=== PATIENT | male | born 1965 | race Caucasian/White ===

== ENCOUNTER 2016-10-07 02:14 | Inpatient (IN) | payer OTHER ==
[2016-10-07] VITALS (9 sets, daily range): BP systolic 98–128; BP diastolic 63–81
[~2016-10-07] VITALS: Ht 167.6 cm; Wt 81.6 kg
[~2016-10-07 02:14] MED LIST: NORVASC5 MG ORAL
--- NOTE | 2016-10-07 02:21 | Emergency Room Report ---
History of Present Illness General Chief Complaint: Dyspnea/Respdistress Source: Patient, Medical Record Present Illness HPI This is a 51-year-old male with a history diabetes and hypertension. He also has a psychiatric history taking antipsychotic medication. He is a smoker. He presents with chief complaint of shortness of breath. Onset for one day. Denies any fever or chills. Worse with exertion. Called 911. History is limited because the patient is a poor historian secondary to his mental capacity. Denies any chest pain. Allergies: Coded Allergies: No Known Allergies (Unverified , 10/07/16) Patient History Past Medical History: see triage record, old chart reviewed, DM, HTN, psych hx Past Surgical History: other Pertinent Family History: none Social History: Reports: smoking Immunizations: other Reviewed Nursing Documentation: PMH: Agreed, PSxH: Agreed Nursing Documentation-PMH Hx COPD: Yes History Of Psychiatric Problem: Yes - PTSD Review of Systems Eye: Denies: blurred vision, eye pain ENT: Denies: ear pain, nose congestion, throat swelling Respiratory: Reports: cough, shortness of breath Cardiovascular: Denies: chest pain, palpitations Gastrointestinal: Denies: abdominal pain, diarrhea, nausea, vomiting Musculoskeletal: Denies: back pain, joint pain Skin: Denies: rash Neurological: Denies: headache, numbness Endocrine: Denies: increased thirst, increased urine Hematologic/Lymphatic: Denies: easy bruising All Other Systems: negative except mentioned in HPI Physical Exam Vital Signs Date Time Temp Pulse Resp B/P Pulse Ox O2 Delivery O2 Flow Rate FiO2 10/07/16 02:00 97.7 90 18 100/69 81 Non-Rebreather 15.0 vitals with hypoxia Sp02 EP Interpretation: reviewed, normal General Appearance: well appearing, alert, moderate distress Head: normocephalic, atraumatic Eyes: bilateral eye EOMI, bilateral eye PERRL ENT: hearing grossly normal, normal pharynx Neck: full range of motion, supple, no meningismus Respiratory: chest non-tender, decreased breath sounds, accessory muscle use, wheezing Cardiovascular #1: regular rate, rhythm, no murmur Gastrointestinal: normal bowel sounds, non tender, no mass, no organomegaly, no bruit, non-distended Musculoskeletal: back normal, normal range of motion Neurologic: alert, oriented x3 Psychiatric: mood/affect normal Skin: warm/dry Procedures Critical Care Time Critical Care Time Critical care is mandated in this patient who presented with respiratory distress from chf and copd. Patient require my urgent intervention to attenuate the risks of respiratory collapse which may lead to cardiovascular collapse and . Critical care time is 35 minutes excluding any reportable procedure. Critical care time included evaluation, multiple reevaluation, looking at old charts, interpreting laboratory and diagnostic data, discussing case with patient and family and consultants, and charting. Medical Decision Making Diagnostic Impression: Primary Impression: Respiratory failure with hypoxia Qualified Codes: J96.01 - Acute respiratory failure with hypoxia Additional Impressions: COPD with acute exacerbation Acute exacerbation of CHF (congestive heart failure) Qualified Codes: I50.9 - Heart failure, unspecified Anemia in chronic kidney disease (CKD) Chronic kidney disease Qualified Codes: N18.9 - Chronic kidney disease, unspecified Hyponatremia ER Course Patient presents with acute respiratory failure. He has a component of COPD exacerbation and acute on chronic respiratory failure. He also CHF. Her sent her troponin negative. He felt better now but remained hypoxic off the BiPAP. Will admit to [facility]. Laboratory Tests Test 10/07/16 02:20 10/07/16 03:13 10/07/16 04:30 White Blood Count 10.9 K/UL (4.8-10.8) H Red Blood Count 4.06 M/UL (4.70-6.10) L Hemoglobin 11.7 G/DL (14.2-18.0) L Hematocrit 33.6 % (42.0-52.0) L Mean Corpuscular Volume 83 FL (80-99) Mean Corpuscular Hemoglobin 28.8 PG (27.0-31.0) Mean Corpuscular Hemoglobin Concent 34.7 G/DL (32.0-36.0) Red Cell Distribution Width 12.6 % (11.6-14.8) Platelet Count 249 K/UL (150-450) Mean Platelet Volume 6.9 FL (6.5-10.1) Neutrophils (%) (Auto) 83.4 % (45.0-75.0) H Lymphocytes (%) (Auto) 12.8 % (20.0-45.0) L Monocytes (%) (Auto) 1.8 % (1.0-10.0) Eosinophils (%) (Auto) 1.4 % (0.0-3.0) Basophils (%) (Auto) 0.6 % (0.0-2.0) Sodium Level 127 mEQ/L (135-145) L Potassium Level 4.3 mEQ/L (3.4-4.9) Chloride Level 85 mEQ/L (98-107) L Carbon Dioxide Level 22 mEQ/L (20-30) Anion Gap 20 (5-15) H Blood Urea Nitrogen 25 mg/dL (7-23) H Creatinine 1.7 mg/dL (0.7-1.2) H Estimat Glomerular Filtration Rate 42.4 mL/min (>60) Glucose Level 138 mg/dL (74-106) H Calcium Level 9.2 mg/dL (8.6-10.2) Total Bilirubin 0.5 mg/dL (0.0-1.2) Aspartate Amino Transf (AST/SGOT) 35 U/L (5-40) Alanine Aminotransferase (ALT/SGPT) 20 U/L (3-41) Alkaline Phosphatase 115 U/L (40-129) Total Creatine Kinase 354 U/L (38-174) H Creatine Kinase MB 1.6 ng/mL (< 6.7) Creatine Kinase MB Relative Index 0.4 Troponin I < 0.30 ng/mL (<=0.30) Pro-B-Type Natriuretic Peptide 844 pg/mL (0-125) H Total Protein 7.0 g/dL (6.6-8.7) Albumin 3.9 g/dL (3.5-5.2) Globulin 3.1 g/dL Albumin/Globulin Ratio 1.2 (1.0-2.7) Arterial Blood pH 7.336 (7.350-7.450) Arterial Blood Partial Pressure CO2 42.4 mmHg (35.0-45.0) Arterial Blood Partial Pressure O2 71.4 mmHg (75.0-100.0) L Arterial Blood HCO3 22.2 mmol/L (22.0-26.0) Arterial Blood Oxygen Saturation 92.9 % (92.0-98.0) Arterial Blood Base Excess -3.5 Rivera Test Positive Urine Color Pale yellow Urine Appearance Clear Urine pH 5 (4.5-8.0) Urine Specific [place] 1.015 (1.005-1.035) Urine Protein 1+ (NEGATIVE) H Urine Glucose (UA) Negative (NEGATIVE) Urine Ketones Negative (NEGATIVE) Urine Occult Blood 2+ (NEGATIVE) H Urine Nitrite Negative (NEGATIVE) Urine Bilirubin Negative (NEGATIVE) Urine Urobilinogen Normal MG/DL (0.0-1.0) Urine Leukocyte Esterase Negative (NEGATIVE) Urine RBC 2-4 /HPF (0 - 0) H Urine WBC 0-2 /HPF (0 - 0) Urine Squamous Epithelial Cells Few /LPF (NONE/OCC) Urine Bacteria Few /HPF (NONE) Lab Results Impression labs showed hyponatremia and elevated BNP. EKG Diagnostic Results Rate: normal Rhythm: NSR ST Segments: no acute changes Rhythm Strip Diag. Results EP Interpretation: yes Rate: 90 Rhythm: NSR, no PVC's, no ectopy Chest X-Ray Diagnostic Results EP Interpretation: Yes Findings: no consolidation, no effusion, no pneumothorax, other - chf Number of Views: 1 Last Vital Signs Date Time Temp Pulse Resp B/P Pulse Ox O2 Delivery O2 Flow Rate FiO2 10/07/16 02:07 90 18 Non-Rebreather 15.0 10/07/16 02:00 97.7 100/69 81 Status: improved Disposition: ADMITTED INPATIENT Condition: Critical RUBA LOVETT M.D. Oct 07, 2016 02:21
[2016-10-07] MEDS ORDERED: ACETAMINOPHEN-1 EAC1 ORAL (02:28)
[2016-10-07] MEDS ORDERED: TRAZODONE HCL100 MG ORAL (02:28)
[2016-10-07] MEDS ORDERED: GLIPIZIDE10 MG PO (02:28)
[2016-10-07] MEDS ORDERED: GEMFIBROZIL600 M1 PO (02:28)
[2016-10-07] MEDS ORDERED: HYDROXYZINE HCL50 M1 PO (02:28)
[2016-10-07] MEDS ORDERED: CYCLOBENZAPRINE10 MG ORAL (02:28)
[2016-10-07] MEDS ORDERED: LISINOPRIL5 MG ORAL (02:28)
[2016-10-07] MEDS ORDERED: TEMAZEPAM15 MG ORAL (02:28)
[2016-10-07] MEDS ORDERED: NAPROXEN250 M1 PO (02:28)
[2016-10-07] MEDS ORDERED: COGENTIN1 MG ORAL (02:28)
[2016-10-07] MEDS ORDERED: MIRTAZAPINE30 M1 ORAL (02:28)
[2016-10-07] MEDS ORDERED: ABILIFY20 MG ORAL (02:28)
[2016-10-07] MEDS ORDERED: TAMSULOSIN HCL0.4 MG ORAL (02:28)
[2016-10-07] MEDS ORDERED: OMEPRAZOLE20 M2 ORAL (02:28)
[2016-10-07] MEDS ORDERED: METFORMIN HCL500 M4 ORAL (02:28)
[2016-10-07] MEDS ORDERED: NEURONTIN300 MG ORAL ×2 (02:28)
[2016-10-07] MEDS ORDERED: SEROQUEL XR200 MG ORAL (02:28)
[2016-10-07] MEDS ORDERED: Solu-MEDROL 125mg Inj IVP ONE (02:30)
[2016-10-07] MEDS ORDERED: Ipratropium 0.02% Inh Soln 2.5ml UD HHN ONE (02:30)
[2016-10-07] MEDS ORDERED: Albuterol ud Inhalation HHN ONE (02:30)
[2016-10-07 02:34] LABS: BASOPHILS % (AUTO) 0.6 % (0.0-2.0); EOSINOPHILS % (AUTO) 1.4 % (0.0-3.0); LYMPHOCYTES % (AUTO) 12.8 % (20.0-45.0); MEAN CORPUSCULAR HEMOGLOBIN 28.8 PG (27.0-31.0); MEAN CORPUSCULAR HGB CONC 34.7 G/DL (32.0-36.0); MEAN CORPUSCULAR VOLUME 83 FL (80-99); MEAN PLATELET VOLUME 6.9 FL (6.5-10.1); MONOCYTES % (AUTO) 1.8 % (1.0-10.0); NEUTROPHILS % (AUTO) 83.4 % (45.0-75.0); PLATELET COUNT 249 K/UL (150-450); RED BLOOD COUNT 4.06 M/UL (4.70-6.10); RED CELL DISTRIBUTION WIDTH 12.6 % (11.6-14.8); WHITE BLOOD COUNT 10.9 K/UL (4.8-10.8)
[2016-10-07 02:46] LABS: TROPONIN I < 0.30 ng/mL (<=0.30)
[2016-10-07 02:50] LABS: ALBUMIN/GLOBULIN RATIO 1.2 (1.0-2.7); CALCIUM 9.2 mg/dL (8.6-10.2); CREATININE 1.7 mg/dL (0.7-1.2); GLOMERULAR FILTRATION RATE 42.4 mL/min (>60); POTASSIUM 4.3 mEQ/L (3.4-4.9)
[2016-10-07 03:01] LABS: CKMB 1.6 ng/mL (< 6.7)
[2016-10-07 03:34] LABS: ABG ALLEN TEST POSITIVE; ABG BASE EXCESS -3.5; ABG PCO2 42.4 mmHg (35.0-45.0)
[2016-10-07 04:37] LABS: APPEARANCE,URINE CLEAR; KETONES,URINE NEGATIVE (NEGATIVE); LEUKOCYTE ESTERASE ,URINE NEGATIVE (NEGATIVE); NITRITE,URINE NEGATIVE (NEGATIVE); PH,URINE 5 (4.5-8.0); PROTEIN,URINE 1+ (NEGATIVE); UROBILINOGEN,URINE NORMAL MG/DL (0.0-1.0)
[2016-10-07 04:45] LABS: WBC,URINE 0-2 /HPF (0 - 0)
[2016-10-07 04:46] LABS: BACTERIA,URINE FEW /HPF; SQUAMOUS EPITHELIAL CELL,UR FEW /LPF (NONE/OCC)
[2016-10-07] MEDS ORDERED: Miralax 17gm pkt ORAL PRN (07:00)
[2016-10-07] MEDS ORDERED: DuoNeb 0.5-3(2.5)mg/3ml neb HHN PRN (07:00)
[2016-10-07] MEDS ORDERED: Cyclobenzaprine 10mg Tab ORAL PRN (09:00)
[2016-10-07] MEDS: Tamsulosin 0.4mg cap ORAL SCH (09:15)
[2016-10-07] MEDS: Heparin 5000 units/ml inj SUBQ SCH ×2 (09:17→21:54)
[2016-10-07 10:35] LABS: ALANINE AMINOTRANSFERASE 22 U/L (3-41); ALBUMIN/GLOBULIN RATIO 1.2 (1.0-2.7); ANION GAP 21 (5-15); ASPARTATE AMINO TRANSFERASE 39 U/L (5-40); CALCIUM 9.4 mg/dL (8.6-10.2); CARBON DIOXIDE 21 mEQ/L (20-30); CHLORIDE 85 mEQ/L (98-107); CREATININE 1.6 mg/dL (0.7-1.2); GLOMERULAR FILTRATION RATE 45.4 mL/min (>60); HEMOLYSIS 22; MAGNESIUM 2.1 mg/dL (1.7-2.5); PHOSPHORUS 3.1 mg/dL (2.5-4.8); POTASSIUM 4.4 mEQ/L (3.4-4.9); SODIUM 127 mEQ/L (135-145); TOTAL PROTEIN 7.7 g/dL (6.6-8.7); URIC ACID 10.4 mg/dL (3.0-7.5)
[2016-10-07 10:40] LABS: TROPONIN I < 0.30 ng/mL (<=0.30)
[2016-10-07] MEDS: NovoLOG Insulin Flexpen SUBQ SCH ×3 (10:40→21:55)
[2016-10-07 10:53] LABS: FREE T3 1.5 pg/mL (2.3-4.2)
--- NOTE | 2016-10-07 11:36 | Consultation ---
History of Present Illness General Date patient seen: Oct 07, 2016 Chief Complaint: Dyspnea/Respdistress Referring physician: Dr. Brito Present Illness HPI 51-year-old male with a history of COPD, diabetes and hypertension, psychiatric history, smoker presented with chief complaint of shortness of breath. Onset for one day. Denies any fever or chills. Worse with exertion. Called 911. History is limited because the patient is a poor historian secondary to his mental capacity. Denies any chest pain. complaining of right lower flank pain Allergies: Coded Allergies: No Known Allergies (Unverified , 10/07/16) Medication History Scheduled Amlodipine Besylate (Norvasc), 5 MG ORAL DAILY, (Reported) Aripiprazole* (Abilify*), 30 MG ORAL BEDTIME, (Reported) Benztropine Mesylate (Benztropine Mesylate), 1 MG ORAL BEDTIME, (Reported) Cyclobenzaprine Hcl* (Flexeril*), 10 MG ORAL THREE TIMES A DAY, (Reported) Gabapentin (Neurontin), 300 MG ORAL BID, (Reported) Gabapentin (Neurontin), 600 MG ORAL TID, (Reported) Gemfibrozil (Gemfibrozil), 600 MG PO BID, (Reported) Glipizide (Glipizide), 5 MG PO BID, (Reported) Hydroxyzine Hcl (Hydroxyzine Hcl), 50 MG PO BEDTIME, (Reported) Lisinopril (Lisinopril*), 5 MG ORAL DAILY, (Reported) Metformin Hcl (Metformin Hcl Er), 500 MG ORAL BID, (Reported) Mirtazapine (Mirtazapine), 30 MG ORAL BEDTIME, (Reported) Naproxen (Naproxen), 500 MG PO BID, (Reported) Omeprazole (Omeprazole), 20 MG ORAL DAILY, (Reported) Quetiapine Fumarate (Seroquel Xr), 200 MG ORAL BEDTIME, (Reported) Tamsulosin Hcl (Tamsulosin Hcl*), 0.4 MG ORAL DAILY, (Reported) Temazepam (Temazepam*), 15 MG ORAL BEDTIME, (Reported) Trazodone Hcl* (Desyrel*), 150 MG ORAL BEDTIME, (Reported) Scheduled PRN Acetaminophen With Codeine (T#3) (Tylenol #3 Tab*), 1 TAB ORAL BID PRN for For Pain, (Reported) Patient History Healthcare decision maker Resuscitation status Full Code Advanced Directive on File Past Medical/Surgical History Past Medical/Surgical History: (1) Hypertension (2) PTSD (post-traumatic stress disorder) Family History Family History: (1) Nicotine addiction Review of Systems All Other Systems: negative except mentioned in HPI Physical Exam General Appearance: WD/WN Lines, tubes and drains: peripheral HEENT: normocephalic, atraumatic Neck: non-tender, normal alignment Respiratory/Chest: chest wall non-tender, rhonchi - bilaterally Cardiovascular/Chest: normal peripheral pulses, normal rate Abdomen: normal bowel sounds, non tender Extremities: normal range of motion Skin Exam: normal pigmentation 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 normal Last 24 Hour Vital Signs Date Time Temp Pulse Resp B/P Pulse Ox O2 Delivery O2 Flow Rate FiO2 10/07/16 09:16 86 115/70 10/07/16 08:00 97.3 87 18 115/70 93 Non-Rebreather 10/07/16 07:42 74 17 106/80 97 Bi-pap 80 10/07/16 07:15 79 14 Bi-pap 80 10/07/16 07:15 97.7 79 14 106/80 94 Bi-pap 80 10/07/16 06:59 81 15 97 Facial 80 10/07/16 06:56 75 13 110/77 100 Bi-pap 80 10/07/16 05:49 81 17 114/73 98 Bi-pap 80 10/07/16 05:02 75 18 92 Facial 80 10/07/16 04:56 80 10/07/16 04:32 85 19 106/73 94 Non-Rebreather 15.0 10/07/16 03:11 70 10/07/16 03:11 86 14 98/63 94 Bi-pap 70 10/07/16 03:09 70 10/07/16 02:50 89 14 98 Facial 100 10/07/16 02:49 90 19 98 Bi-pap 100 10/07/16 02:44 100 10/07/16 02:15 88 15 97 Bi-pap 100 10/07/16 02:15 87 15 Bi-pap 100 10/07/16 02:07 90 18 Non-Rebreather 15.0 10/07/16 02:00 97.7 90 18 100/69 81 Non-Rebreather 15.0 Intake and Output 10/06/16 10/07/16 19:00 07:00 Output Total 600 ml Balance -600 ml Output Urine Total 600 ml Laboratory Tests Test 10/07/16 02:20 10/07/16 03:13 10/07/16 04:30 10/07/16 09:20 White Blood Count 10.9 K/UL (4.8-10.8) H Red Blood Count 4.06 M/UL (4.70-6.10) L Hemoglobin 11.7 G/DL (14.2-18.0) L Hematocrit 33.6 % (42.0-52.0) L Mean Corpuscular Volume 83 FL (80-99) Mean Corpuscular Hemoglobin 28.8 PG (27.0-31.0) Mean Corpuscular Hemoglobin Concent 34.7 G/DL (32.0-36.0) Red Cell Distribution Width 12.6 % (11.6-14.8) Platelet Count 249 K/UL (150-450) Mean Platelet Volume 6.9 FL (6.5-10.1) Neutrophils (%) (Auto) 83.4 % (45.0-75.0) H Lymphocytes (%) (Auto) 12.8 % (20.0-45.0) L Monocytes (%) (Auto) 1.8 % (1.0-10.0) Eosinophils (%) (Auto) 1.4 % (0.0-3.0) Basophils (%) (Auto) 0.6 % (0.0-2.0) Sodium Level 127 mEQ/L (135-145) L 127 mEQ/L (135-145) L Potassium Level 4.3 mEQ/L (3.4-4.9) 4.4 mEQ/L (3.4-4.9) Chloride Level 85 mEQ/L (98-107) L 85 mEQ/L (98-107) L Carbon Dioxide Level 22 mEQ/L (20-30) 21 mEQ/L (20-30) Anion Gap 20 (5-15) H 21 (5-15) H Blood Urea Nitrogen 25 mg/dL (7-23) H 28 mg/dL (7-23) H Creatinine 1.7 mg/dL (0.7-1.2) H 1.6 mg/dL (0.7-1.2) H Estimat Glomerular Filtration Rate 42.4 mL/min (>60) 45.4 mL/min (>60) Glucose Level 138 mg/dL (74-106) H 310 mg/dL (74-106) #H Calcium Level 9.2 mg/dL (8.6-10.2) 9.4 mg/dL (8.6-10.2) Total Bilirubin 0.5 mg/dL (0.0-1.2) 0.5 mg/dL (0.0-1.2) Aspartate Amino Transf (AST/SGOT) 35 U/L (5-40) 39 U/L (5-40) Alanine Aminotransferase (ALT/SGPT) 20 U/L (3-41) 22 U/L (3-41) Alkaline Phosphatase 115 U/L (40-129) 130 U/L (40-129) H Total Creatine Kinase 354 U/L (38-174) H 292 U/L (38-174) H Creatine Kinase MB 1.6 ng/mL (< 6.7) Creatine Kinase MB Relative Index 0.4 Troponin I < 0.30 ng/mL (<=0.30) < 0.30 ng/mL (<=0.30) Pro-B-Type Natriuretic Peptide 844 pg/mL (0-125) H Total Protein 7.0 g/dL (6.6-8.7) 7.7 g/dL (6.6-8.7) Albumin 3.9 g/dL (3.5-5.2) 4.2 g/dL (3.5-5.2) Globulin 3.1 g/dL 3.5 g/dL Albumin/Globulin Ratio 1.2 (1.0-2.7) 1.2 (1.0-2.7) Arterial Blood pH 7.336 (7.350-7.450) Arterial Blood Partial Pressure CO2 42.4 mmHg (35.0-45.0) Arterial Blood Partial Pressure O2 71.4 mmHg (75.0-100.0) L Arterial Blood HCO3 22.2 mmol/L (22.0-26.0) Arterial Blood Oxygen Saturation 92.9 % (92.0-98.0) Arterial Blood Base Excess -3.5 Rivera Test Positive Urine Color Pale yellow Urine Appearance Clear Urine pH 5 (4.5-8.0) Urine Specific [place]ang 1.015 (1.005-1.035) Urine Protein 1+ (NEGATIVE) H Urine Glucose (UA) Negative (NEGATIVE) Urine Ketones Negative (NEGATIVE) Urine Occult Blood 2+ (NEGATIVE) H Urine Nitrite Negative (NEGATIVE) Urine Bilirubin Negative (NEGATIVE) Urine Urobilinogen Normal MG/DL (0.0-1.0) Urine Leukocyte Esterase Negative (NEGATIVE) Urine RBC 2-4 /HPF (0 - 0) H Urine WBC 0-2 /HPF (0 - 0) Urine Squamous Epithelial Cells Few /LPF (NONE/OCC) Urine Bacteria Few /HPF (NONE) Plasma/Serum Osmolality Pending Uric Acid 10.4 mg/dL (3.0-7.5) H Phosphorus Level 3.1 mg/dL (2.5-4.8) Magnesium Level 2.1 mg/dL (1.7-2.5) Thyroid Stimulating Hormone (TSH) 1.450 uIU/mL (0.300-4.500) Free Thyroxine 1.03 ng/dL (0.86-1.85) Free Triiodothyronine 1.5 pg/mL (2.3-4.2) L Cortisol Pending Height (Feet): 5 Height (Inches): 6.00 Weight (Pounds): 180 Medications Current Medications Medications (Trade) Dose Ordered Sig/Van Route PRN Reason Start Time Stop Time Status Last Admin Dose Admin Acetaminophen (Tylenol) 650 mg Q4H PRN ORAL T>100.5 10/07/16 07:00 11/06/16 06:59 Albuterol/ Ipratropium (DuoNeb 0.5-3(2.5)mg/3ml) 3 ml Q4H PRN HHN Shortness of Breath 10/07/16 07:00 10/12/16 06:59 Amlodipine Besylate (Norvasc) 5 mg DAILY ORAL 10/07/16 09:00 11/06/16 08:59 10/07/16 09:16 Aripiprazole (Abilify) 30 mg BEDTIME ORAL 10/07/16 21:00 11/06/16 20:59 Cyclobenzaprine HCl (Flexeril) 10 mg Q8H PRN ORAL MUSCLE SPASMS 10/07/16 09:00 4/9/17 08:59 Dextrose (Dextrose 50%) STAT PRN IV Hypoglycemia 10/07/16 07:00 11/06/16 06:59 Furosemide (Lasix) 40 mg EVERY 8 HOURS IV 10/07/16 14:00 11/06/16 13:59 Gabapentin (Neurontin) 300 mg BID ORAL 10/07/16 09:00 11/06/16 08:59 10/07/16 09:15 Gemfibrozil (Lopid) 600 mg BID ORAL 10/07/16 09:00 11/06/16 08:59 10/07/16 10:35 Heparin Sodium (Porcine) (Heparin 5000 units/ml) 5,000 units EVERY 12 HOURS SUBQ 10/07/16 09:00 11/06/16 08:59 10/07/16 09:17 Insulin Aspart (NovoLOG) BEFORE MEALS AND HS SUBQ 10/07/16 11:30 11/06/16 11:29 10/07/16 10:40 Morphine Sulfate (Morphine Sulfate) 2 mg Q4H PRN IVP For Pain 10/07/16 11:30 10/14/16 11:29 UNV Ondansetron HCl (Zofran) 4 mg Q6H PRN IVP Nausea & Vomiting 10/07/16 07:00 11/06/16 06:59 Polyethylene Glycol (Miralax) 17 gm DAILYPRN PRN ORAL Constipation 10/07/16 07:00 11/06/16 06:59 Tamsulosin HCl (Flomax) 0.4 mg DAILY ORAL 10/07/16 09:00 11/06/16 08:59 10/07/16 09:15 Temazepam (Restoril) 15 mg HSPRN PRN ORAL Insomnia 10/07/16 21:00 10/14/16 20:59 Trazodone HCl (Desyrel) 150 mg BEDTIME ORAL 10/07/16 21:00 11/06/16 20:59 Assessment/Plan Problem List: (1) Respiratory failure with hypoxia ICD Codes: J96.91 - Respiratory failure, unspecified with hypoxia SNOMED: 30085436015733525 Qualifiers: Qualified Codes: J96.01 - Acute respiratory failure with hypoxia (2) Multiple nodules of lung ICD Codes: R91.8 - Other nonspecific abnormal finding of lung field SNOMED: 400477823 (3) Hyponatremia ICD Codes: E87.1 - Hypo-osmolality and hyponatremia; D63.1 - Anemia in chronic kidney disease SNOMED: 65595996, 461037900 (4) Anemia in chronic kidney disease (CKD) ICD Codes: N18.9 - Chronic kidney disease, unspecified; D63.1 - Anemia in chronic kidney disease SNOMED: 738479547, 757509401 (5) COPD with acute exacerbation ICD Codes: J44.1 - Chronic obstructive pulmonary disease with (acute) exacerbation SNOMED: 735188877, 551924633 (6) Nicotine addiction ICD Codes: F17.200 - Nicotine dependence, unspecified, uncomplicated SNOMED: 74712057 Assessment/Plan sputum for c/s, afb respiratory isolation echocardiogram iv antibiotics sputum induction ppd skin testing TB gold test rule out malignancy. HIV testing ANDRESSA CRAIG Oct 07, 2016 11:36
[2016-10-07 11:37] LABS: MEAN CORPUSCULAR HEMOGLOBIN 28.6 PG (27.0-31.0); MEAN CORPUSCULAR HGB CONC 33.9 G/DL (32.0-36.0); MEAN CORPUSCULAR VOLUME 84 FL (80-99); MEAN PLATELET VOLUME 6.2 FL (6.5-10.1); PLATELET COUNT 254 K/UL (150-450); RED BLOOD COUNT 4.16 M/UL (4.70-6.10); WHITE BLOOD COUNT 11.4 K/UL (4.8-10.8)
[2016-10-07] MEDS: Morphine Sulfate 2mg/ml Inj IVP PRN (11:43)
[2016-10-07] MEDS ORDERED: PPD Tuberculin Skin Test 5TU IDERMAL ONE (12:30)
[2016-10-07 12:44] LABS: BAND NEUTROPHILS % (MANUAL) 4 % (0-8); BASOPHILS % (MANUAL) 0 % (0-2); EOSINOPHILS % (MANUAL) 2 % (0-3); LYMPHOCYTES % (MANUAL) 5 % (20-45); NEUTROPHILS % (MANUAL) 86 % (45-75); PLATELET ESTIMATE ADEQUATE; PLATELET MORPHOLOGY NORMAL; TOTAL CELLS COUNTED 100
[2016-10-07] MEDS ORDERED: Vancomycin 1.5 GM in D5W 325 ML IVPB ONE (13:30)
--- NOTE | 2016-10-07 13:54 | Diagnostic Imaging Report ---
Indication: Dyspnea Comparison: None A single view chest radiograph was obtained. Findings: Extensive bilateral infiltrates demonstrated within the lungs. Heart size is borderline enlarged. Bones are unremarkable. Impression: Extensive bilateral infiltrates. Pulmonary edema is in the differential
--- NOTE | 2016-10-07 15:42 | Diagnostic Imaging Report ---
Indication: Chest pain Technique: Continuous helical transaxial imaging of the chest was obtained from the thoracic inlet to the upper abdomen. No intravenous contrast was administered. Coronal 2-D reformats were also obtained. Total Dose length Product (DLP): [address] Dose Index Volume (CTDIvol): 26 mGy Comparison: none Findings: Extensive patchy groundglass opacities are demonstrated throughout the lung crook bilaterally. This is nonspecific and could represent a wide variety of different inflammatory and infectious conditions, pulmonary edema (cardiogenic versus noncardiogenic), leaky capillaries, ARDS, hypersensitivity pneumonitis among others. Heart appears to be normal in size. The pulmonary veins do not appear significantly enlarged and as such the findings are probably not cardiogenic or due to left heart decompensation. There is a hiatal hernia present. There are are small nodes in the mediastinum. The axilla appear clear. Cholecystectomy clips noted in the upper abdomen. There is epigastric fat-containing hernia. Impression: Extensive diffuse bilateral pulmonary groundglass opacities of a nonspecific nature. There is large differential diagnosis. The CT scanner at [facility] is accredited by the [employer] and the scans are performed using protocols designed to limit radiation exposure to as low as reasonably achievable to attain images of sufficient resolution adequate for diagnostic evaluation.
--- NOTE | 2016-10-07 16:43 | Diagnostic Imaging Report ---
Indication:Elevated Bun and Creatinine. Technique: Grayscale and duplex Doppler imaging of the kidneys performed. Comparison: None Findings: The size, contour, and echogenicity of both kidneys are within normal limits. There is a small right renal cyst measuring approximately 1.5 cm. There is no hydronephrosis. The IVC and urinary bladder are unremarkable. Kidneys are between 12 and 13 cm. Impression: Right renal cyst. Negative exam otherwise
--- NOTE | 2016-10-07 16:45 | History & Physical ---
History and Physical History & Physicial Monty Irwin MD Oct 07, 2016 16:45
[2016-10-07] MEDS: Piperacillin/Tazobactam 3.375 GM in NS 110 ML IVPB SCH (18:00)
[2016-10-07] MEDS: TraZODone 100mg tab ORAL SCH (21:50)
[2016-10-07] MEDS: ARIPiprazole 10mg tab ORAL SCH (21:56)
--- NOTE | 2016-10-07 22:59 | History and Physical Report ---
DATE OF ADMISSION: 10/07/2016 CHIEF COMPLAINT: Shortness of breath. HISTORY OF PRESENT ILLNESS: This is a 51 years old very unfortunate gentleman with past medical history significant for chronic smoker, diabetic type 2, hypertension, chronic obstructive pulmonary disease, history of psychiatric disorder, and BPH who was presented to the hospital complaining about shortness of breath over the past 24 hours progressively worsening. No fever or chills worsening after exertion. EMS was called. Subsequently, the patient was transferred to the hospital shortly. After initial evaluation, the patient was admitted to the hospital with acute chronic obstructive pulmonary disease exacerbation. Finding was confirmed on the CT scan with possible underlying pneumonia. PAST MEDICAL HISTORY/PAST SURGICAL HISTORY: As above. History of chronic obstructive pulmonary disease, dyslipidemia, hypertension, diabetes type 2, psychiatric disorder, chronic smoker, and BPH. MEDICATIONS: Significant for Norvasc, Abilify, benztropine, Flexeril, Neurontin, gemfibrozil, glipizide, hydroxyzine, lisinopril, metformin, mirtazapine, naproxen, omeprazole, Seroquel, Flomax, temazepam, and trazodone. ALLERGIES: No known drug allergies. SOCIAL HISTORY: The patient is a smoker and extensive history of smoking. No substance abuse. FAMILY HISTORY: Noncontributory. REVIEW OF SYSTEMS: Mostly as above. Denies any dysuria, frequency, or hematuria. Denies any hemoptysis. Complained about his cough. Denies any fall. Denies any head trauma. PHYSICAL EXAMINATION: VITAL SIGNS: On admission from the ER is temperature 97.7, pulse of 92, respiration 18, and blood pressure 100/69. GENERAL: The patient is awake. Shortness of breath on BiPAP. HEENT: His head and neck examination progressively grievance manager and someone intact. Neck was supple. No JVD. LUNGS: Entry with occasional crackles on the bases. Decreased air in the bases. No wheezes was appreciated. HEART: S1, S2. Distant heart sounds. Normal gallop. ABDOMEN: Soft and nontender. Mildly obese. EXTREMITIES: No cyanosis, clubbing, or edema. NEUROLOGIC: Cranial nerves II through XII are grossly intact. Motor . Gait was not assessed. Psychiatric evaluation - mood and affect is intact at this time. Rectal and genitourinary examination was refused and deferred. LABORATORY DATA: From the ER, WBC of 10.9, hemoglobin of 11, hematocrit 33, and platelets is 249,000. ABG - pH of 7.33, pCO2 of 42, pO2 of 71, and oxygen saturation 92%. Sodium 127, potassium 4.4, chloride 85, bicarbonate 21, BUN 28, and creatinine 1.6. GFR is 45. Plasma serum osmolality is 310. Uric acid is pending. Calcium 10.4. First and second troponins are essentially unremarkable. Lactic acid is at 530. CEA is 5.7. TSH is 1.45. Urinalysis, +1 protein, +2 occult blood, otherwise negative not significant and unremarkable. Human immunodeficiency virus test is negative. The patient had a chest x-ray extensive bilateral infiltrates and pulmonary edema versus pneumonia and atypical pneumonia. CT of the chest was done and extensive diffuse bilateral pulmonary ground-glass opacifications after nonspecific in nature. There is a large differential diagnosis for that. The patient's duplex of lower extremity was unremarkable. Echocardiogram showed the ejection fraction of 55% with no evidence of ventricular hypertrophy. Trace tricuspid systolic velocities suggests of the right ventricular systolic pressure of 21, 7 mmHg. No pulmonary regurgitation was present. The patient had the EKG. Normal sinus rhythm, rate of 92, no ST elevation was noted with the left atrial enlargement. ASSESSMENT: 1. Respiratory failure, acute hypoxemic respiratory failure. 2. History of PTSD. 3. Acute chronic obstructive pulmonary disease exacerbation. 4. Bilateral pneumonia. 5. Hypertension. 6. Diabetes type 2. 7. Dyslipidemia. 8. Anemia. 9. Chronic kidney disease. 10. Hyponatremia. PLAN: Admit the patient to [facility]. We will follow up , Pulmonary Critical Care. RECOMMENDATIONS: We will monitor laboratory in the morning. Broad-spectrum antibiotics with vancomycin and Zosyn. We will hold off on the Lasix at this time. We will resume home medications. Accu-Chek with sliding scale. We will hold off on follow up with culture. Monty Irwin M.D. DR: ONUR JOB#: [id number] CC:
[2016-10-08] VITALS: BP 129/75
[2016-10-08] MEDS: Piperacillin/Tazobactam 3.375 GM in NS 110 ML IVPB SCH ×5 (02:00→18:08)
[2016-10-08] MEDS: Morphine Sulfate 2mg/ml Inj IVP PRN ×4 (02:36→20:48)
[2016-10-08 04:00] VITALS: BP 118/77
[2016-10-08] MEDS: NovoLOG Insulin Flexpen SUBQ SCH ×4 (06:38→21:00)
[2016-10-08 07:12] LABS: MEAN CORPUSCULAR HEMOGLOBIN 28.8 PG (27.0-31.0); MEAN CORPUSCULAR HGB CONC 34.3 G/DL (32.0-36.0); MEAN CORPUSCULAR VOLUME 84 FL (80-99); PLATELET COUNT 331 K/UL (150-450); RED BLOOD COUNT 4.52 M/UL (4.70-6.10); RED CELL DISTRIBUTION WIDTH 12.8 % (11.6-14.8); WHITE BLOOD COUNT 18.1 K/UL (4.8-10.8)
[2016-10-08 07:44] LABS: TROPONIN I < 0.30 ng/mL (<=0.30)
[2016-10-08 07:48] LABS: CALCIUM 10.4 mg/dL (8.6-10.2); CREATININE 1.4 mg/dL (0.7-1.2); PHOSPHORUS 1.9 mg/dL (2.5-4.8); POTASSIUM 4.5 mEQ/L (3.4-4.9)
[2016-10-08 08:00] VITALS: BP 120/71
--- NOTE | 2016-10-08 10:25 | Diagnostic Imaging Report ---
Indication: DYSPNEA Technique: XRAY CHEST 1 V Comparison: 10/07/2016 Findings: Compared previous examination extensive interstitial disease remains. However, airspace disease has considerably decreased. No pleural fluid. No other change. Impression: Decreased pulmonary edema. Extensive interstitial disease or interstitial edema remains.
[2016-10-08] MEDS: Tamsulosin 0.4mg cap ORAL SCH (10:28)
[2016-10-08] MEDS: Heparin 5000 units/ml inj SUBQ SCH ×2 (10:29→20:59)
[2016-10-08 10:56] LABS: BAND NEUTROPHILS % (MANUAL) 7 % (0-8); BASOPHILS % (MANUAL) 0 % (0-2); EOSINOPHILS % (MANUAL) 0 % (0-3); LYMPHOCYTES % (MANUAL) 10 % (20-45); NEUTROPHILS % (MANUAL) 80 % (45-75); PLATELET ESTIMATE ADEQUATE; PLATELET MORPHOLOGY NORMAL; TOTAL CELLS COUNTED 100
--- NOTE | 2016-10-08 11:18 | Pulmonology Progress Note ---
Assessment/Plan Problems: (1) Respiratory failure with hypoxia (2) Multiple nodules of lung (3) Hyponatremia (4) Anemia in chronic kidney disease (CKD) (5) COPD with acute exacerbation (6) Nicotine addiction Respiratory: monitor respiratory rate, adjust FIO2, CXR Cardiac: start pressors, continue to monitor HR/BP Renal: F/U I&O, check electrolytes Infectious Disease: check cultures - pt doesnt let the respiratory do the sputum induction, continue antibiotics, add antibiotics, other - on zosyn, vancomycin Gastrointestinal: continue feedings/current rate Endocrine: monitor blood sugar, check HgA1C, continue sliding scale insulin Hematologic: monitor H/H, transfuse if hgb<8.5 Neurologic: PRN Ativan, keep patient comfortable Notes Reviewed: manager market intelligence, cardio, renal Discussed with: consultants, case fitter Subjective ROS Limited/Unobtainable: No Constitutional: Reports: no symptoms HEENT: Repors: no symptoms Allergies: Coded Allergies: No Known Allergies (Unverified , 10/07/16) Objective Last 24 Hour Vital Signs Date Time Temp Pulse Resp B/P Pulse Ox O2 Delivery O2 Flow Rate FiO2 10/08/16 10:28 90 119/78 10/08/16 08:00 97.2 83 23 120/71 100 Non-Rebreather 100 10/08/16 08:00 8 10/08/16 07:38 93 Non-Rebreather 15.0 100 10/08/16 07:37 Non-Rebreather 15.0 100 10/08/16 04:00 98.4 83 20 118/77 92 Non-Rebreather 10/08/16 03:43 85 10/08/16 00:00 98.0 86 20 129/75 93 Non-Rebreather 10/08/16 00:00 82 10/07/16 23:00 98.0 10/07/16 20:00 98.0 93 20 125/81 94 Non-Rebreather 10/07/16 20:00 96 10/07/16 19:00 Non-Rebreather 15.0 100 10/07/16 19:00 94 Non-Rebreather 15.0 100 10/07/16 17:00 97.3 94 16 128/69 91 Non-Rebreather 10/07/16 16:47 91 10/07/16 12:20 97.3 10/07/16 12:00 97.3 77 18 108/73 92 Non-Rebreather 10/07/16 12:00 80 10/07/16 12:00 82 Intake and Output 10/07/16 10/08/16 19:00 07:00 Intake Total 882.5 ml 260.0 ml Output Total 2650 ml 500 ml Balance -1767.5 ml -240.0 ml Intake Oral 720 ml 150 ml IV Total 162.5 ml 110.0 ml Output Urine Total 2650 ml 500 ml # Voids 5 General Appearance: WD/WN, no acute distress HEENT: normocephalic, anicteric Respiratory/Chest: chest wall non-tender, decreased breath sounds Cardiovascular: normal peripheral pulses, normal rate Abdomen: normal bowel sounds, soft, non tender Genitourinary: normal external genitalia Extremities: no cyanosis Skin: no rash Neurologic/Psychiatric: aromatherapist II-XII grossly normal Lymphatic: no neck adenopathy Laboratory Tests 10/07/16 12:15: Blastomyces Ab Immunodiffusion [Pending], Cryptococcus Antigen [Pending], Histoplasma Mycelial Antibody [Pending], Histoplasma Antibody w Mycelial Ag [ Pending], Histoplasma Antibody with Yeast Ag [Pending], TB Test (T-Spot) [ Pending], TB Test Nil Control (T-Spot) [Pending], TB Test Panel A (T-Spot) [ Pending], TB Test Panel B (T-Spot) [Pending], TB Test Positive Control (T-Spot) [Pending] 10/08/16 06:15: White Blood Count 18.1#H, Red Blood Count 4.52L, Hemoglobin 13.0L, Hematocrit 38.0L, Mean Corpuscular Volume 84, Mean Corpuscular Hemoglobin 28.8, Mean Corpuscular Hemoglobin Concent 34.3, Red Cell Distribution Width 12.8, Platelet Count 331, Mean Platelet Volume 7.0, Neutrophils (%) (Auto) , Lymphocytes (%) ( Auto) , Monocytes (%) (Auto) , Eosinophils (%) (Auto) , Basophils (%) (Auto) , Differential Total Cells Counted 100, Neutrophils % (Manual) 80H, Lymphocytes % (Manual) 10L, Monocytes % (Manual) 3, Eosinophils % (Manual) 0, Basophils % ( Manual) 0, Band Neutrophils 7, Platelet Estimate Adequate, Platelet Morphology Normal, Red Blood Cell Morphology Normal, Sodium Level 136, Potassium Level 4.5 , Chloride Level 92L, Carbon Dioxide Level 24, Anion Gap 20H, Blood Urea Nitrogen 38H, Creatinine 1.4H, Estimat Glomerular Filtration Rate 53.0, Glucose Level 184#H, Calcium Level 10.4H, Phosphorus Level 1.9L, Troponin I < 0.30, Albumin 4.5 Current Medications Medications (Trade) Dose Ordered Sig/Van Route PRN Reason Start Time Stop Time Status Last Admin Dose Admin Acetaminophen (Tylenol) 650 mg Q4H PRN ORAL T>100.5 10/07/16 07:00 11/06/16 06:59 Albuterol/ Ipratropium (DuoNeb 0.5-3(2.5)mg/3ml) 3 ml Q4H PRN HHN Shortness of Breath 10/07/16 07:00 10/12/16 06:59 Amlodipine Besylate (Norvasc) 5 mg DAILY ORAL 10/07/16 09:00 11/06/16 08:59 10/08/16 10:28 Aripiprazole (Abilify) 30 mg BEDTIME ORAL 10/07/16 21:00 11/06/16 20:59 10/07/16 21:56 Cyclobenzaprine HCl (Flexeril) 10 mg Q8H PRN ORAL MUSCLE SPASMS 10/07/16 09:00 11/06/16 08:59 Dextrose (Dextrose 50%) STAT PRN IV Hypoglycemia 10/07/16 07:00 11/06/16 06:59 Gabapentin (Neurontin) 300 mg BID ORAL 10/07/16 09:00 11/06/16 08:59 10/08/16 10:27 Gemfibrozil (Lopid) 600 mg BID ORAL 10/07/16 09:00 11/06/16 08:59 10/08/16 10:27 Heparin Sodium (Porcine) (Heparin 5000 units/ml) 5,000 units EVERY 12 HOURS SUBQ 10/07/16 09:00 11/06/16 08:59 10/08/16 10:29 Insulin Aspart (NovoLOG) BEFORE MEALS AND HS SUBQ 10/07/16 11:30 11/06/16 11:29 10/08/16 06:38 Lorazepam (Ativan 2mg/ml 1ml) 1 mg Q2H PRN IV For Anxiety 10/08/16 09:30 10/15/16 09:29 Morphine Sulfate (Morphine Sulfate) 2 mg Q4H PRN IVP Pain 4-10 10/07/16 11:30 10/14/16 11:29 10/08/16 10:31 Ondansetron HCl (Zofran) 4 mg Q6H PRN IVP Nausea & Vomiting 10/07/16 07:00 11/06/16 06:59 10/08/16 10:27 Piperacillin Sod/ Tazobactam Sod/ Sodium Chloride (Zosyn/Sodium Chloride) 110 ml @ 27.5 mls/hr Q8H IVPB 10/08/16 02:00 10/15/16 01:59 10/08/16 10:38 Polyethylene Glycol (Miralax) 17 gm DAILYPRN PRN ORAL Constipation 10/07/16 07:00 11/06/16 06:59 Tamsulosin HCl (Flomax) 0.4 mg DAILY ORAL 10/07/16 09:00 11/06/16 08:59 10/08/16 10:28 Temazepam (Restoril) 15 mg HSPRN PRN ORAL Insomnia 10/07/16 21:00 10/14/16 20:59 Trazodone HCl (Desyrel) 150 mg BEDTIME ORAL 10/07/16 21:00 11/06/16 20:59 10/07/16 21:50 Vancomycin HCl 1 ea 1 ea DAILY PRN MISC Per rx protocol 10/07/16 11:30 11/06/16 11:29 ANDRESSA CRAIG Oct 08, 2016 11:18
[2016-10-08] MEDS: LORazepam Inj 2mg/ml 1ml IV PRN (11:39)
[2016-10-08 12:00] VITALS: BP 129/88
[2016-10-08] MEDS ORDERED: Vancomycin 1.5gm/D5W 300ml 325 ML IVPB SCH (14:00)
[2016-10-08 16:00] VITALS: BP 138/85
--- NOTE | 2016-10-08 17:35 | Internal Med Progress Note ---
Subjective Physician Name Monty Irwin Attending Physician Monty Irwin MD Current Medications Medications (Trade) Dose Ordered Sig/Van Route PRN Reason Start Time Stop Time Status Last Admin Dose Admin Acetaminophen (Tylenol) 650 mg Q4H PRN ORAL T>100.5 10/07/16 07:00 11/06/16 06:59 Albuterol/ Ipratropium (DuoNeb 0.5-3(2.5)mg/3ml) 3 ml Q4H PRN HHN Shortness of Breath 10/07/16 07:00 10/12/16 06:59 Amlodipine Besylate (Norvasc) 5 mg DAILY ORAL 10/07/16 09:00 11/06/16 08:59 10/08/16 10:28 Aripiprazole (Abilify) 30 mg BEDTIME ORAL 10/07/16 21:00 11/06/16 20:59 10/07/16 21:56 Cyclobenzaprine HCl (Flexeril) 10 mg Q8H PRN ORAL MUSCLE SPASMS 10/07/16 09:00 11/06/16 08:59 Dextrose (Dextrose 50%) STAT PRN IV Hypoglycemia 10/07/16 07:00 11/06/16 06:59 Gabapentin (Neurontin) 300 mg BID ORAL 10/07/16 09:00 11/06/16 08:59 10/08/16 10:27 Heparin Sodium (Porcine) (Heparin 5000 units/ml) 5,000 units EVERY 12 HOURS SUBQ 10/07/16 09:00 11/06/16 08:59 10/08/16 10:29 Insulin Aspart (NovoLOG) BEFORE MEALS AND HS SUBQ 10/07/16 11:30 11/06/16 11:29 10/08/16 11:42 Lorazepam 1 mg 1 mg Q2H PRN IV For Anxiety 10/08/16 09:30 10/15/16 09:29 10/08/16 11:39 Morphine Sulfate (Morphine Sulfate) 2 mg Q4H PRN IVP Pain 4-10 10/07/16 11:30 10/14/16 11:29 10/08/16 10:31 Ondansetron HCl (Zofran) 4 mg Q6H PRN IVP Nausea & Vomiting 10/07/16 07:00 11/06/16 06:59 10/08/16 10:27 Piperacillin Sod/ Tazobactam Sod/ Sodium Chloride (Zosyn/Sodium Chloride) 110 ml @ 27.5 mls/hr Q8H IVPB 10/08/16 02:00 10/15/16 01:59 10/08/16 10:38 Polyethylene Glycol (Miralax) 17 gm DAILYPRN PRN ORAL Constipation 10/07/16 07:00 11/06/16 06:59 Tamsulosin HCl (Flomax) 0.4 mg DAILY ORAL 10/07/16 09:00 11/06/16 08:59 10/08/16 10:28 Temazepam (Restoril) 15 mg HSPRN PRN ORAL Insomnia 10/07/16 21:00 10/14/16 20:59 Trazodone HCl (Desyrel) 150 mg BEDTIME ORAL 10/07/16 21:00 11/06/16 20:59 10/07/16 21:50 Vancomycin HCl 1 ea 1 ea DAILY PRN MISC Per rx protocol 10/07/16 11:30 11/06/16 11:29 Vancomycin HCl/ Dextrose (Vancomycin/D5W) 275 ml @ 183.708 mls/hr Q12HR@0200,1400 IVPB 10/09/16 02:00 10/14/16 01:59 Allergies: Coded Allergies: No Known Allergies (Unverified , 10/07/16) Subjective awake, alert, responsive, on VM Objective Last Vital Signs Date Time Temp Pulse Resp B/P Pulse Ox O2 Delivery O2 Flow Rate FiO2 10/08/16 16:00 97.0 97 24 138/85 95 Non-Rebreather 100 10/08/16 07:38 15.0 Laboratory Tests Test 10/08/16 06:15 10/08/16 11:45 White Blood Count 18.1 K/UL (4.8-10.8) #H Red Blood Count 4.52 M/UL (4.70-6.10) L Hemoglobin 13.0 G/DL (14.2-18.0) L Hematocrit 38.0 % (42.0-52.0) L Mean Corpuscular Volume 84 FL (80-99) Mean Corpuscular Hemoglobin 28.8 PG (27.0-31.0) Mean Corpuscular Hemoglobin Concent 34.3 G/DL (32.0-36.0) Red Cell Distribution Width 12.8 % (11.6-14.8) Platelet Count 331 K/UL (150-450) Mean Platelet Volume 7.0 FL (6.5-10.1) Neutrophils (%) (Auto) % (45.0-75.0) Lymphocytes (%) (Auto) % (20.0-45.0) Monocytes (%) (Auto) % (1.0-10.0) Eosinophils (%) (Auto) % (0.0-3.0) Basophils (%) (Auto) % (0.0-2.0) Differential Total Cells Counted 100 Neutrophils % (Manual) 80 % (45-75) H Lymphocytes % (Manual) 10 % (20-45) L Monocytes % (Manual) 3 % (1-10) Eosinophils % (Manual) 0 % (0-3) Basophils % (Manual) 0 % (0-2) Band Neutrophils 7 % (0-8) Platelet Estimate Adequate Platelet Morphology Normal Red Blood Cell Morphology Normal Sodium Level 136 mEQ/L (135-145) Potassium Level 4.5 mEQ/L (3.4-4.9) Chloride Level 92 mEQ/L (98-107) L Carbon Dioxide Level 24 mEQ/L (20-30) Anion Gap 20 (5-15) H Blood Urea Nitrogen 38 mg/dL (7-23) H Creatinine 1.4 mg/dL (0.7-1.2) H Estimat Glomerular Filtration Rate 53.0 mL/min (>60) Glucose Level 184 mg/dL (74-106) #H Calcium Level 10.4 mg/dL (8.6-10.2) H Phosphorus Level 1.9 mg/dL (2.5-4.8) L Troponin I < 0.30 ng/mL (<=0.30) Albumin 4.5 g/dL (3.5-5.2) Random Vancomycin Level 4.5 ug/mL Intake and Output 10/07/16 10/08/16 19:00 07:00 Intake Total 882.5 ml 260.0 ml Output Total 2650 ml 500 ml Balance -1767.5 ml -240.0 ml Intake Oral 720 ml 150 ml IV Total 162.5 ml 110.0 ml Output Urine Total 2650 ml 500 ml # Voids 5 Objective GENERAL: The patient is awake. Shortness of breath on VM. HEENT: His head and neck examination progressively immigration consultant and someone intact. Neck was supple. No JVD. LUNGS: Entry with occasional crackles on the bases. Decreased air in the bases. No wheezes was appreciated. HEART: S1, S2. Distant heart sounds. Normal gallop. ABDOMEN: Soft and nontender. Mildly obese. EXTREMITIES: No cyanosis, clubbing, or edema. NEUROLOGIC: Cranial nerves II through XII are grossly intact. Motor intact Gait was not assessed. Psychiatric evaluation - mood and affect Rectal and genitourinary examination was refused and deferred. Assessment/Plan Assessment/Plan ASSESSMENT: 1. Acute hypoxemic respiratory failure. 2. History of PTSD. 3. Acute chronic obstructive pulmonary disease exacerbation. 4. Bilateral pneumonia. 5. Hypertension. 6. Diabetes type 2. 7. Dyslipidemia. 8. Anemia. 9. Chronic kidney disease. 10. Hyponatremia. PLAN: in [place]. Dr. Kearney for Pulmonary Critical Care. monitor laboratory in the morning. Broad-spectrum antibiotics with vancomycin and Zosyn. Accu-Chek with sliding scale. Monty Irwin MD Oct 08, 2016 17:35
[2016-10-08 20:00] VITALS: BP 127/76
[2016-10-08] MEDS: ARIPiprazole 10mg tab ORAL SCH (20:58)
[2016-10-08] MEDS: TraZODone 100mg tab ORAL SCH (21:16)
[2016-10-09] VITALS: BP 133/71
[2016-10-09] MEDS: Vancomycin 1gm in D5W 275ml IVPB SCH ×2 (01:20→14:16)
[2016-10-09] MEDS: Piperacillin/Tazobactam 3.375 GM in NS 110 ML IVPB SCH ×3 (01:21→18:22)
[2016-10-09] MEDS: Morphine Sulfate 2mg/ml Inj IVP PRN ×2 (01:22→16:44)
[2016-10-09] MEDS: LORazepam Inj 2mg/ml 1ml IV PRN ×2 (03:39→14:16)
[2016-10-09 05:03] LABS: BASOPHILS % (AUTO) 0.9 % (0.0-2.0); LYMPHOCYTES % (AUTO) 14.3 % (20.0-45.0); MEAN CORPUSCULAR HEMOGLOBIN 28.6 PG (27.0-31.0); MEAN CORPUSCULAR HGB CONC 33.4 G/DL (32.0-36.0); MEAN CORPUSCULAR VOLUME 86 FL (80-99); MEAN PLATELET VOLUME 6.4 FL (6.5-10.1); MONOCYTES % (AUTO) 3.7 % (1.0-10.0); NEUTROPHILS % (AUTO) 80.1 % (45.0-75.0); PLATELET COUNT 311 K/UL (150-450); RED BLOOD COUNT 4.19 M/UL (4.70-6.10); RED CELL DISTRIBUTION WIDTH 13.3 % (11.6-14.8); WHITE BLOOD COUNT 9.3 K/UL (4.8-10.8)
[2016-10-09 07:10] LABS: TROPONIN I < 0.30 ng/mL (<=0.30)
[2016-10-09] MEDS: NovoLOG Insulin Flexpen SUBQ SCH ×4 (07:14→21:57)
[2016-10-09 07:17] LABS: ALBUMIN/GLOBULIN RATIO 1.1 (1.0-2.7); CREATININE 1.3 mg/dL (0.7-1.2); GLOMERULAR FILTRATION RATE 57.7 mL/min (>60); MAGNESIUM 2.3 mg/dL (1.7-2.5); PHOSPHORUS 2.6 mg/dL (2.5-4.8); POTASSIUM 3.9 mEQ/L (3.4-4.9)
[2016-10-09 08:00] VITALS: BP 114/81
[2016-10-09] MEDS: Tamsulosin 0.4mg cap ORAL SCH (08:58)
[2016-10-09] MEDS: Heparin 5000 units/ml inj SUBQ SCH ×2 (08:59→21:39)
--- NOTE | 2016-10-09 09:56 | Diagnostic Imaging Report ---
Indication: DYSPNEA Technique: XRAY CHEST 1 V. Comparison: 10/08/2016 Findings: The cardiomediastinal silhouette is unchanged. Bilateral mixed interstitial and airspace disease is again seen. There has been no change from prior exam. Impression: No significant change from prior examination.
[2016-10-09 12:00] VITALS: BP 119/78
[2016-10-09 16:00] VITALS: BP 133/65
--- NOTE | 2016-10-09 19:49 | Internal Med Progress Note ---
Subjective Physician Name Monty Irwin Attending Physician Monty Irwin MD Current Medications Medications (Trade) Dose Ordered Sig/Van Route PRN Reason Start Time Stop Time Status Last Admin Dose Admin Acetaminophen (Tylenol) 650 mg Q4H PRN ORAL T>100.5 10/07/16 07:00 11/06/16 06:59 Albuterol/ Ipratropium (DuoNeb 0.5-3(2.5)mg/3ml) 3 ml Q4H PRN HHN Shortness of Breath 10/07/16 07:00 10/12/16 06:59 Amlodipine Besylate (Norvasc) 5 mg DAILY ORAL 10/07/16 09:00 11/06/16 08:59 10/09/16 08:58 Aripiprazole (Abilify) 30 mg BEDTIME ORAL 10/07/16 21:00 11/06/16 20:59 10/08/16 20:58 Cyclobenzaprine HCl (Flexeril) 10 mg Q8H PRN ORAL MUSCLE SPASMS 10/07/16 09:00 11/06/16 08:59 Dextrose (Dextrose 50%) STAT PRN IV Hypoglycemia 10/07/16 07:00 11/06/16 06:59 Gabapentin (Neurontin) 300 mg BID ORAL 10/07/16 09:00 11/06/16 08:59 10/09/16 18:24 Heparin Sodium (Porcine) (Heparin 5000 units/ml) 5,000 units EVERY 12 HOURS SUBQ 10/07/16 09:00 11/06/16 08:59 10/09/16 08:59 Insulin Aspart (NovoLOG) BEFORE MEALS AND HS SUBQ 10/07/16 11:30 11/06/16 11:29 10/09/16 07:14 Ondansetron HCl (Zofran) 4 mg Q6H PRN IVP Nausea & Vomiting 10/07/16 07:00 11/06/16 06:59 10/08/16 10:27 Piperacillin Sod/ Tazobactam Sod 3.375 gm/Sodium Chloride 110 ml @ 27.5 mls/hr Q8H IVPB 10/08/16 02:00 10/15/16 01:59 10/09/16 18:22 Polyethylene Glycol (Miralax) 17 gm DAILYPRN PRN ORAL Constipation 10/07/16 07:00 11/06/16 06:59 Tamsulosin HCl (Flomax) 0.4 mg DAILY ORAL 10/07/16 09:00 11/06/16 08:59 10/09/16 08:58 Temazepam (Restoril) 15 mg HSPRN PRN ORAL Insomnia 10/07/16 21:00 10/14/16 20:59 Trazodone HCl (Desyrel) 150 mg BEDTIME ORAL 10/07/16 21:00 11/06/16 20:59 10/08/16 21:16 Vancomycin HCl 1 ea 1 ea DAILY PRN MISC Per rx protocol 10/07/16 11:30 11/06/16 11:29 Vancomycin HCl/ Dextrose (Vancomycin/D5W) 275 ml @ 183.708 mls/hr Q12HR@0200,1400 IVPB 10/09/16 02:00 10/14/16 01:59 10/09/16 14:16 Allergies: Coded Allergies: No Known Allergies (Unverified , 10/07/16) Subjective awake but confused and disoriented, responsive, on VM Objective Last Vital Signs Date Time Temp Pulse Resp B/P Pulse Ox O2 Delivery O2 Flow Rate FiO2 10/09/16 19:30 Non-Rebreather 15.0 100 10/09/16 19:30 93 10/09/16 19:15 96.4 10/09/16 16:00 97 24 133/65 Laboratory Tests Test 10/09/16 03:55 White Blood Count 9.3 K/UL (4.8-10.8) Red Blood Count 4.19 M/UL (4.70-6.10) L Hemoglobin 12.0 G/DL (14.2-18.0) L Hematocrit 35.9 % (42.0-52.0) L Mean Corpuscular Volume 86 FL (80-99) Mean Corpuscular Hemoglobin 28.6 PG (27.0-31.0) Mean Corpuscular Hemoglobin Concent 33.4 G/DL (32.0-36.0) Red Cell Distribution Width 13.3 % (11.6-14.8) Platelet Count 311 K/UL (150-450) Mean Platelet Volume 6.4 FL (6.5-10.1) L Neutrophils (%) (Auto) 80.1 % (45.0-75.0) H Lymphocytes (%) (Auto) 14.3 % (20.0-45.0) L Monocytes (%) (Auto) 3.7 % (1.0-10.0) Eosinophils (%) (Auto) 1.0 % (0.0-3.0) Basophils (%) (Auto) 0.9 % (0.0-2.0) Sodium Level 139 mEQ/L (135-145) Potassium Level 3.9 mEQ/L (3.4-4.9) Chloride Level 94 mEQ/L (98-107) L Carbon Dioxide Level 27 mEQ/L (20-30) Anion Gap 18 (5-15) H Blood Urea Nitrogen 35 mg/dL (7-23) H Creatinine 1.3 mg/dL (0.7-1.2) H Estimat Glomerular Filtration Rate 57.7 mL/min (>60) Glucose Level 171 mg/dL (74-106) H Calcium Level 10.0 mg/dL (8.6-10.2) Phosphorus Level 2.6 mg/dL (2.5-4.8) Magnesium Level 2.3 mg/dL (1.7-2.5) Total Bilirubin 0.4 mg/dL (0.0-1.2) Aspartate Amino Transf (AST/SGOT) 38 U/L (5-40) Alanine Aminotransferase (ALT/SGPT) 19 U/L (3-41) Alkaline Phosphatase 151 U/L (40-129) H Troponin I < 0.30 ng/mL (<=0.30) Total Protein 8.0 g/dL (6.6-8.7) Albumin 4.3 g/dL (3.5-5.2) Globulin 3.7 g/dL Albumin/Globulin Ratio 1.1 (1.0-2.7) Microbiology Date/Time Source Procedure Growth Status 10/08/16 12:00 Sputum Induced Gram Stain - Final Resulted 10/08/16 12:00 Sputum Induced Sputum Culture Pending Resulted 10/07/16 05:10 Nasal Nares MRSA Culture - Final NO METHICILLIN RESISTANT STAPH AUREUS... Complete 10/07/16 05:10 Rectum VRE Culture - Final NO VANCOMYCIN RESISTANT ENTEROCOCCUS ... Complete Intake and Output 10/08/16 10/09/16 19:00 07:00 Intake Total 512.50 ml 577.416 ml Output Total 700 ml 1100 ml Balance -187.50 ml -522.584 ml Intake Oral 240 ml 100 ml IV Total 272.50 ml 477.416 ml Output Urine Total 700 ml 1100 ml Objective GENERAL: The patient is awake but disoriented. Shortness of breath on VM. HEENT: His head and neck examination progressively clinical project assistant and someone intact. Neck was supple. No JVD. LUNGS: bilateral air Entry with less crackles on the bases. Decreased air in the bases. No wheezes. HEART: S1, S2. Distant heart sounds. Normal Murmur. ABDOMEN: Soft and nontender. Mildly obese. EXTREMITIES: No cyanosis, clubbing, or edema. NEUROLOGIC: Cranial nerves II through XII are grossly intact. Motor intact Gait was not assessed. Psychiatric evaluation - mood and affect Rectal and genitourinary examination was refused and deferred. Assessment/Plan Assessment/Plan ASSESSMENT: 1. Acute hypoxemic respiratory failure. 2. History of PTSD. 3. Acute chronic obstructive pulmonary disease exacerbation. 4. Bilateral pneumonia. 5. Hypertension. 6. Diabetes type 2. 7. Dyslipidemia. 8. Anemia. 9. Chronic kidney disease. 10. Hyponatremia. PLAN: in [place]. Dr. Kearney for Pulmonary Critical Care. monitor laboratory in the morning. Broad-spectrum antibiotics with vancomycin and Zosyn. Accu-Chek with sliding scale. DC All Morphine / Ativan / Flexeril Monty Irwin MD Oct 09, 2016 19:49
[2016-10-09 20:00] VITALS: BP 121/82
[2016-10-09] MEDS: TraZODone 100mg tab ORAL SCH (21:40)
[2016-10-09] MEDS: ARIPiprazole 10mg tab ORAL SCH (21:41)
--- NOTE | 2016-10-09 23:14 | Pulmonology Progress Note ---
Assessment/Plan Problems: (1) Respiratory failure with hypoxia (2) Multiple nodules of lung (3) Hyponatremia (4) Anemia in chronic kidney disease (CKD) (5) COPD with acute exacerbation (6) Nicotine addiction Assessment/Plan clinically improving continue antibiotics respiratory treatment f/u electrolytes check sputum Subjective ROS Limited/Unobtainable: No Interval Events: on 100% NRM Allergies: Coded Allergies: No Known Allergies (Unverified , 10/07/16) Objective Last 24 Hour Vital Signs Date Time Temp Pulse Resp B/P Pulse Ox O2 Delivery O2 Flow Rate FiO2 10/09/16 20:00 98.1 94 21 121/82 90 Non-Rebreather 10/09/16 20:00 94 10/09/16 19:30 Non-Rebreather 15.0 100 10/09/16 19:30 93 Non-Rebreather 15.0 100 10/09/16 19:15 96.4 10/09/16 17:09 96.4 10/09/16 16:00 96.4 97 24 133/65 96 Non-Rebreather 100 10/09/16 16:00 96 10/09/16 12:00 97.5 91 21 119/78 97 Non-Rebreather 100 10/09/16 12:00 93 10/09/16 08:58 99 114/81 10/09/16 08:07 100 Non-Rebreather 15.0 100 10/09/16 08:07 Non-Rebreather 15.0 100 10/09/16 08:00 99 10/09/16 08:00 97.0 110 20 114/81 90 Non-Rebreather 100 10/09/16 04:00 108 10/09/16 00:00 106 10/09/16 00:00 98.0 105 24 133/71 100 Non-Rebreather 100 10/09/16 00:00 98.0 105 24 133/71 100 Non-Rebreather Intake and Output 10/08/16 10/09/16 19:00 07:00 Intake Total 512.50 ml 577.416 ml Output Total 700 ml 1100 ml Balance -187.50 ml -522.584 ml Intake Oral 240 ml 100 ml IV Total 272.50 ml 477.416 ml Output Urine Total 700 ml 1100 ml Objective General Appearance: WD/WN, no acute distress HEENT: normocephalic, anicteric Respiratory/Chest: chest wall non-tender, decreased breath sounds, positive rhonchi Cardiovascular: normal peripheral pulses, normal rate Abdomen: normal bowel sounds, soft, non tender Genitourinary: normal external genitalia Extremities: no cyanosis Skin: no rash Neurologic/Psychiatric: editor school photograph II-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 Complete 10/07/16 05:10 Rectum VRE Culture - Final NO VANCOMYCIN RESISTANT ENTEROCOCCUS ... Complete Laboratory Tests 10/09/16 03:55: White Blood Count 9.3, Red Blood Count 4.19L, Hemoglobin 12.0L, Hematocrit 35.9L , Mean Corpuscular Volume 86, Mean Corpuscular Hemoglobin 28.6, Mean Corpuscular Hemoglobin Concent 33.4, Red Cell Distribution Width 13.3, Platelet Count 311, Mean Platelet Volume 6.4L, Neutrophils (%) (Auto) 80.1H, Lymphocytes (%) (Auto) 14.3L, Monocytes (%) (Auto) 3.7, Eosinophils (%) (Auto) 1.0, Basophils (%) (Auto) 0.9, Sodium Level 139, Potassium Level 3.9, Chloride Level 94L, Carbon Dioxide Level 27, Anion Gap 18H, Blood Urea Nitrogen 35H, Creatinine 1.3H, Estimat Glomerular Filtration Rate 57.7, Glucose Level 171H, Calcium Level 10.0, Phosphorus Level 2.6, Magnesium Level 2.3, Total Bilirubin 0.4, Aspartate Amino Transf (AST/SGOT) 38, Alanine Aminotransferase (ALT/SGPT) 19, Alkaline Phosphatase 151H, Troponin I < 0.30, Total Protein 8.0, Albumin 4.3 , Globulin 3.7, Albumin/Globulin Ratio 1.1 Current Medications Medications (Trade) Dose Ordered Sig/Van Route PRN Reason Start Time Stop Time Status Last Admin Dose Admin Acetaminophen (Tylenol) 650 mg Q4H PRN ORAL T>100.5 10/07/16 07:00 11/06/16 06:59 Albuterol/ Ipratropium (DuoNeb 0.5-3(2.5)mg/3ml) 3 ml Q4H PRN HHN Shortness of Breath 10/07/16 07:00 10/12/16 06:59 Amlodipine Besylate (Norvasc) 5 mg DAILY ORAL 10/07/16 09:00 11/06/16 08:59 10/09/16 08:58 Aripiprazole (Abilify) 30 mg BEDTIME ORAL 10/07/16 21:00 11/06/16 20:59 10/09/16 21:41 Dextrose (Dextrose 50%) STAT PRN IV Hypoglycemia 10/07/16 07:00 11/06/16 06:59 Gabapentin (Neurontin) 300 mg BID ORAL 10/07/16 09:00 11/06/16 08:59 10/09/16 18:24 Heparin Sodium (Porcine) (Heparin 5000 units/ml) 5,000 units EVERY 12 HOURS SUBQ 10/07/16 09:00 11/06/16 08:59 10/09/16 21:39 Insulin Aspart (NovoLOG) BEFORE MEALS AND HS SUBQ 10/07/16 11:30 11/06/16 11:29 10/09/16 21:57 Ondansetron HCl (Zofran) 4 mg Q6H PRN IVP Nausea & Vomiting 10/07/16 07:00 11/06/16 06:59 10/08/16 10:27 Piperacillin Sod/ Tazobactam Sod 3.375 gm/Sodium Chloride 110 ml @ 27.5 mls/hr Q8H IVPB 10/08/16 02:00 10/15/16 01:59 10/09/16 18:22 Polyethylene Glycol (Miralax) 17 gm DAILYPRN PRN ORAL Constipation 10/07/16 07:00 11/06/16 06:59 Tamsulosin HCl (Flomax) 0.4 mg DAILY ORAL 10/07/16 09:00 11/06/16 08:59 10/09/16 08:58 Temazepam (Restoril) 15 mg HSPRN PRN ORAL Insomnia 10/07/16 21:00 10/14/16 20:59 Trazodone HCl (Desyrel) 150 mg BEDTIME ORAL 10/07/16 21:00 11/06/16 20:59 10/09/16 21:40 Vancomycin HCl 1 ea 1 ea DAILY PRN MISC Per rx protocol 10/07/16 11:30 11/06/16 11:29 Vancomycin HCl/ Dextrose (Vancomycin/D5W) 275 ml @ 183.708 mls/hr Q12HR@0200,1400 IVPB 10/09/16 02:00 10/14/16 01:59 10/09/16 14:16 ANDRESSA CRAIG Oct 09, 2016 23:14
[2016-10-10] VITALS (7 sets, daily range): BP systolic 105–178; BP diastolic 71–92
[2016-10-10] MEDS: Vancomycin 1gm in D5W 275ml IVPB SCH ×2 (01:34→13:31)
[2016-10-10 02:05] LABS: ANION GAP 20 (5-15); CALCIUM 9.7 mg/dL (8.6-10.2); CARBON DIOXIDE 25 mEQ/L (20-30); CHLORIDE 96 mEQ/L (98-107); CREATININE 0.9 mg/dL (0.7-1.2); GLOMERULAR FILTRATION RATE > 60 mL/min (>60); HEMOLYSIS 3; POTASSIUM 3.9 mEQ/L (3.4-4.9); SODIUM 141 mEQ/L (135-145)
[2016-10-10] MEDS: Piperacillin/Tazobactam 3.375 GM in NS 110 ML IVPB SCH ×3 (03:30→19:17)
[2016-10-10] MEDS: NovoLOG Insulin Flexpen SUBQ SCH ×4 (05:56→22:02)
[2016-10-10] MEDS: Heparin 5000 units/ml inj SUBQ SCH ×2 (08:33→21:02)
[2016-10-10] MEDS: Tamsulosin 0.4mg cap ORAL SCH (08:33)
--- NOTE | 2016-10-10 08:49 | Diagnostic Imaging Report ---
Indication: Short of breath Technique: XRAY CHEST 1 V Comparison:Current examination obtained at 1019 compared with one obtained earlier today at 08 18 Findings: The techniques between the 2 films are somewhat different. However, allowing for technique, there is no change in bilateral interstitial infiltrate. Impression: No change from 2 hours earlier.
--- NOTE | 2016-10-10 10:57 | Internal Med Progress Note ---
Subjective Date of Service: Oct 10, 2016 Physician Name Justin Musa Attending Physician Monty Irwin MD Current Medications Medications (Trade) Dose Ordered Sig/Van Route PRN Reason Start Time Stop Time Status Last Admin Dose Admin Acetaminophen (Tylenol) 650 mg Q4H PRN ORAL T>100.5 10/07/16 07:00 11/06/16 06:59 Albuterol/ Ipratropium (DuoNeb 0.5-3(2.5)mg/3ml) 3 ml Q4H PRN HHN Shortness of Breath 10/07/16 07:00 10/12/16 06:59 Amlodipine Besylate (Norvasc) 5 mg DAILY ORAL 10/07/16 09:00 11/06/16 08:59 10/10/16 08:31 Aripiprazole (Abilify) 30 mg BEDTIME ORAL 10/07/16 21:00 11/06/16 20:59 10/09/16 21:41 Dextrose (Dextrose 50%) STAT PRN IV Hypoglycemia 10/07/16 07:00 11/06/16 06:59 Gabapentin (Neurontin) 300 mg BID ORAL 10/07/16 09:00 11/06/16 08:59 10/10/16 08:32 Heparin Sodium (Porcine) (Heparin 5000 units/ml) 5,000 units EVERY 12 HOURS SUBQ 10/07/16 09:00 11/06/16 08:59 10/10/16 08:33 Insulin Aspart (NovoLOG) BEFORE MEALS AND HS SUBQ 10/07/16 11:30 11/06/16 11:29 10/09/16 21:57 Ondansetron HCl (Zofran) 4 mg Q6H PRN IVP Nausea & Vomiting 10/07/16 07:00 11/06/16 06:59 10/10/16 08:33 Piperacillin Sod/ Tazobactam Sod 3.375 gm/Sodium Chloride 110 ml @ 27.5 mls/hr Q8H IVPB 10/08/16 02:00 10/15/16 01:59 10/10/16 09:47 Polyethylene Glycol (Miralax) 17 gm DAILYPRN PRN ORAL Constipation 10/07/16 07:00 11/06/16 06:59 Tamsulosin HCl (Flomax) 0.4 mg DAILY ORAL 10/07/16 09:00 11/06/16 08:59 10/10/16 08:33 Temazepam (Restoril) 15 mg HSPRN PRN ORAL Insomnia 10/07/16 21:00 10/14/16 20:59 Trazodone HCl (Desyrel) 150 mg BEDTIME ORAL 10/07/16 21:00 11/06/16 20:59 10/09/16 21:40 Vancomycin HCl 1 ea 1 ea DAILY PRN MISC Per rx protocol 10/07/16 11:30 11/06/16 11:29 Vancomycin HCl/ Dextrose (Vancomycin/D5W) 275 ml @ 183.708 mls/hr Q12HR@0200,1400 IVPB 10/09/16 02:00 10/14/16 01:59 10/10/16 01:34 Allergies: Coded Allergies: No Known Allergies (Unverified , 10/07/16) ROS Limited/Unobtainable: No Constitutional: Reports: no symptoms HEENT: Reports: no symptoms Cardiovascular: Reports: no symptoms Respiratory: Reports: shortness of breath Gastrointestinal/Abdominal: Reports: no symptoms Genitourinary: Reports: no symptoms Neurologic/Psychiatric: Reports: no symptoms Subjective 51 YO M admitted with respiratory distress, now pneumonia. KA[facility]AL. Currently on non-rebreather mask. Cover for Int Alexander-Dr Irwin. Objective Last Vital Signs Date Time Temp Pulse Resp B/P Pulse Ox O2 Delivery O2 Flow Rate FiO2 10/10/16 08:31 96 131/81 10/10/16 08:00 97.4 24 98 Non-Rebreather 97 10/09/16 19:30 15.0 Laboratory Tests Test 10/10/16 01:10 Sodium Level 141 mEQ/L (135-145) Potassium Level 3.9 mEQ/L (3.4-4.9) Chloride Level 96 mEQ/L (98-107) L Carbon Dioxide Level 25 mEQ/L (20-30) Anion Gap 20 (5-15) H Blood Urea Nitrogen 25 mg/dL (7-23) H Creatinine 0.9 mg/dL (0.7-1.2) Estimat Glomerular Filtration Rate > 60 mL/min (>60) Glucose Level 105 mg/dL (74-106) Calcium Level 9.7 mg/dL (8.6-10.2) Random Vancomycin Level 9.6 ug/mL Microbiology Date/Time Source Procedure Growth Status 10/08/16 12:00 Sputum Induced Gram Stain - Final Resulted 10/08/16 12:00 Sputum Culture - Preliminary Gram Negative Bacillus 1 Resulted Intake and Output 10/09/16 10/10/16 19:00 07:00 Intake Total 260 ml Output Total 400 ml 1100 ml Balance -400 ml -840 ml Intake Oral 260 ml Output Urine Total 400 ml 1100 ml Objective Objective GENERAL: The patient is awake but disoriented. Shortness of breath on VM. 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 Neck was supple. No JVD. LUNGS: bilateral air Entry with less crackles on the bases. Decreased air in the bases. No wheezes. HEART: S1, S2. Distant heart sounds. Normal Murmur. ABDOMEN: Soft and nontender. Mildly obese. EXTREMITIES: No cyanosis, clubbing, or edema. NEUROLOGIC: Cranial nerves II through XII are grossly intact. Motor intact Gait was not assessed. Psychiatric evaluation - mood and affect Rectal and genitourinary examination was refused and deferred. Assessment/Plan Assessment/Plan Assessment/Plan Assessment/Plan ASSESSMENT: 1. Acute hypoxemic respiratory failure. 2. History of PTSD. 3. Acute chronic obstructive pulmonary disease exacerbation. 4. Bilateral pneumonia. 5. Hypertension. 6. Diabetes type 2. 7. Dyslipidemia. 8. Anemia. 9. Chronic kidney disease. 10. Hyponatremia. PLAN: in [facility]. Dr. Kearney for Pulmonary Critical Care. monitor laboratory in the morning. Broad-spectrum antibiotics with vancomycin and Zosyn. Accu-Chek with sliding scale. DC All Morphine / Ativan / Flexeril JUSTIN MUSA Oct 10, 2016 10:57
--- NOTE | 2016-10-10 11:23 | Pulmonology Progress Note ---
Assessment/Plan Problems: (1) Respiratory failure with hypoxia (2) Multiple nodules of lung (3) Hyponatremia (4) Anemia in chronic kidney disease (CKD) (5) COPD with acute exacerbation (6) Nicotine addiction Assessment/Plan clinically improving continue antibiotics respiratory treatment f/u electrolytes check sputum add carafate po for epigastric pain PPD was negative sputum has GNR. Subjective ROS Limited/Unobtainable: No Interval Events: c/o epigastric pain, sitll on 100% nrm Allergies: Coded Allergies: No Known Allergies (Unverified , 10/07/16) Objective Last 24 Hour Vital Signs Date Time Temp Pulse Resp B/P Pulse Ox O2 Delivery O2 Flow Rate FiO2 10/10/16 08:31 96 131/81 10/10/16 08:01 96 10/10/16 08:00 97.4 79 24 131/81 98 Non-Rebreather 97 10/10/16 06:00 118/80 10/10/16 04:00 98 10/10/16 04:00 98.1 83 22 178/92 Non-Rebreather 10/10/16 00:00 107 10/10/16 00:00 98.4 107 20 134/84 96 Non-Rebreather 100 10/09/16 20:00 98.1 94 21 121/82 90 Non-Rebreather 10/09/16 20:00 94 10/09/16 19:30 Non-Rebreather 15.0 100 10/09/16 19:30 93 Non-Rebreather 15.0 100 10/09/16 19:15 96.4 10/09/16 17:09 96.4 10/09/16 16:00 96.4 97 24 133/65 96 Non-Rebreather 100 10/09/16 16:00 96 10/09/16 12:00 97.5 91 21 119/78 97 Non-Rebreather 100 10/09/16 12:00 93 Intake and Output 10/09/16 10/10/16 19:00 07:00 Intake Total 260 ml Output Total 400 ml 1100 ml Balance -400 ml -840 ml Intake Oral 260 ml Output Urine Total 400 ml 1100 ml Objective General Appearance: WD/WN, no acute distress HEENT: normocephalic, anicteric Respiratory/Chest: chest wall non-tender, decreased breath sounds, positive rhonchi Cardiovascular: normal peripheral pulses, normal rate Abdomen: normal bowel sounds, soft, non tender Genitourinary: normal external genitalia Extremities: no cyanosis Skin: no rash 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 Lymphatic: no neck adenopathy Microbiology Date/Time Source Procedure Growth Status 10/08/16 12:00 Sputum Induced Gram Stain - Final Resulted 10/08/16 12:00 Sputum Culture - Preliminary Gram Negative Bacillus 1 Resulted Laboratory Tests 10/10/16 01:10: Sodium Level 141, Potassium Level 3.9, Chloride Level 96L, Carbon Dioxide Level 25, Anion Gap 20H, Blood Urea Nitrogen 25H, Creatinine 0.9, Estimat Glomerular Filtration Rate > 60, Glucose Level 105, Calcium Level 9.7, Random Vancomycin Level 9.6 Current Medications Medications (Trade) Dose Ordered Sig/Van Route PRN Reason Start Time Stop Time Status Last Admin Dose Admin Acetaminophen (Tylenol) 650 mg Q4H PRN ORAL T>100.5 10/07/16 07:00 11/06/16 06:59 Albuterol/ Ipratropium (DuoNeb 0.5-3(2.5)mg/3ml) 3 ml Q4H PRN HHN Shortness of Breath 10/07/16 07:00 10/12/16 06:59 Amlodipine Besylate (Norvasc) 5 mg DAILY ORAL 10/07/16 09:00 11/06/16 08:59 10/10/16 08:31 Aripiprazole (Abilify) 30 mg BEDTIME ORAL 10/07/16 21:00 11/06/16 20:59 10/09/16 21:41 Dextrose (Dextrose 50%) STAT PRN IV Hypoglycemia 10/07/16 07:00 11/06/16 06:59 Gabapentin (Neurontin) 300 mg BID ORAL 10/07/16 09:00 11/06/16 08:59 10/10/16 08:32 Heparin Sodium (Porcine) (Heparin 5000 units/ml) 5,000 units EVERY 12 HOURS SUBQ 10/07/16 09:00 11/06/16 08:59 10/10/16 08:33 Insulin Aspart (NovoLOG) BEFORE MEALS AND HS SUBQ 10/07/16 11:30 11/06/16 11:29 10/09/16 21:57 Ondansetron HCl (Zofran) 4 mg Q6H PRN IVP Nausea & Vomiting 10/07/16 07:00 11/06/16 06:59 10/10/16 08:33 Piperacillin Sod/ Tazobactam Sod 3.375 gm/Sodium Chloride 110 ml @ 27.5 mls/hr Q8H IVPB 10/08/16 02:00 10/15/16 01:59 10/10/16 09:47 Polyethylene Glycol (Miralax) 17 gm DAILYPRN PRN ORAL Constipation 10/07/16 07:00 11/06/16 06:59 Tamsulosin HCl (Flomax) 0.4 mg DAILY ORAL 10/07/16 09:00 11/06/16 08:59 10/10/16 08:33 Temazepam (Restoril) 15 mg HSPRN PRN ORAL Insomnia 10/07/16 21:00 10/14/16 20:59 Trazodone HCl (Desyrel) 150 mg BEDTIME ORAL 10/07/16 21:00 11/06/16 20:59 10/09/16 21:40 Vancomycin HCl 1 ea 1 ea DAILY PRN MISC Per rx protocol 10/07/16 11:30 11/06/16 11:29 Vancomycin HCl/ Dextrose (Vancomycin/D5W) 275 ml @ 183.708 mls/hr Q12HR@0200,1400 IVPB 10/09/16 02:00 10/14/16 01:59 10/10/16 01:34 ANDRESSA CRAIG Oct 10, 2016 11:22
--- NOTE | 2016-10-10 14:03 | Cardiology Report ---
APPROVED REPORT EKG Measurement Heart [id number] Normal sinus rhythm Possible Left atrial enlargement Inferior infarct, age undetermined Abnormal ECG
--- NOTE | 2016-10-10 14:34 | Cardiology Report ---
APPROVED REPORT EXAM: Two-dimensional and M-mode echocardiogram with Doppler and color Doppler. INDICATION Left Ventricular Function M-Mode DIMENSIONS IVSd0.7 (0.7-1.1cm)Left Atrium (MM)3.4 (1.6-4.0cm) LVDd5.0 (3.5-5.6cm)Aortic Root2.8 (2.0-3.7cm) PWd0.6 (0.7-1.1cm)Aortic Cusp Exc.2.0 (1.5-2.0cm) LVDs3.8 (2.5-4.0cm) PWs0.9 cm Normal left ventricular chamber size, systolic function and wall motion to extent visualized. Left ventricular ejection fraction estimated to be 55 %. No evidence of ventricular hypertrophy. No evidence of pericardial fat or effusion. All other cardiac chamber sizes are within normal limits. Mild focal aortic valve sclerosis with adequate cusp excursion. Mildly thickened mitral valve leaflets with normal excursion. Mild mitral annulus and aortic root calcification. Pulmonic valve not well visualized. Normal tricuspid valve structure. IVC dilated at 2.5 cm without physiologic collapse, estimated RAP is 20 mmHg. A color flow and spectral Doppler study was performed and revealed: No aortic regurgitation. No mitral regurgitation. Mitral diastolic velocities suggest reduced left ventricular relaxation (Grade I). Trace tricuspid regurgitation. Tricuspid systolic velocities suggests peak right ventricular systolic pressure of 21 mmHg. No pulmonic regurgitation present.
[2016-10-10] MEDS: Sucralfate 1gm tab ORAL SCH ×3 (14:54→22:00)
[2016-10-10] MEDS: TraZODone 100mg tab ORAL SCH (20:51)
[2016-10-10] MEDS: ARIPiprazole 10mg tab ORAL SCH (20:56)
[2016-10-11] VITALS: BP_SYST 126; BP_SYST 136; BP_DIAS 80
[2016-10-11] MEDS: Vancomycin 1250mg in D5W 275ml IVPB SCH ×2 (01:49→14:06)
[2016-10-11] MEDS: Piperacillin/Tazobactam 3.375 GM in NS 110 ML IVPB SCH ×3 (03:20→18:45)
[2016-10-11 04:00] VITALS: BP 126/79
[2016-10-11 04:50] LABS: BASOPHILS % (AUTO) 1.1 % (0.0-2.0); EOSINOPHILS % (AUTO) 5.8 % (0.0-3.0); LYMPHOCYTES % (AUTO) 22.1 % (20.0-45.0); MEAN CORPUSCULAR HEMOGLOBIN 28.3 PG (27.0-31.0); MEAN CORPUSCULAR HGB CONC 33.4 G/DL (32.0-36.0); MEAN CORPUSCULAR VOLUME 85 FL (80-99); MEAN PLATELET VOLUME 6.7 FL (6.5-10.1); MONOCYTES % (AUTO) 3.6 % (1.0-10.0); NEUTROPHILS % (AUTO) 67.4 % (45.0-75.0); PLATELET COUNT 334 K/UL (150-450); RED BLOOD COUNT 4.15 M/UL (4.70-6.10); RED CELL DISTRIBUTION WIDTH 12.9 % (11.6-14.8); WHITE BLOOD COUNT 9.1 K/UL (4.8-10.8)
[2016-10-11 05:08] LABS: ANION GAP 15 (5-15); CALCIUM 9.1 mg/dL (8.6-10.2); CARBON DIOXIDE 26 mEQ/L (20-30); CHLORIDE 96 mEQ/L (98-107); CREATININE 0.9 mg/dL (0.7-1.2); GLOMERULAR FILTRATION RATE > 60 mL/min (>60); HEMOLYSIS 4; POTASSIUM 3.5 mEQ/L (3.4-4.9); SODIUM 137 mEQ/L (135-145)
[2016-10-11] MEDS: NovoLOG Insulin Flexpen SUBQ SCH ×4 (06:02→20:56)
[2016-10-11 07:46] VITALS: BP 127/80
[2016-10-11] MEDS: Tamsulosin 0.4mg cap ORAL SCH (08:42)
[2016-10-11] MEDS: Heparin 5000 units/ml inj SUBQ SCH ×2 (08:44→20:36)
[2016-10-11] MEDS: Sucralfate 1gm tab ORAL SCH ×4 (08:44→20:35)
[2016-10-11 09:27] LABS: CORTISOL LC 13.2 ug/dL (.)
[2016-10-11 12:00] VITALS: BP 125/80
--- NOTE | 2016-10-11 12:13 | Diagnostic Imaging Report ---
APPROVED REPORT CPT Code: 87289 Present Symptoms Shortness of breath BILATERAL: Imaging reveals a patent deep venous system bilaterally. There is no evidence of thrombus within the femoral, popliteal or tibial segments. The greater saphenous veins are also within normal limits. Doppler indicates normal spontaneous flow within these segments.
--- NOTE | 2016-10-11 12:47 | Consultation ---
Consult Note Consult Note ID Dic # [id number] DEBORAH PEARSON M.D. Oct 11, 2016 12:47
--- NOTE | 2016-10-11 14:40 | Pulmonology Progress Note ---
Assessment/Plan Problems: (1) Respiratory failure with hypoxia (2) Multiple nodules of lung (3) Hyponatremia (4) Anemia in chronic kidney disease (CKD) (5) COPD with acute exacerbation (6) Nicotine addiction Assessment/Plan clinically continues to improve continue antibiotics respiratory treatment f/u electrolytes check sputum add carafate po for epigastric pain PPD was negative sputum has GNR. ID consult appreciated Subjective ROS Limited/Unobtainable: No Interval Events: on Nasal cannula now Allergies: Coded Allergies: No Known Allergies (Unverified , 10/07/16) Objective Last 24 Hour Vital Signs Date Time Temp Pulse Resp B/P Pulse Ox O2 Delivery O2 Flow Rate FiO2 10/11/16 12:00 95.4 72 20 125/80 94 Nasal Cannula 5.0 10/11/16 12:00 85 10/11/16 08:44 89 127/80 10/11/16 08:00 89 10/11/16 07:46 86 19 127/80 94 10/11/16 07:45 72 20 Nasal Cannula 5.0 97 10/11/16 07:45 92 Nasal Cannula 5.0 97 10/11/16 07:45 Nasal Cannula 5.0 97 10/11/16 04:00 72 10/11/16 04:00 97.0 77 20 126/79 90 Nasal Cannula 5.0 10/11/16 00:00 83 10/11/16 00:00 97.0 92 22 136/80 98 Nasal Cannula 5.0 97 10/10/16 21:12 Nasal Cannula 5.0 10/10/16 21:12 95 Nasal Cannula 5.0 10/10/16 21:11 83 18 Nasal Cannula 5.0 10/10/16 20:00 98.1 83 20 133/77 98 Nasal Cannula 5.0 10/10/16 20:00 87 10/10/16 16:00 90 10/10/16 16:00 97.7 88 20 105/71 Nasal Cannula 5.0 86 Intake and Output 10/10/16 10/11/16 19:00 07:00 Intake Total 743 ml 956.0 ml Balance 743 ml 956.0 ml Intake Oral 450 ml 480 ml IV Total 293 ml 476.0 ml # Voids 4 7 # Bowel Movements 1 Objective General Appearance: WD/WN, no acute distress HEENT: normocephalic, anicteric Respiratory/Chest: chest wall non-tender, decreased breath sounds, positive rhonchi Cardiovascular: normal peripheral pulses, normal rate Abdomen: normal bowel sounds, soft, non tender Genitourinary: normal external genitalia Extremities: no cyanosis Skin: no rash 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/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 Lymphatic: no neck adenopathy Laboratory Tests 10/11/16 03:45: White Blood Count 9.1, Red Blood Count 4.15L, Hemoglobin 11.7L, Hematocrit 35.1L , Mean Corpuscular Volume 85, Mean Corpuscular Hemoglobin 28.3, Mean Corpuscular Hemoglobin Concent 33.4, Red Cell Distribution Width 12.9, Platelet Count 334, Mean Platelet Volume 6.7, Neutrophils (%) (Auto) 67.4, Lymphocytes (% ) (Auto) 22.1, Monocytes (%) (Auto) 3.6, Eosinophils (%) (Auto) 5.8H, Basophils (%) (Auto) 1.1, Sodium Level 137, Potassium Level 3.5, Chloride Level 96L, Carbon Dioxide Level 26, Anion Gap 15, Blood Urea Nitrogen 20, Creatinine 0.9, Estimat Glomerular Filtration Rate > 60, Glucose Level 191H, Calcium Level 9.1 Current Medications Medications (Trade) Dose Ordered Sig/Van Route PRN Reason Start Time Stop Time Status Last Admin Dose Admin Acetaminophen (Tylenol) 650 mg Q4H PRN ORAL T>100.5 10/07/16 07:00 11/06/16 06:59 10/11/16 08:42 Albuterol/ Ipratropium (DuoNeb 0.5-3(2.5)mg/3ml) 3 ml Q4H PRN HHN Shortness of Breath 10/07/16 07:00 10/12/16 06:59 Amlodipine Besylate (Norvasc) 5 mg DAILY ORAL 10/07/16 09:00 11/06/16 08:59 10/11/16 08:44 Aripiprazole (Abilify) 30 mg BEDTIME ORAL 10/07/16 21:00 11/06/16 20:59 10/10/16 20:56 Dextrose (Dextrose 50%) STAT PRN IV Hypoglycemia 10/07/16 07:00 11/06/16 06:59 Gabapentin (Neurontin) 300 mg BID ORAL 10/07/16 09:00 11/06/16 08:59 10/11/16 08:43 Heparin Sodium (Porcine) (Heparin 5000 units/ml) 5,000 units EVERY 12 HOURS SUBQ 10/07/16 09:00 11/06/16 08:59 10/11/16 08:44 Insulin Aspart (NovoLOG) BEFORE MEALS AND HS SUBQ 10/07/16 11:30 11/06/16 11:29 10/10/16 22:02 Ondansetron HCl (Zofran) 4 mg Q6H PRN IVP Nausea & Vomiting 10/07/16 07:00 11/06/16 06:59 10/10/16 08:33 Piperacillin Sod/ Tazobactam Sod/ Sodium Chloride (Zosyn/Sodium Chloride) 110 ml @ 27.5 mls/hr Q8H IVPB 10/08/16 02:00 10/15/16 01:59 10/11/16 10:29 Polyethylene Glycol (Miralax) 17 gm DAILYPRN PRN ORAL Constipation 10/07/16 07:00 11/06/16 06:59 Sucralfate 1 gm 1 gm FOUR TIMES A DAY ORAL 10/10/16 13:00 11/09/16 12:59 10/11/16 14:04 Tamsulosin HCl (Flomax) 0.4 mg DAILY ORAL 10/07/16 09:00 11/06/16 08:59 10/11/16 08:42 Temazepam (Restoril) 15 mg HSPRN PRN ORAL Insomnia 10/07/16 21:00 10/14/16 20:59 10/10/16 21:07 Trazodone HCl (Desyrel) 150 mg BEDTIME ORAL 10/07/16 21:00 11/06/16 20:59 10/10/16 20:51 Vancomycin HCl 1 ea 1 ea DAILY PRN MISC Per rx protocol 10/07/16 11:30 11/06/16 11:29 Vancomycin HCl/ Dextrose (Vancomycin/D5W) 275 ml @ 183.708 mls/hr Q12HR@0200,1400 IVPB 10/11/16 02:00 10/16/16 01:59 10/11/16 14:06 ANDRESSA CRAIG Oct 11, 2016 14:40
[2016-10-11] MEDS ORDERED: Tubing IV Secondary IV ONE (15:45)
[2016-10-11] MEDS ORDERED: NS 275ml ONE (15:45)
--- NOTE | 2016-10-11 15:50 | Internal Med Progress Note ---
Subjective Physician Name Justin Musa Attending Physician Monty Irwin MD Current Medications Medications (Trade) Dose Ordered Sig/Van Route PRN Reason Start Time Stop Time Status Last Admin Dose Admin Acetaminophen (Tylenol) 650 mg Q4H PRN ORAL T>100.5 10/07/16 07:00 11/06/16 06:59 10/11/16 08:42 Albuterol/ Ipratropium (DuoNeb 0.5-3(2.5)mg/3ml) 3 ml Q4H PRN HHN Shortness of Breath 10/07/16 07:00 10/12/16 06:59 Amlodipine Besylate (Norvasc) 5 mg DAILY ORAL 10/07/16 09:00 11/06/16 08:59 10/11/16 08:44 Aripiprazole (Abilify) 30 mg BEDTIME ORAL 10/07/16 21:00 11/06/16 20:59 10/10/16 20:56 Dextrose (Dextrose 50%) STAT PRN IV Hypoglycemia 10/07/16 07:00 11/06/16 06:59 Gabapentin (Neurontin) 300 mg BID ORAL 10/07/16 09:00 11/06/16 08:59 10/11/16 08:43 Heparin Sodium (Porcine) (Heparin 5000 units/ml) 5,000 units EVERY 12 HOURS SUBQ 10/07/16 09:00 11/06/16 08:59 10/11/16 08:44 Insulin Aspart (NovoLOG) BEFORE MEALS AND HS SUBQ 10/07/16 11:30 11/06/16 11:29 10/10/16 22:02 Ondansetron HCl (Zofran) 4 mg Q6H PRN IVP Nausea & Vomiting 10/07/16 07:00 11/06/16 06:59 10/10/16 08:33 Piperacillin Sod/ Tazobactam Sod/ Sodium Chloride (Zosyn/Sodium Chloride) 110 ml @ 27.5 mls/hr Q8H IVPB 10/08/16 02:00 10/15/16 01:59 10/11/16 10:29 Polyethylene Glycol (Miralax) 17 gm DAILYPRN PRN ORAL Constipation 10/07/16 07:00 11/06/16 06:59 Sucralfate 1 gm 1 gm FOUR TIMES A DAY ORAL 10/10/16 13:00 11/09/16 12:59 10/11/16 14:04 Tamsulosin HCl (Flomax) 0.4 mg DAILY ORAL 10/07/16 09:00 11/06/16 08:59 10/11/16 08:42 Temazepam (Restoril) 15 mg HSPRN PRN ORAL Insomnia 10/07/16 21:00 10/14/16 20:59 10/10/16 21:07 Trazodone HCl (Desyrel) 150 mg BEDTIME ORAL 10/07/16 21:00 11/06/16 20:59 10/10/16 20:51 Vancomycin HCl 1 ea 1 ea DAILY PRN MISC Per rx protocol 10/07/16 11:30 11/06/16 11:29 Vancomycin HCl/ Dextrose (Vancomycin/D5W) 275 ml @ 183.708 mls/hr Q12HR@0200,1400 IVPB 10/11/16 02:00 10/16/16 01:59 10/11/16 14:06 Allergies: Coded Allergies: No Known Allergies (Unverified , 10/07/16) ROS Limited/Unobtainable: No Constitutional: Reports: no symptoms HEENT: Reports: no symptoms Cardiovascular: Reports: no symptoms Respiratory: Reports: shortness of breath Gastrointestinal/Abdominal: Reports: no symptoms Genitourinary: Reports: no symptoms Neurologic/Psychiatric: Reports: no symptoms Subjective 51 YO M admitted with respiratory distress, now pneumonia. KAUSHAL. Currently tolerating nasal canula. Cover for Int Lisandra Irwin. Objective Last Vital Signs Date Time Temp Pulse Resp B/P Pulse Ox O2 Delivery O2 Flow Rate FiO2 10/11/16 12:00 95.4 72 20 125/80 94 Nasal Cannula 5.0 10/11/16 07:45 97 General Appearance: WD/WN, no apparent distress, alert EENT: PERRL/EOMI, normal ENT inspection, TMs normal Neck: non-tender, normal alignment, supple Cardiovascular: normal peripheral pulses, normal rate, regular rhythm, no gallop/murmur, no JVD Respiratory/Chest: respiratory distress, crackles/rales, rhonchi - bilaterally , expiratory wheezing Abdomen: normal bowel sounds, non tender, soft, no organomegaly, no mass Extremities: normal range of motion 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, no motor/sensory deficits Skin: normal pigmentation, warm/dry Laboratory Tests Test 10/11/16 03:45 White Blood Count 9.1 K/UL (4.8-10.8) Red Blood Count 4.15 M/UL (4.70-6.10) L Hemoglobin 11.7 G/DL (14.2-18.0) L Hematocrit 35.1 % (42.0-52.0) L Mean Corpuscular Volume 85 FL (80-99) Mean Corpuscular Hemoglobin 28.3 PG (27.0-31.0) Mean Corpuscular Hemoglobin Concent 33.4 G/DL (32.0-36.0) Red Cell Distribution Width 12.9 % (11.6-14.8) Platelet Count 334 K/UL (150-450) Mean Platelet Volume 6.7 FL (6.5-10.1) Neutrophils (%) (Auto) 67.4 % (45.0-75.0) Lymphocytes (%) (Auto) 22.1 % (20.0-45.0) Monocytes (%) (Auto) 3.6 % (1.0-10.0) Eosinophils (%) (Auto) 5.8 % (0.0-3.0) H Basophils (%) (Auto) 1.1 % (0.0-2.0) Sodium Level 137 mEQ/L (135-145) Potassium Level 3.5 mEQ/L (3.4-4.9) Chloride Level 96 mEQ/L (98-107) L Carbon Dioxide Level 26 mEQ/L (20-30) Anion Gap 15 (5-15) Blood Urea Nitrogen 20 mg/dL (7-23) Creatinine 0.9 mg/dL (0.7-1.2) Estimat Glomerular Filtration Rate > 60 mL/min (>60) Glucose Level 191 mg/dL (74-106) H Calcium Level 9.1 mg/dL (8.6-10.2) Intake and Output 10/10/16 10/11/16 19:00 07:00 Intake Total 743 ml 956.0 ml Balance 743 ml 956.0 ml Intake Oral 450 ml 480 ml IV Total 293 ml 476.0 ml # Voids 4 7 # Bowel Movements 1 Objective Assessment/Plan Problem List: (1) Renal failure (2) Respiratory failure with hypoxia Assessment & Plan: See pulmonary note. Tolerating nasal canula. (3) COPD with acute exacerbation (4) Pneumonia Assessment & Plan: Bilateral. See ID and pulmonary note. Cont vanco and zosyn. PPD neg. Await sputum culture results. (5) Hypertension Assessment & Plan: Cont amlodipine. (6) Diabetes mellitus Assessment & Plan: Cont novolog sliding scale. (7) Hypercholesteremia (8) Anemia (9) PTSD (post-traumatic stress disorder) Status: progressing JUSTIN MUSA Oct 11, 2016 15:50
[2016-10-11 16:00] VITALS: BP 125/75
[2016-10-11 20:00] VITALS: BP 120/82
[2016-10-11] MEDS: ARIPiprazole 10mg tab ORAL SCH (20:34)
[2016-10-11] MEDS: TraZODone 100mg tab ORAL SCH (20:35)
--- NOTE | 2016-10-11 21:48 | Consultation ---
DATE OF CONSULTATION: INFECTIOUS DISEASE CONSULTATION CONSULTING PHYSICIAN: Fransisco Hong M.D. REFERRING PHYSICIAN: 1. Monty Irwin M.D. 2. Gopal Brito M.D. REASON FOR CONSULTATION: Evaluation of the patient for pneumonia, COPD exacerbation, and antibiotic management. HISTORY OF PRESENT ILLNESS: The patient is a 51-year-old male with multiple medical problems, who was admitted to this medical center due to shortness of breath. The patient has been started on IV antibiotics for sepsis. The patient 18,000 needing hospitalization. An Infectious Disease consultation has been requested for further evaluation of the patient and antibiotic management. PAST MEDICAL HISTORY: 1. COPD. 2. Ex-smoker. 3. Diabetes. 4. Hypertension. 5. History of psychiatric disorder. 6. BPH. MEDICATIONS: IV vancomycin and Zosyn. ALLERGIES: No known drug allergies. SOCIAL HISTORY: Lives in an apartment. FAMILY HISTORY: Noncontributory. REVIEW OF SYSTEMS: HEENT: No recent change in vision or hearing. Pulmonary: As mentioned above. Cardiovascular: No chest pain or palpitation. Gastrointestinal: No nausea or vomiting. Genitourinary: No dysuria. PHYSICAL EXAMINATION: VITAL SIGNS: Temperature 97 degrees, blood pressure 126/79, pulse 86, and respiratory rate 18. HEENT: Mild pale conjunctivae. No icterus. NECK: No lymphadenopathy. CHEST: Coarse breathing sounds. HEART: S1 and S2. ABDOMEN: Soft. EXTREMITIES: No cyanosis at this time. NEUROLOGIC: Awake. LABORATORY DATA: WBC 9.1, hemoglobin 11.7, and platelets 334,000. BUN 20 and creatinine 0.5. AST 38, ALT 90, and alkaline phosphatase 151. Sputum culture is growing Serratia, gram negative and Staphylococcus. ASSESSMENT: The patient is a 51-year-old male with multiple medical problems, who has been admitted to this medical center due to acute cough. The patient has grown multiple organisms from sputum that would benefit from broad-spectrum antibiotics until we get further information from the cultures. Chest x-ray had shown bilateral disease. PLAN: 1. We will continue the patient on IV vancomycin and Zosyn. 2. Monitor CBC. 3. Monitor BMP. 4. Monitor final cultures. 5. Monitor chest x-ray. 6. Based on the patient's clinical course and laboratories, we will do further recommendation. Thank you Dr. Brito and Dr. Irwin for allowing me to participate in the care of this patient. I will follow the patient with you during this hospitalization. Fransisco Hong M.D. DR: RUDDY JOB#: [id number] CC:
[2016-10-12 00:45] VITALS: BP 131/74
[2016-10-12] MEDS: Vancomycin 1250mg in D5W 275ml IVPB SCH ×2 (01:19→14:24)
[2016-10-12] MEDS: Piperacillin/Tazobactam 3.375 GM in NS 110 ML IVPB SCH ×3 (03:28→18:52)
[2016-10-12 04:17] VITALS: BP 127/64
[2016-10-12] MEDS: NovoLOG Insulin Flexpen SUBQ SCH ×4 (05:51→21:52)
[2016-10-12 06:04] LABS: BASOPHILS % (AUTO) 1.9 % (0.0-2.0); EOSINOPHILS % (AUTO) 5.7 % (0.0-3.0); LYMPHOCYTES % (AUTO) 21.2 % (20.0-45.0); MEAN CORPUSCULAR HEMOGLOBIN 28.6 PG (27.0-31.0); MEAN CORPUSCULAR HGB CONC 32.8 G/DL (32.0-36.0); MEAN CORPUSCULAR VOLUME 87 FL (80-99); MEAN PLATELET VOLUME 4.8 FL (6.5-10.1); MONOCYTES % (AUTO) 3.5 % (1.0-10.0); NEUTROPHILS % (AUTO) 67.7 % (45.0-75.0); PLATELET COUNT 365 K/UL (150-450); RED BLOOD COUNT 2.85 M/UL (4.70-6.10); RED CELL DISTRIBUTION WIDTH 13.2 % (11.6-14.8); WHITE BLOOD COUNT 10.1 K/UL (4.8-10.8)
[2016-10-12 06:22] LABS: ALANINE AMINOTRANSFERASE 16 U/L (3-41); ALBUMIN/GLOBULIN RATIO 0.9 (1.0-2.7); ANION GAP 22 (5-15); ASPARTATE AMINO TRANSFERASE 27 U/L (5-40); CALCIUM 9.3 mg/dL (8.6-10.2); CARBON DIOXIDE 20 mEQ/L (20-30); CHLORIDE 97 mEQ/L (98-107); GLOMERULAR FILTRATION RATE > 60 mL/min (>60); HEMOLYSIS 22; PHOSPHORUS 3.5 mg/dL (2.5-4.8); POTASSIUM 3.7 mEQ/L (3.4-4.9); SODIUM 139 mEQ/L (135-145)
[2016-10-12 07:03] LABS: CRP QUANT 12.5 mg/dL (< 0.5)
[2016-10-12 07:23] LABS: NIL (NEG) CONTROL SPOT COUNT 0 (0-9); PANEL A SPOT COUNT 0; PANEL B SPOT COUNT 0; POSITIVE CONTROL SPOT COUNT > 20; T SPOT TB NEGATIVE
[2016-10-12 08:00] VITALS: BP 132/77
[2016-10-12] MEDS: Sucralfate 1gm tab ORAL SCH ×4 (08:58→21:53)
[2016-10-12] MEDS: Tamsulosin 0.4mg cap ORAL SCH (08:59)
[2016-10-12] MEDS: Heparin 5000 units/ml inj SUBQ SCH ×2 (09:00→21:54)
[2016-10-12 10:19] LABS: CRYPTOCOCCAL ANTIGEN SERUM Negative (Negative)
--- NOTE | 2016-10-12 11:40 | Internal Med Progress Note ---
Subjective Date of Service: Oct 12, 2016 Physician Name Justin Musa Attending Physician Monty Irwin MD Current Medications Medications (Trade) Dose Ordered Sig/Van Route PRN Reason Start Time Stop Time Status Last Admin Dose Admin Acetaminophen (Tylenol) 650 mg Q4H PRN ORAL T>100.5 10/07/16 07:00 11/06/16 06:59 10/12/16 01:18 Amlodipine Besylate (Norvasc) 5 mg DAILY ORAL 10/07/16 09:00 11/06/16 08:59 10/12/16 08:59 Aripiprazole (Abilify) 30 mg BEDTIME ORAL 10/07/16 21:00 11/06/16 20:59 10/11/16 20:34 Dextrose (Dextrose 50%) STAT PRN IV Hypoglycemia 10/07/16 07:00 11/06/16 06:59 Gabapentin (Neurontin) 300 mg BID ORAL 10/07/16 09:00 11/06/16 08:59 10/12/16 08:59 Heparin Sodium (Porcine) (Heparin 5000 units/ml) 5,000 units EVERY 12 HOURS SUBQ 10/07/16 09:00 11/06/16 08:59 10/12/16 09:00 Insulin Aspart (NovoLOG) BEFORE MEALS AND HS SUBQ 10/07/16 11:30 11/06/16 11:29 10/10/16 22:02 Ondansetron HCl (Zofran) 4 mg Q6H PRN IVP Nausea & Vomiting 10/07/16 07:00 11/06/16 06:59 10/11/16 18:45 Piperacillin Sod/ Tazobactam Sod/ Sodium Chloride (Zosyn/Sodium Chloride) 110 ml @ 27.5 mls/hr Q8H IVPB 10/08/16 02:00 10/15/16 01:59 10/12/16 09:08 Polyethylene Glycol (Miralax) 17 gm DAILYPRN PRN ORAL Constipation 10/07/16 07:00 11/06/16 06:59 Sucralfate 1 gm 1 gm FOUR TIMES A DAY ORAL 10/10/16 13:00 11/09/16 12:59 10/12/16 08:58 Tamsulosin HCl (Flomax) 0.4 mg DAILY ORAL 10/07/16 09:00 11/06/16 08:59 10/12/16 08:59 Temazepam (Restoril) 15 mg HSPRN PRN ORAL Insomnia 10/07/16 21:00 10/14/16 20:59 10/10/16 21:07 Trazodone HCl (Desyrel) 150 mg BEDTIME ORAL 10/07/16 21:00 11/06/16 20:59 10/11/16 20:35 Vancomycin HCl 1 ea 1 ea DAILY PRN MISC Per rx protocol 10/07/16 11:30 11/06/16 11:29 Vancomycin HCl/ Dextrose (Vancomycin/D5W) 275 ml @ 183.708 mls/hr Q12HR@0200,1400 IVPB 10/11/16 02:00 10/16/16 01:59 10/12/16 01:19 Allergies: Coded Allergies: No Known Allergies (Unverified , 10/07/16) ROS Limited/Unobtainable: No Constitutional: Reports: no symptoms HEENT: Reports: no symptoms Cardiovascular: Reports: no symptoms Respiratory: Reports: shortness of breath Gastrointestinal/Abdominal: Reports: no symptoms Genitourinary: Reports: no symptoms Neurologic/Psychiatric: Reports: no symptoms Subjective 51 YO M admitted with respiratory distress, now pneumonia. KAUSHAL. Currently tolerating nasal canula. Cover for Int Med-Dr Irwin. Objective Last Vital Signs Date Time Temp Pulse Resp B/P Pulse Ox O2 Delivery O2 Flow Rate FiO2 10/12/16 08:59 74 132/77 10/12/16 08:00 97.0 20 99 Nasal Cannula 5.0 10/11/16 07:45 97 Laboratory Tests Test 10/12/16 04:00 10/12/16 04:40 10/12/16 07:55 White Blood Count 10.1 K/UL (4.8-10.8) Red Blood Count 2.85 M/UL (4.70-6.10) L Hemoglobin 8.2 G/DL (14.2-18.0) L Hematocrit 24.8 % (42.0-52.0) L Mean Corpuscular Volume 87 FL (80-99) Mean Corpuscular Hemoglobin 28.6 PG (27.0-31.0) Mean Corpuscular Hemoglobin Concent 32.8 G/DL (32.0-36.0) Red Cell Distribution Width 13.2 % (11.6-14.8) Platelet Count 365 K/UL (150-450) Mean Platelet Volume 4.8 FL (6.5-10.1) L Neutrophils (%) (Auto) 67.7 % (45.0-75.0) Lymphocytes (%) (Auto) 21.2 % (20.0-45.0) Monocytes (%) (Auto) 3.5 % (1.0-10.0) Eosinophils (%) (Auto) 5.7 % (0.0-3.0) H Basophils (%) (Auto) 1.9 % (0.0-2.0) Sodium Level 139 mEQ/L (135-145) Potassium Level 3.7 mEQ/L (3.4-4.9) Chloride Level 97 mEQ/L (98-107) L Carbon Dioxide Level 20 mEQ/L (20-30) Anion Gap 22 (5-15) H Blood Urea Nitrogen 18 mg/dL (7-23) Creatinine 1.0 mg/dL (0.7-1.2) Estimat Glomerular Filtration Rate > 60 mL/min (>60) Glucose Level 135 mg/dL (74-106) H Calcium Level 9.3 mg/dL (8.6-10.2) Phosphorus Level 3.5 mg/dL (2.5-4.8) Magnesium Level 2.0 mg/dL (1.7-2.5) Total Bilirubin 0.2 mg/dL (0.0-1.2) Aspartate Amino Transf (AST/SGOT) 27 U/L (5-40) Alanine Aminotransferase (ALT/SGPT) 16 U/L (3-41) Alkaline Phosphatase 92 U/L (40-129) C-Reactive Protein, Quantitative 12.5 mg/dL (< 0.5) H Total Protein 7.0 g/dL (6.6-8.7) Albumin 3.4 g/dL (3.5-5.2) L Globulin 3.6 g/dL Albumin/Globulin Ratio 0.9 (1.0-2.7) L Erythrocyte Sedimentation Rate 101 MM/HR (0-20) H Intake and Output 10/11/16 10/12/16 19:00 07:00 Intake Total 1125.000 ml 745.000 ml Balance 1125.000 ml 745.000 ml Intake Oral 740 ml 360 ml IV Total 385.000 ml 385.000 ml # Voids 4 # Bowel Movements 3 3 Objective General Appearance: WD/WN, no apparent distress, alert EENT: PERRL/EOMI, normal ENT inspection, TMs normal Neck: non-tender, normal alignment, supple Cardiovascular: normal peripheral pulses, normal rate, regular rhythm, no gallop/murmur, no JVD Respiratory/Chest: Nasal canula; respiratory distress, crackles/rales, rhonchi - bilaterally, expiratory wheezing Abdomen: normal bowel sounds, non tender, soft, no organomegaly, no mass Extremities: normal range of motion 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 Tolerating nasal canula. (3) COPD with acute exacerbation (4) Pneumonia Assessment & Plan: Bilateral. See ID and pulmonary note. Cont vanco and zosyn. PPD neg. Await sputum culture results. (5) Hypertension Assessment & Plan: Cont amlodipine. (6) Diabetes mellitus Assessment & Plan: Cont novolog sliding scale. (7) Hypercholesteremia (8) Anemia (9) PTSD (post-traumatic stress disorder) Status: unchanged JUSTIN MUSA Oct 12, 2016 11:40
[2016-10-12 12:00] VITALS: BP 116/64
--- NOTE | 2016-10-12 12:24 | Pulmonology Progress Note ---
Assessment/Plan Problems: (1) Respiratory failure with hypoxia (2) Multiple nodules of lung (3) Hyponatremia (4) Anemia in chronic kidney disease (CKD) (5) COPD with acute exacerbation (6) Nicotine addiction Assessment/Plan mrsa in sputum clinically continues to improve continue antibiotics respiratory treatment f/u electrolytes check sputum add carafate po for epigastric pain PPD was negative ID consult appreciated can go to med/surg Subjective Interval Events: on nasal cannula Constitutional: Reports: no symptoms HEENT: Repors: no symptoms Allergies: Coded Allergies: No Known Allergies (Unverified , 10/07/16) Objective Last 24 Hour Vital Signs Date Time Temp Pulse Resp B/P Pulse Ox O2 Delivery O2 Flow Rate FiO2 10/12/16 12:00 98.1 72 20 116/64 98 Nasal Cannula 5.0 10/12/16 08:59 74 132/77 10/12/16 08:00 97.0 74 20 132/77 99 Nasal Cannula 5.0 10/12/16 06:55 75 18 Nasal Cannula 5.0 10/12/16 06:55 95 Nasal Cannula 5.0 10/12/16 06:55 Nasal Cannula 5.0 10/12/16 04:17 99.1 83 20 127/64 98 Nasal Cannula 5.0 10/12/16 02:17 99.3 10/12/16 00:45 100.6 78 19 131/74 96 Nasal Cannula 5.0 10/11/16 20:00 98.8 65 18 120/82 96 Nasal Cannula 5.0 10/11/16 16:21 66 10/11/16 16:00 98.1 80 20 125/75 96 Nasal Cannula 5.0 Intake and Output 10/11/16 10/12/16 19:00 07:00 Intake Total 1125.000 ml 745.000 ml Balance 1125.000 ml 745.000 ml Intake Oral 740 ml 360 ml IV Total 385.000 ml 385.000 ml # Voids 4 # Bowel Movements 3 3 Objective General Appearance: WD/WN, no acute distress HEENT: normocephalic, anicteric Respiratory/Chest: chest wall non-tender, decreased breath sounds, positive rhonchi Cardiovascular: normal peripheral pulses, normal rate Abdomen: normal bowel sounds, soft, non tender Genitourinary: normal external genitalia Extremities: no cyanosis Skin: no rash 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 Lymphatic: no neck adenopathy Laboratory Tests 10/12/16 04:00: White Blood Count 10.1, Red Blood Count 2.85L, Hemoglobin 8.2L, Hematocrit 24.8L , Mean Corpuscular Volume 87, Mean Corpuscular Hemoglobin 28.6, Mean Corpuscular Hemoglobin Concent 32.8, Red Cell Distribution Width 13.2, Platelet Count 365, Mean Platelet Volume 4.8L, Neutrophils (%) (Auto) 67.7, Lymphocytes ( %) (Auto) 21.2, Monocytes (%) (Auto) 3.5, Eosinophils (%) (Auto) 5.7H, Basophils (%) (Auto) 1.9 10/12/16 04:40: Sodium Level 139, Potassium Level 3.7, Chloride Level 97L, Carbon Dioxide Level 20, Anion Gap 22H, Blood Urea Nitrogen 18, Creatinine 1.0, Estimat Glomerular Filtration Rate > 60, Glucose Level 135H, Calcium Level 9.3, Phosphorus Level 3.5, Magnesium Level 2.0, Total Bilirubin 0.2, Aspartate Amino Transf (AST/SGOT ) 27, Alanine Aminotransferase (ALT/SGPT) 16, Alkaline Phosphatase 92, C- Reactive Protein, Quantitative 12.5H, Total Protein 7.0, Albumin 3.4L, Globulin 3.6, Albumin/Globulin Ratio 0.9L 10/12/16 07:55: Erythrocyte Sedimentation Rate 101H Current Medications Medications (Trade) Dose Ordered Sig/Van Route PRN Reason Start Time Stop Time Status Last Admin Dose Admin Acetaminophen (Tylenol) 650 mg Q4H PRN ORAL T>100.5 10/07/16 07:00 11/06/16 06:59 10/12/16 01:18 Amlodipine Besylate (Norvasc) 5 mg DAILY ORAL 10/07/16 09:00 11/06/16 08:59 10/12/16 08:59 Aripiprazole (Abilify) 30 mg BEDTIME ORAL 10/07/16 21:00 11/06/16 20:59 10/11/16 20:34 Dextrose (Dextrose 50%) STAT PRN IV Hypoglycemia 10/07/16 07:00 11/06/16 06:59 Gabapentin (Neurontin) 300 mg BID ORAL 10/07/16 09:00 11/06/16 08:59 10/12/16 08:59 Heparin Sodium (Porcine) (Heparin 5000 units/ml) 5,000 units EVERY 12 HOURS SUBQ 10/07/16 09:00 11/06/16 08:59 10/12/16 09:00 Insulin Aspart (NovoLOG) BEFORE MEALS AND HS SUBQ 10/07/16 11:30 11/06/16 11:29 10/10/16 22:02 Ondansetron HCl (Zofran) 4 mg Q6H PRN IVP Nausea & Vomiting 10/07/16 07:00 11/06/16 06:59 10/11/16 18:45 Piperacillin Sod/ Tazobactam Sod/ Sodium Chloride (Zosyn/Sodium Chloride) 110 ml @ 27.5 mls/hr Q8H IVPB 10/08/16 02:00 10/15/16 01:59 10/12/16 09:08 Polyethylene Glycol (Miralax) 17 gm DAILYPRN PRN ORAL Constipation 10/07/16 07:00 11/06/16 06:59 Sucralfate 1 gm 1 gm FOUR TIMES A DAY ORAL 10/10/16 13:00 11/09/16 12:59 10/12/16 08:58 Tamsulosin HCl (Flomax) 0.4 mg DAILY ORAL 10/07/16 09:00 11/06/16 08:59 10/12/16 08:59 Temazepam (Restoril) 15 mg HSPRN PRN ORAL Insomnia 10/07/16 21:00 10/14/16 20:59 10/10/16 21:07 Trazodone HCl (Desyrel) 150 mg BEDTIME ORAL 10/07/16 21:00 11/06/16 20:59 10/11/16 20:35 Vancomycin HCl 1 ea 1 ea DAILY PRN MISC Per rx protocol 10/07/16 11:30 11/06/16 11:29 Vancomycin HCl/ Dextrose (Vancomycin/D5W) 275 ml @ 183.708 mls/hr Q12HR@0200,1400 IVPB 10/11/16 02:00 10/16/16 01:59 10/12/16 01:19 ANDRESSA CRAIG Oct 12, 2016 12:24
[2016-10-12 15:36] LABS: BASOPHILS % (AUTO) 0.7 % (0.0-2.0); LYMPHOCYTES % (AUTO) 17.7 % (20.0-45.0); MEAN CORPUSCULAR HEMOGLOBIN 28.2 PG (27.0-31.0); MEAN CORPUSCULAR HGB CONC 33.6 G/DL (32.0-36.0); MEAN CORPUSCULAR VOLUME 84 FL (80-99); MEAN PLATELET VOLUME 5.8 FL (6.5-10.1); MONOCYTES % (AUTO) 5.7 % (1.0-10.0); NEUTROPHILS % (AUTO) 71.8 % (45.0-75.0); PLATELET COUNT 397 K/UL (150-450); RED BLOOD COUNT 4.33 M/UL (4.70-6.10); RED CELL DISTRIBUTION WIDTH 12.5 % (11.6-14.8); WHITE BLOOD COUNT 9.3 K/UL (4.8-10.8)
[2016-10-12 16:00] VITALS: BP 129/75
[2016-10-12 20:00] VITALS: BP 125/78
--- NOTE | 2016-10-12 21:36 | Infectious Diseases Prog Note ---
Assessment/Plan Assessment/Plan A The patient is a 51-year-old male with Pneumonia, . Sputum culture is growing Serratia, gram negative and Staphylococcus. COPD exacerbation COPD. Ex-smoker. Diabetes. Hypertension. History of psychiatric disorder. BPH. . PLAN: continue the patient on IV vancomycin d# 5 / and Zosyn d# 5 / Monitor CBC. Monitor BMP. Monitor final cultures. Monitor chest x-ray. Subjective Constitutional: Denies: anorexia, chills, drenching sweats, fatigue, fever, no symptoms, other Allergies: Coded Allergies: No Known Allergies (Unverified , 10/07/16) Objective Vital Signs Last 24 Hour Vital Signs Date Time Temp Pulse Resp B/P Pulse Ox O2 Delivery O2 Flow Rate FiO2 10/12/16 20:00 98.0 81 18 125/78 97 5.0 10/12/16 19:03 81 18 Nasal Cannula 5.0 10/12/16 19:03 94 Nasal Cannula 5.0 10/12/16 19:03 Nasal Cannula 5.0 10/12/16 16:00 97.5 76 20 129/75 96 Nasal Cannula 5.0 10/12/16 12:00 98.1 72 20 116/64 98 Nasal Cannula 5.0 10/12/16 08:59 74 132/77 10/12/16 08:00 97.0 74 20 132/77 99 Nasal Cannula 5.0 10/12/16 06:55 75 18 Nasal Cannula 5.0 10/12/16 06:55 95 Nasal Cannula 5.0 10/12/16 06:55 Nasal Cannula 5.0 10/12/16 04:17 99.1 83 20 127/64 98 Nasal Cannula 5.0 10/12/16 02:17 99.3 10/12/16 00:45 100.6 78 19 131/74 96 Nasal Cannula 5.0 Height (Feet): 5 Height (Inches): 6.00 Weight (Pounds): 180 HEENT: atraumatic Respiratory/Chest: no respiratory distress Cardiovascular: regular rhythm Abdomen: non distended Microbiology Date/Time Source Procedure Growth Status 10/10/16 15:20 Sputum AFB Specimen Processing Tissue - Final Resulted 10/10/16 15:20 Sputum Acid Fast Bacilli Smear - Final Resulted 10/10/16 15:20 Sputum Acid Fast Bacilli Culture Pending Resulted 10/12/16 16:30 Stool Received Laboratory Tests Test 10/12/16 04:00 10/12/16 04:40 10/12/16 07:55 10/12/16 12:15 White Blood Count 10.1 K/UL (4.8-10.8) Red Blood Count 2.85 M/UL (4.70-6.10) L Hemoglobin 8.2 G/DL (14.2-18.0) L Hematocrit 24.8 % (42.0-52.0) L Mean Corpuscular Volume 87 FL (80-99) Mean Corpuscular Hemoglobin 28.6 PG (27.0-31.0) Mean Corpuscular Hemoglobin Concent 32.8 G/DL (32.0-36.0) Red Cell Distribution Width 13.2 % (11.6-14.8) Platelet Count 365 K/UL (150-450) Mean Platelet Volume 4.8 FL (6.5-10.1) L Neutrophils (%) (Auto) 67.7 % (45.0-75.0) Lymphocytes (%) (Auto) 21.2 % (20.0-45.0) Monocytes (%) (Auto) 3.5 % (1.0-10.0) Eosinophils (%) (Auto) 5.7 % (0.0-3.0) H Basophils (%) (Auto) 1.9 % (0.0-2.0) Sodium Level 139 mEQ/L (135-145) Potassium Level 3.7 mEQ/L (3.4-4.9) Chloride Level 97 mEQ/L (98-107) L Carbon Dioxide Level 20 mEQ/L (20-30) Anion Gap 22 (5-15) H Blood Urea Nitrogen 18 mg/dL (7-23) Creatinine 1.0 mg/dL (0.7-1.2) Estimat Glomerular Filtration Rate > 60 mL/min (>60) Glucose Level 135 mg/dL (74-106) H Calcium Level 9.3 mg/dL (8.6-10.2) Phosphorus Level 3.5 mg/dL (2.5-4.8) Magnesium Level 2.0 mg/dL (1.7-2.5) Total Bilirubin 0.2 mg/dL (0.0-1.2) Aspartate Amino Transf (AST/SGOT) 27 U/L (5-40) Alanine Aminotransferase (ALT/SGPT) 16 U/L (3-41) Alkaline Phosphatase 92 U/L (40-129) C-Reactive Protein, Quantitative 12.5 mg/dL (< 0.5) H Total Protein 7.0 g/dL (6.6-8.7) Albumin 3.4 g/dL (3.5-5.2) L Globulin 3.6 g/dL Albumin/Globulin Ratio 0.9 (1.0-2.7) L Erythrocyte Sedimentation Rate 101 MM/HR (0-20) H M. tuberculosis Complex DNA (PCR) Pending Test 10/12/16 15:15 White Blood Count 9.3 K/UL (4.8-10.8) Red Blood Count 4.33 M/UL (4.70-6.10) L Hemoglobin 12.2 G/DL (14.2-18.0) #L Hematocrit 36.3 % (42.0-52.0) #L Mean Corpuscular Volume 84 FL (80-99) Mean Corpuscular Hemoglobin 28.2 PG (27.0-31.0) Mean Corpuscular Hemoglobin Concent 33.6 G/DL (32.0-36.0) Red Cell Distribution Width 12.5 % (11.6-14.8) Platelet Count 397 K/UL (150-450) Mean Platelet Volume 5.8 FL (6.5-10.1) L Neutrophils (%) (Auto) 71.8 % (45.0-75.0) Lymphocytes (%) (Auto) 17.7 % (20.0-45.0) L Monocytes (%) (Auto) 5.7 % (1.0-10.0) Eosinophils (%) (Auto) 4.0 % (0.0-3.0) H Basophils (%) (Auto) 0.7 % (0.0-2.0) Current Medications Medications (Trade) Dose Ordered Sig/Van Route PRN Reason Start Time Stop Time Status Last Admin Dose Admin Acetaminophen (Tylenol) 650 mg Q4H PRN ORAL T>100.5 10/07/16 07:00 11/06/16 06:59 10/12/16 16:59 Amlodipine Besylate (Norvasc) 5 mg DAILY ORAL 10/07/16 09:00 11/06/16 08:59 10/12/16 08:59 Aripiprazole (Abilify) 30 mg BEDTIME ORAL 10/12/16 21:00 11/11/16 20:59 Dextrose (Dextrose 50%) STAT PRN IV Hypoglycemia 10/07/16 07:00 11/06/16 06:59 Gabapentin (Neurontin) 300 mg BID ORAL 10/07/16 09:00 11/06/16 08:59 10/12/16 18:52 Heparin Sodium (Porcine) (Heparin 5000 units/ml) 5,000 units EVERY 12 HOURS SUBQ 10/07/16 09:00 11/06/16 08:59 10/12/16 09:00 Insulin Aspart (NovoLOG) BEFORE MEALS AND HS SUBQ 10/07/16 11:30 11/06/16 11:29 10/12/16 16:59 Ondansetron HCl (Zofran) 4 mg Q6H PRN IVP Nausea & Vomiting 10/07/16 07:00 11/06/16 06:59 10/11/16 18:45 Piperacillin Sod/ Tazobactam Sod/ Sodium Chloride (Zosyn/Sodium Chloride) 110 ml @ 27.5 mls/hr Q8H IVPB 10/08/16 02:00 10/15/16 01:59 10/12/16 18:52 Polyethylene Glycol (Miralax) 17 gm DAILYPRN PRN ORAL Constipation 10/07/16 07:00 11/06/16 06:59 Sucralfate 1 gm 1 gm FOUR TIMES A DAY ORAL 10/10/16 13:00 11/09/16 12:59 10/12/16 18:52 Tamsulosin HCl (Flomax) 0.4 mg DAILY ORAL 10/07/16 09:00 11/06/16 08:59 10/12/16 08:59 Temazepam (Restoril) 15 mg HSPRN PRN ORAL Insomnia 10/07/16 21:00 10/14/16 20:59 10/10/16 21:07 Trazodone HCl (Desyrel) 150 mg BEDTIME ORAL 10/07/16 21:00 11/06/16 20:59 10/11/16 20:35 Vancomycin HCl 1 ea 1 ea DAILY PRN MISC Per rx protocol 10/07/16 11:30 11/06/16 11:29 Vancomycin HCl/ Dextrose (Vancomycin/D5W) 275 ml @ 183.708 mls/hr Q12HR@0200,1400 IVPB 10/11/16 02:00 10/16/16 01:59 10/12/16 14:24 DEBORAH PERASON M.D. Oct 12, 2016 21:36
[2016-10-12] MEDS: TraZODone 100mg tab ORAL SCH (21:54)
[2016-10-13] VITALS: BP 128/74
[2016-10-13] MEDS: Vancomycin 1.25 GM in D5W 275 ML IVPB SCH ×2 (01:43→13:26)
[2016-10-13] MEDS: Piperacillin/Tazobactam 3.375 GM in NS 110 ML IVPB SCH ×3 (02:00→18:42)
[2016-10-13 04:00] VITALS: BP 127/82
[2016-10-13] MEDS: NovoLOG Insulin Flexpen SUBQ SCH ×4 (06:30→21:51)
[2016-10-13] MEDS ORDERED: Miralax 17gm pkt ORAL PRN (07:00)
[2016-10-13 07:15] LABS: BASOPHILS % (AUTO) 0.8 % (0.0-2.0); EOSINOPHILS % (AUTO) 3.3 % (0.0-3.0); LYMPHOCYTES % (AUTO) 17.4 % (20.0-45.0); MEAN CORPUSCULAR HEMOGLOBIN 28.8 PG (27.0-31.0); MEAN CORPUSCULAR HGB CONC 34.7 G/DL (32.0-36.0); MEAN CORPUSCULAR VOLUME 83 FL (80-99); MEAN PLATELET VOLUME 5.7 FL (6.5-10.1); MONOCYTES % (AUTO) 8.2 % (1.0-10.0); NEUTROPHILS % (AUTO) 70.3 % (45.0-75.0); PLATELET COUNT 369 K/UL (150-450); RED BLOOD COUNT 4.02 M/UL (4.70-6.10); RED CELL DISTRIBUTION WIDTH 12.2 % (11.6-14.8); WHITE BLOOD COUNT 10.9 K/UL (4.8-10.8)
[2016-10-13 07:43] LABS: ALANINE AMINOTRANSFERASE 15 U/L (3-41); ANION GAP 18 (5-15); ASPARTATE AMINO TRANSFERASE 18 U/L (5-40); CALCIUM 9.3 mg/dL (8.6-10.2); CARBON DIOXIDE 23 mEQ/L (20-30); CHLORIDE 97 mEQ/L (98-107); CREATININE 0.8 mg/dL (0.7-1.2); GLOMERULAR FILTRATION RATE > 60 mL/min (>60); HEMOLYSIS 7; POTASSIUM 3.7 mEQ/L (3.4-4.9); SODIUM 138 mEQ/L (135-145); TOTAL PROTEIN 6.7 g/dL (6.6-8.7)
[2016-10-13 08:00] VITALS: BP 127/77
[2016-10-13] MEDS: Tamsulosin 0.4mg cap ORAL SCH (09:13)
[2016-10-13] MEDS: Sucralfate 1gm tab ORAL SCH ×4 (09:13→21:43)
[2016-10-13] MEDS: Heparin 5000 units/ml inj SUBQ SCH ×2 (09:20→21:49)
--- NOTE | 2016-10-13 10:26 | Infectious Diseases Prog Note ---
Assessment/Plan Assessment/Plan A The patient is a 51-year-old male with SP low grade fever Pneumonia, place in iso to RO TB Sputum culture is growing Serratia,and MRSA COPD exacerbation COPD. Ex-smoker. Diabetes. Hypertension. History of psychiatric disorder. BPH. . PLAN: continue the patient on IV vancomycin d# 6 / and Zosyn d# 6 / 7 Monitor CBC. Monitor BMP. Monitor final cultures. Monitor chest x-ray. sputum AFB x 3 :P Subjective Allergies: Coded Allergies: No Known Allergies (Unverified , 10/07/16) Subjective cough is improving Objective Vital Signs Last 24 Hour Vital Signs Date Time Temp Pulse Resp B/P Pulse Ox O2 Delivery O2 Flow Rate FiO2 10/13/16 09:13 75 127/82 10/13/16 08:00 97.2 78 20 127/77 95 Nasal Cannula 5.0 10/13/16 05:43 97.9 10/13/16 04:00 97.9 75 20 127/82 95 Nasal Cannula 2.0 10/13/16 00:00 98.1 77 22 128/74 95 Nasal Cannula 2.0 10/12/16 20:00 98.0 81 18 125/78 97 5.0 10/12/16 19:03 81 18 Nasal Cannula 5.0 10/12/16 19:03 94 Nasal Cannula 5.0 10/12/16 19:03 Nasal Cannula 5.0 10/12/16 16:00 97.5 76 20 129/75 96 Nasal Cannula 5.0 10/12/16 12:00 98.1 72 20 116/64 98 Nasal Cannula 5.0 Height (Feet): 5 Height (Inches): 6.00 Weight (Pounds): 180 HEENT: atraumatic Respiratory/Chest: normal breath sounds Cardiovascular: regular rhythm Abdomen: non distended Microbiology Date/Time Source Procedure Growth Status 10/10/16 15:20 Sputum AFB Specimen Processing Tissue - Final Resulted 10/10/16 15:20 Sputum Acid Fast Bacilli Smear - Final Resulted 10/10/16 15:20 Sputum Acid Fast Bacilli Culture Pending Resulted 10/12/16 16:30 Stool Received Laboratory Tests Test 10/12/16 12:15 10/12/16 15:15 10/13/16 06:30 M. tuberculosis Complex DNA (PCR) Pending White Blood Count 9.3 K/UL (4.8-10.8) 10.9 K/UL (4.8-10.8) H Red Blood Count 4.33 M/UL (4.70-6.10) L 4.02 M/UL (4.70-6.10) L Hemoglobin 12.2 G/DL (14.2-18.0) #L 11.6 G/DL (14.2-18.0) L Hematocrit 36.3 % (42.0-52.0) #L 33.3 % (42.0-52.0) L Mean Corpuscular Volume 84 FL (80-99) 83 FL (80-99) Mean Corpuscular Hemoglobin 28.2 PG (27.0-31.0) 28.8 PG (27.0-31.0) Mean Corpuscular Hemoglobin Concent 33.6 G/DL (32.0-36.0) 34.7 G/DL (32.0-36.0) Red Cell Distribution Width 12.5 % (11.6-14.8) 12.2 % (11.6-14.8) Platelet Count 397 K/UL (150-450) 369 K/UL (150-450) Mean Platelet Volume 5.8 FL (6.5-10.1) L 5.7 FL (6.5-10.1) L Neutrophils (%) (Auto) 71.8 % (45.0-75.0) 70.3 % (45.0-75.0) Lymphocytes (%) (Auto) 17.7 % (20.0-45.0) L 17.4 % (20.0-45.0) L Monocytes (%) (Auto) 5.7 % (1.0-10.0) 8.2 % (1.0-10.0) Eosinophils (%) (Auto) 4.0 % (0.0-3.0) H 3.3 % (0.0-3.0) H Basophils (%) (Auto) 0.7 % (0.0-2.0) 0.8 % (0.0-2.0) Sodium Level 138 mEQ/L (135-145) Potassium Level 3.7 mEQ/L (3.4-4.9) Chloride Level 97 mEQ/L (98-107) L Carbon Dioxide Level 23 mEQ/L (20-30) Anion Gap 18 (5-15) H Blood Urea Nitrogen 18 mg/dL (7-23) Creatinine 0.8 mg/dL (0.7-1.2) Estimat Glomerular Filtration Rate > 60 mL/min (>60) Glucose Level 100 mg/dL (74-106) Calcium Level 9.3 mg/dL (8.6-10.2) Total Bilirubin 0.3 mg/dL (0.0-1.2) Aspartate Amino Transf (AST/SGOT) 18 U/L (5-40) Alanine Aminotransferase (ALT/SGPT) 15 U/L (3-41) Alkaline Phosphatase 88 U/L (40-129) Pro-B-Type Natriuretic Peptide 65 pg/mL (0-125) Total Protein 6.7 g/dL (6.6-8.7) Albumin 3.4 g/dL (3.5-5.2) L Globulin 3.3 g/dL Albumin/Globulin Ratio 1.0 (1.0-2.7) Current Medications Medications (Trade) Dose Ordered Sig/Van Route PRN Reason Start Time Stop Time Status Last Admin Dose Admin Acetaminophen (Tylenol) 650 mg Q4H PRN ORAL T>100.5 10/12/16 23:00 11/11/16 22:59 10/13/16 04:44 Amlodipine Besylate (Norvasc) 5 mg DAILY ORAL 10/13/16 09:00 11/12/16 08:59 10/13/16 09:13 Aripiprazole (Abilify) 30 mg BEDTIME ORAL 10/13/16 21:00 11/12/16 20:59 Dextrose (Dextrose 50%) STAT PRN IV Hypoglycemia 10/13/16 07:00 11/12/16 06:59 Gabapentin (Neurontin) 300 mg BID ORAL 10/13/16 09:00 11/12/16 08:59 10/13/16 09:13 Heparin Sodium (Porcine) (Heparin 5000 units/ml) 5,000 units EVERY 12 HOURS SUBQ 10/13/16 09:00 11/12/16 08:59 10/13/16 09:20 Insulin Aspart (NovoLOG) BEFORE MEALS AND HS SUBQ 10/13/16 06:30 11/12/16 06:29 Ondansetron HCl (Zofran) 4 mg Q6H PRN IVP Nausea & Vomiting 10/13/16 01:00 11/12/16 00:59 Piperacillin Sod/ Tazobactam Sod 3.375 gm/Sodium Chloride 110 ml @ 27.5 mls/hr Q8H IVPB 10/13/16 02:00 10/20/16 01:59 10/13/16 02:00 Polyethylene Glycol (Miralax) 17 gm DAILYPRN PRN ORAL Constipation 10/13/16 07:00 11/12/16 06:59 Sucralfate (Carafate) 1 gm FOUR TIMES A DAY ORAL 10/13/16 09:00 11/12/16 08:59 10/13/16 09:13 Tamsulosin HCl (Flomax) 0.4 mg DAILY ORAL 10/13/16 09:00 11/12/16 08:59 10/13/16 09:13 Temazepam (Restoril) 15 mg HSPRN PRN ORAL Insomnia 10/13/16 21:00 10/20/16 20:59 Trazodone HCl (Desyrel) 150 mg BEDTIME ORAL 10/13/16 21:00 11/12/16 20:59 Vancomycin HCl (Vanco rx to dose) 1 ea DAILY PRN MISC Per rx protocol 10/13/16 09:00 11/12/16 08:59 Vancomycin HCl/ Dextrose (Vancomycin/D5W) 275 ml @ 183.708 mls/hr Q12HR@0200,1400 IVPB 10/13/16 02:00 10/18/16 01:59 10/13/16 01:43 DEBORAH PEARSON M.D. Oct 13, 2016 10:26
[2016-10-13 12:00] VITALS: BP 123/74
--- NOTE | 2016-10-13 12:28 | Diagnostic Imaging Report ---
Indication: DYSPNEA Technique: One view of the chest Comparison: 10/09/2016 Findings: Inspiration is improved on the current exam. There is markedly decreased diffuse parenchymal disease, although interstitial and alveolar parenchymal opacity persists at the right lung base. The pleural spaces are clear. Heart size is normal Impression: Since 10/09/2016 interim marked improvement of previously demonstrated interstitial disease. Some residual disease is present at the right lung base
[2016-10-13] MEDS ORDERED: Tubing IV Secondary IV ONE (15:03)
--- NOTE | 2016-10-13 15:33 | Internal Med Progress Note ---
Subjective Date of Service: Oct 13, 2016 Physician Name Gopal Musa Attending Physician Monty Irwin MD Current Medications Medications (Trade) Dose Ordered Sig/Van Route PRN Reason Start Time Stop Time Status Last Admin Dose Admin Acetaminophen (Tylenol) 650 mg Q4H PRN ORAL T>100.5 10/12/16 23:00 11/11/16 22:59 10/13/16 11:16 Amlodipine Besylate (Norvasc) 5 mg DAILY ORAL 10/13/16 09:00 11/12/16 08:59 10/13/16 09:13 Aripiprazole (Abilify) 30 mg BEDTIME ORAL 10/13/16 21:00 11/12/16 20:59 Dextrose (Dextrose 50%) STAT PRN IV Hypoglycemia 10/13/16 07:00 11/12/16 06:59 Gabapentin (Neurontin) 300 mg BID ORAL 10/13/16 09:00 11/12/16 08:59 10/13/16 09:13 Heparin Sodium (Porcine) (Heparin 5000 units/ml) 5,000 units EVERY 12 HOURS SUBQ 10/13/16 09:00 11/12/16 08:59 10/13/16 09:20 Insulin Aspart (NovoLOG) BEFORE MEALS AND HS SUBQ 10/13/16 06:30 11/12/16 06:29 10/13/16 11:20 Ondansetron HCl (Zofran) 4 mg Q6H PRN IVP Nausea & Vomiting 10/13/16 01:00 11/12/16 00:59 Piperacillin Sod/ Tazobactam Sod 3.375 gm/Sodium Chloride 110 ml @ 27.5 mls/hr Q8H IVPB 10/13/16 02:00 10/20/16 01:59 10/13/16 11:00 Polyethylene Glycol (Miralax) 17 gm DAILYPRN PRN ORAL Constipation 10/13/16 07:00 11/12/16 06:59 Sucralfate (Carafate) 1 gm FOUR TIMES A DAY ORAL 10/13/16 09:00 11/12/16 08:59 10/13/16 13:26 Tamsulosin HCl (Flomax) 0.4 mg DAILY ORAL 10/13/16 09:00 11/12/16 08:59 10/13/16 09:13 Temazepam (Restoril) 15 mg HSPRN PRN ORAL Insomnia 10/13/16 21:00 10/20/16 20:59 Trazodone HCl (Desyrel) 150 mg BEDTIME ORAL 10/13/16 21:00 11/12/16 20:59 Vancomycin HCl (Vanco rx to dose) 1 ea DAILY PRN MISC Per rx protocol 10/13/16 09:00 11/12/16 08:59 Vancomycin HCl/ Dextrose (Vancomycin/D5W) 275 ml @ 183.708 mls/hr Q12HR@0200,1400 IVPB 10/13/16 02:00 10/18/16 01:59 10/13/16 13:26 Allergies: Coded Allergies: No Known Allergies (Unverified , 10/07/16) ROS Limited/Unobtainable: No Constitutional: Reports: no symptoms HEENT: Reports: no symptoms Cardiovascular: Reports: no symptoms Respiratory: Reports: shortness of breath Gastrointestinal/Abdominal: Reports: no symptoms Genitourinary: Reports: no symptoms Neurologic/Psychiatric: Reports: no symptoms Subjective 51 YO M admitted with respiratory distress, now pneumonia Currently tolerating nasal canula. Cover for Int Med-Dr Irwin. Objective Last Vital Signs Date Time Temp Pulse Resp B/P Pulse Ox O2 Delivery O2 Flow Rate FiO2 10/13/16 12:15 97.9 10/13/16 12:00 72 20 123/74 100 Nasal Cannula 5.0 10/13/16 08:04 28 Laboratory Tests Test 10/13/16 06:30 White Blood Count 10.9 K/UL (4.8-10.8) H Red Blood Count 4.02 M/UL (4.70-6.10) L Hemoglobin 11.6 G/DL (14.2-18.0) L Hematocrit 33.3 % (42.0-52.0) L Mean Corpuscular Volume 83 FL (80-99) Mean Corpuscular Hemoglobin 28.8 PG (27.0-31.0) Mean Corpuscular Hemoglobin Concent 34.7 G/DL (32.0-36.0) Red Cell Distribution Width 12.2 % (11.6-14.8) Platelet Count 369 K/UL (150-450) Mean Platelet Volume 5.7 FL (6.5-10.1) L Neutrophils (%) (Auto) 70.3 % (45.0-75.0) Lymphocytes (%) (Auto) 17.4 % (20.0-45.0) L Monocytes (%) (Auto) 8.2 % (1.0-10.0) Eosinophils (%) (Auto) 3.3 % (0.0-3.0) H Basophils (%) (Auto) 0.8 % (0.0-2.0) Sodium Level 138 mEQ/L (135-145) Potassium Level 3.7 mEQ/L (3.4-4.9) Chloride Level 97 mEQ/L (98-107) L Carbon Dioxide Level 23 mEQ/L (20-30) Anion Gap 18 (5-15) H Blood Urea Nitrogen 18 mg/dL (7-23) Creatinine 0.8 mg/dL (0.7-1.2) Estimat Glomerular Filtration Rate > 60 mL/min (>60) Glucose Level 100 mg/dL (74-106) Calcium Level 9.3 mg/dL (8.6-10.2) Total Bilirubin 0.3 mg/dL (0.0-1.2) Aspartate Amino Transf (AST/SGOT) 18 U/L (5-40) Alanine Aminotransferase (ALT/SGPT) 15 U/L (3-41) Alkaline Phosphatase 88 U/L (40-129) Pro-B-Type Natriuretic Peptide 65 pg/mL (0-125) Total Protein 6.7 g/dL (6.6-8.7) Albumin 3.4 g/dL (3.5-5.2) L Globulin 3.3 g/dL Albumin/Globulin Ratio 1.0 (1.0-2.7) Microbiology Date/Time Source Procedure Growth Status 10/12/16 16:30 Stool Clostridium difficile Toxin Assay - Final Complete 10/12/16 16:30 Stool Received Intake and Output 10/12/16 10/13/16 19:00 07:00 Intake Total 1257.5 ml 742.5 ml Balance 1257.5 ml 742.5 ml Intake Oral 1120 ml 660 ml IV Total 137.5 ml 82.5 ml # Voids 4 3 # Bowel Movements 4 3 Objective General Appearance: WD/WN, no apparent distress, alert EENT: PERRL/EOMI, normal ENT inspection, TMs normal Neck: non-tender, normal alignment, supple Cardiovascular: normal peripheral pulses, normal rate, regular rhythm, no gallop/murmur, no JVD Respiratory/Chest: Nasal canula; respiratory distress, crackles/rales, rhonchi - bilaterally, expiratory wheezing Abdomen: normal bowel sounds, non tender, soft, no organomegaly, no mass Extremities: normal range of motion 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 Tolerating nasal canula. (3) COPD with acute exacerbation (4) Pneumonia Assessment & Plan: Bilateral. See ID and pulmonary note. Cont vanco and zosyn. PPD neg. Await sputum culture and acid fast culture results. (5) Hypertension Assessment & Plan: Cont amlodipine. (6) Diabetes mellitus Assessment & Plan: Cont novolog sliding scale. (7) Hypercholesteremia (8) Anemia (9) PTSD (post-traumatic stress disorder) Status: progressing GOPAL MUSA Oct 13, 2016 15:33
[2016-10-13 16:00] VITALS: BP 130/71
[2016-10-13 16:04] LABS: BLASTOMYCES AB - ID Negative (Neg:<1:1)
[2016-10-13 19:29] LABS: HISTO AB MYCELIAL Negative (Neg:<1:2); HISTOPLASMA MYCELIAL ID AB Negative (Negative)
[2016-10-13 20:00] VITALS: BP 143/77
[2016-10-13] MEDS: TraZODone 100mg tab ORAL SCH (21:43)
--- NOTE | 2016-10-13 22:31 | Pulmonology Progress Note ---
Assessment/Plan Problems: (1) Respiratory failure with hypoxia (2) Multiple nodules of lung (3) Hyponatremia (4) Anemia in chronic kidney disease (CKD) (5) COPD with acute exacerbation (6) Nicotine addiction Assessment/Plan mrsa in sputum clinically continues to improve continue antibiotics respiratory treatment f/u electrolytes check sputum add carafate po for epigastric pain PPD was negative ID consult appreciated can go to med/surg Subjective Allergies: Coded Allergies: No Known Allergies (Unverified , 10/07/16) Objective Last 24 Hour Vital Signs Date Time Temp Pulse Resp B/P Pulse Ox O2 Delivery O2 Flow Rate FiO2 10/13/16 19:40 Nasal Cannula 2.0 28 10/13/16 19:39 94 Nasal Cannula 2.0 28 10/13/16 16:00 98.2 76 22 130/71 97 Nasal Cannula 5.0 10/13/16 12:15 97.9 10/13/16 12:00 97.9 72 20 123/74 100 Nasal Cannula 5.0 10/13/16 10:47 97.9 10/13/16 09:13 75 127/82 10/13/16 08:04 98 Nasal Cannula 2.0 28 10/13/16 08:04 Nasal Cannula 2.0 28 10/13/16 08:00 97.2 78 20 127/77 95 Nasal Cannula 5.0 10/13/16 04:00 97.9 75 20 127/82 95 Nasal Cannula 2.0 10/13/16 00:00 98.1 77 22 128/74 95 Nasal Cannula 2.0 Intake and Output 10/12/16 10/13/16 19:00 07:00 Intake Total 1257.5 ml 742.5 ml Balance 1257.5 ml 742.5 ml Intake Oral 1120 ml 660 ml IV Total 137.5 ml 82.5 ml # Voids 4 3 # Bowel Movements 4 3 Objective General Appearance: WD/WN, no acute distress HEENT: normocephalic, anicteric Respiratory/Chest: chest wall non-tender, decreased breath sounds, positive rhonchi Cardiovascular: normal peripheral pulses, normal rate Abdomen: normal bowel sounds, soft, non tender Genitourinary: normal external genitalia Extremities: no cyanosis Skin: no rash 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3H, Basophils (%) (Auto) 0.8, Sodium Level 138, Potassium Level 3.7, Chloride Level 97L, Carbon Dioxide Level 23, Anion Gap 18H, Blood Urea Nitrogen 18, Creatinine 0.8, Estimat Glomerular Filtration Rate > 60, Glucose Level 100, Calcium Level 9.3, Total Bilirubin 0.3, Aspartate Amino Transf (AST/SGOT) 18, Alanine Aminotransferase (ALT/SGPT) 15, Alkaline Phosphatase 88, Pro-B-Type Natriuretic Peptide 65, Total Protein 6.7, Albumin 3.4L, Globulin 3.3, Albumin/Globulin Ratio 1.0 Current Medications Medications (Trade) Dose Ordered Sig/Van Route PRN Reason Start Time Stop Time Status Last Admin Dose Admin Acetaminophen (Tylenol) 650 mg Q4H PRN ORAL T>100.5 10/12/16 23:00 11/11/16 22:59 10/13/16 18:53 Amlodipine Besylate (Norvasc) 5 mg DAILY ORAL 10/13/16 09:00 11/12/16 08:59 10/13/16 09:13 Aripiprazole (Abilify) 30 mg BEDTIME ORAL 10/13/16 21:00 11/12/16 20:59 10/13/16 21:43 Dextrose (Dextrose 50%) STAT PRN IV Hypoglycemia 10/13/16 07:00 11/12/16 06:59 Gabapentin (Neurontin) 300 mg BID ORAL 10/13/16 09:00 11/12/16 08:59 10/13/16 18:42 Heparin Sodium (Porcine) (Heparin 5000 units/ml) 5,000 units EVERY 12 HOURS SUBQ 10/13/16 09:00 11/12/16 08:59 10/13/16 21:49 Insulin Aspart (NovoLOG) BEFORE MEALS AND HS SUBQ 10/13/16 06:30 11/12/16 06:29 10/13/16 21:51 Ondansetron HCl (Zofran) 4 mg Q6H PRN IVP Nausea & Vomiting 10/13/16 01:00 11/12/16 00:59 Piperacillin Sod/ Tazobactam Sod 3.375 gm/Sodium Chloride 110 ml @ 27.5 mls/hr Q8H IVPB 10/13/16 02:00 10/20/16 01:59 10/13/16 18:42 Polyethylene Glycol (Miralax) 17 gm DAILYPRN PRN ORAL Constipation 10/13/16 07:00 11/12/16 06:59 Sucralfate (Carafate) 1 gm FOUR TIMES A DAY ORAL 10/13/16 09:00 11/12/16 08:59 10/13/16 21:43 Tamsulosin HCl (Flomax) 0.4 mg DAILY ORAL 10/13/16 09:00 11/12/16 08:59 10/13/16 09:13 Temazepam (Restoril) 15 mg HSPRN PRN ORAL Insomnia 10/13/16 21:00 10/20/16 20:59 Trazodone HCl (Desyrel) 150 mg BEDTIME ORAL 10/13/16 21:00 11/12/16 20:59 10/13/16 21:43 Vancomycin HCl (Vanco rx to dose) 1 ea DAILY PRN MISC Per rx protocol 10/13/16 09:00 11/12/16 08:59 Vancomycin HCl/ Dextrose (Vancomycin/D5W) 275 ml @ 183.708 mls/hr Q12HR@0200,1400 IVPB 10/13/16 02:00 10/18/16 01:59 10/13/16 13:26 ANDRESSA CRAIG Oct 13, 2016 22:31
[2016-10-13] MEDS ORDERED: Lomotil 2.5mg tab ORAL PRN (23:30)
[2016-10-14] VITALS: BP 147/73
[2016-10-14] MEDS: Vancomycin 1.25 GM in D5W 275 ML IVPB SCH ×2 (00:15→14:18)
[2016-10-14] MEDS: Piperacillin/Tazobactam 3.375 GM in NS 110 ML IVPB SCH ×3 (02:12→18:46)
[2016-10-14 04:00] VITALS: BP 131/75
[2016-10-14] MEDS: NovoLOG Insulin Flexpen SUBQ SCH ×4 (06:18→21:00)
[2016-10-14 07:26] LABS: BASOPHILS % (AUTO) 0.5 % (0.0-2.0); EOSINOPHILS % (AUTO) 2.8 % (0.0-3.0); LYMPHOCYTES % (AUTO) 17.7 % (20.0-45.0); MEAN CORPUSCULAR HEMOGLOBIN 29.2 PG (27.0-31.0); MEAN CORPUSCULAR HGB CONC 34.2 G/DL (32.0-36.0); MEAN CORPUSCULAR VOLUME 86 FL (80-99); MEAN PLATELET VOLUME 5.4 FL (6.5-10.1); MONOCYTES % (AUTO) 6.4 % (1.0-10.0); NEUTROPHILS % (AUTO) 72.6 % (45.0-75.0); PLATELET COUNT 319 K/UL (150-450); RED BLOOD COUNT 3.79 M/UL (4.70-6.10); RED CELL DISTRIBUTION WIDTH 12.1 % (11.6-14.8); WHITE BLOOD COUNT 11.2 K/UL (4.8-10.8)
[2016-10-14 07:37] LABS: ANION GAP 16 (5-15); CALCIUM 9.3 mg/dL (8.6-10.2); CARBON DIOXIDE 25 mEQ/L (20-30); CHLORIDE 100 mEQ/L (98-107); CREATININE 0.8 mg/dL (0.7-1.2); GLOMERULAR FILTRATION RATE > 60 mL/min (>60); HEMOLYSIS 0; POTASSIUM 3.6 mEQ/L (3.4-4.9); SODIUM 141 mEQ/L (135-145)
[2016-10-14 08:00] VITALS: BP 144/85
[2016-10-14] MEDS: Sucralfate 1gm tab ORAL SCH ×4 (08:14→21:11)
[2016-10-14] MEDS: Tamsulosin 0.4mg cap ORAL SCH (08:15)
[2016-10-14] MEDS: Heparin 5000 units/ml inj SUBQ SCH ×2 (08:17→21:10)
--- NOTE | 2016-10-14 10:44 | Infectious Diseases Prog Note ---
Assessment/Plan Assessment/Plan ASSESSMENT: 51-year-old male with: Pneumonia RO TB - SCx Serratia,and MRSA, AFB smear(-) x1 / 3, PCR pending - Histoplasma(+) 1:8 - CXR 10/13: interim marked improvement of previously demonstrated interstitial disease. Some residual disease is present at the right lung base - CT Chest 10/07: Extensive diffuse bilateral pulmonary groundglass opacities - negative: T-spot, CrAg, blastomyces Negative HIV Negative C.difficile Leukocytosis, mild Low grade fever - resolved COPD exacerbation Elevated ESR, CRP Diabetes. History of psychiatric disorder. BPH. NKDA Full Code PLAN: continue IV vancomycin d# . Finishes Zosyn d# today f/u final cultures Monitor CBC, temperatures Monitor BMP. Monitor chest x-ray. sputum AFB x 2:P [place] iso Subjective Allergies: Coded Allergies: No Known Allergies (Unverified , 10/07/16) Subjective remains afebrile. no new complaint Objective Vital Signs Last 24 Hour Vital Signs Date Time Temp Pulse Resp B/P Pulse Ox O2 Delivery O2 Flow Rate FiO2 10/14/16 09:13 97.3 10/14/16 09:12 97.3 10/14/16 08:14 83 144/85 10/14/16 08:00 97.3 83 19 144/85 98 Room Air 10/14/16 07:55 95 Nasal Cannula 2.0 28 10/14/16 07:55 Nasal Cannula 2.0 28 10/14/16 04:00 97.5 75 18 131/75 98 Nasal Cannula 5.0 10/14/16 00:00 97.7 73 18 147/73 100 Nasal Cannula 5.0 10/13/16 20:00 98.2 77 20 143/77 99 Nasal Cannula 5.0 10/13/16 19:40 Nasal Cannula 2.0 28 10/13/16 19:39 94 Nasal Cannula 2.0 28 10/13/16 16:00 98.2 76 22 130/71 97 Nasal Cannula 5.0 10/13/16 12:00 97.9 72 20 123/74 100 Nasal Cannula 5.0 Height (Feet): 5 Height (Inches): 6.00 Weight (Pounds): 180 General Appearance: no acute distress Respiratory/Chest: no respiratory distress Cardiovascular: normal rate, regular rhythm Abdomen: normal bowel sounds, soft, non tender, non distended Microbiology Date/Time Source Procedure Growth Status 10/12/16 16:30 Stool Clostridium difficile Toxin Assay - Final Complete 10/12/16 16:30 Stool Received Laboratory Tests Test 10/14/16 05:30 White Blood Count 11.2 K/UL (4.8-10.8) H Red Blood Count 3.79 M/UL (4.70-6.10) L Hemoglobin 11.1 G/DL (14.2-18.0) L Hematocrit 32.4 % (42.0-52.0) L Mean Corpuscular Volume 86 FL (80-99) Mean Corpuscular Hemoglobin 29.2 PG (27.0-31.0) Mean Corpuscular Hemoglobin Concent 34.2 G/DL (32.0-36.0) Red Cell Distribution Width 12.1 % (11.6-14.8) Platelet Count 319 K/UL (150-450) Mean Platelet Volume 5.4 FL (6.5-10.1) L Neutrophils (%) (Auto) 72.6 % (45.0-75.0) Lymphocytes (%) (Auto) 17.7 % (20.0-45.0) L Monocytes (%) (Auto) 6.4 % (1.0-10.0) Eosinophils (%) (Auto) 2.8 % (0.0-3.0) Basophils (%) (Auto) 0.5 % (0.0-2.0) Sodium Level 141 mEQ/L (135-145) Potassium Level 3.6 mEQ/L (3.4-4.9) Chloride Level 100 mEQ/L (98-107) Carbon Dioxide Level 25 mEQ/L (20-30) Anion Gap 16 (5-15) H Blood Urea Nitrogen 13 mg/dL (7-23) Creatinine 0.8 mg/dL (0.7-1.2) Estimat Glomerular Filtration Rate > 60 mL/min (>60) Glucose Level 112 mg/dL (74-106) H Calcium Level 9.3 mg/dL (8.6-10.2) Current Medications Medications (Trade) Dose Ordered Sig/Van Route PRN Reason Start Time Stop Time Status Last Admin Dose Admin Acetaminophen (Tylenol) 650 mg Q4H PRN ORAL T>100.5 10/12/16 23:00 11/11/16 22:59 10/14/16 08:14 Amlodipine Besylate (Norvasc) 5 mg DAILY ORAL 10/13/16 09:00 11/12/16 08:59 10/14/16 08:14 Aripiprazole (Abilify) 30 mg BEDTIME ORAL 10/13/16 21:00 11/12/16 20:59 10/13/16 21:43 Dextrose (Dextrose 50%) STAT PRN IV Hypoglycemia 10/13/16 07:00 11/12/16 06:59 Diphenoxylate HCl/ Atropine (Lomotil) 2.5 mg Q4H PRN ORAL Diarrhea 10/13/16 23:30 11/12/16 23:29 10/14/16 00:15 Gabapentin (Neurontin) 300 mg BID ORAL 10/13/16 09:00 11/12/16 08:59 10/14/16 08:13 Heparin Sodium (Porcine) (Heparin 5000 units/ml) 5,000 units EVERY 12 HOURS SUBQ 10/13/16 09:00 11/12/16 08:59 10/13/16 21:49 Insulin Aspart (NovoLOG) BEFORE MEALS AND HS SUBQ 10/13/16 06:30 11/12/16 06:29 10/13/16 21:51 Ondansetron HCl (Zofran) 4 mg Q6H PRN IVP Nausea & Vomiting 10/13/16 01:00 11/12/16 00:59 Piperacillin Sod/ Tazobactam Sod 3.375 gm/Sodium Chloride 110 ml @ 27.5 mls/hr Q8H IVPB 10/13/16 02:00 10/20/16 01:59 10/14/16 10:31 Polyethylene Glycol (Miralax) 17 gm DAILYPRN PRN ORAL Constipation 10/13/16 07:00 11/12/16 06:59 Sucralfate (Carafate) 1 gm FOUR TIMES A DAY ORAL 10/13/16 09:00 11/12/16 08:59 10/14/16 08:14 Tamsulosin HCl (Flomax) 0.4 mg DAILY ORAL 10/13/16 09:00 11/12/16 08:59 10/14/16 08:15 Temazepam (Restoril) 15 mg HSPRN PRN ORAL Insomnia 10/13/16 21:00 10/20/16 20:59 10/14/16 00:12 Trazodone HCl (Desyrel) 150 mg BEDTIME ORAL 10/13/16 21:00 11/12/16 20:59 10/13/16 21:43 Vancomycin HCl (Vanco rx to dose) 1 ea DAILY PRN MISC Per rx protocol 10/13/16 09:00 11/12/16 08:59 Vancomycin HCl/ Dextrose (Vancomycin/D5W) 275 ml @ 183.708 mls/hr Q12HR@0200,1400 IVPB 10/13/16 02:00 10/18/16 01:59 10/14/16 00:15 JAREK CLARKE 17, 2017 10:44
[2016-10-14 12:00] VITALS: BP 124/84
--- NOTE | 2016-10-14 12:06 | Pulmonology Progress Note ---
Assessment/Plan Assessment/Plan ASSESSMENT acute hypoxemic respiratory failure acute COPD exacerbation nicotine addiction anemia of chronic kidney disease hyponatremia PNA acute renal failure -resolved HTN DM psych disorder PLAN OF CARE MS floor O2 HHN prn abx ID follows sputum cx + MRSA, Serratia TB test negative fungal serology + Histoplasma Ab with yeast stool C dif negative sputum AFB x 1 negative , need [address] chest with extensive bilateral ground glasses opacities Venous Duplex BLE negative ECHO with EF 55% and RVSP of 21 last CXR with improvement BP management with CCB BS management with SS of insulin DVT prophylaxis continue psych meds renal parameters down to normal likely prerenal , resolved after IV fluids renal US negative hypo Na resolved after IVF , likely depletional case discussed and evaluated by supervising physician Subjective Allergies: Coded Allergies: No Known Allergies (Unverified , 10/07/16) Subjective mild leukocytosis, afebrile on isolation no signs of respiratory distress Objective Last 24 Hour Vital Signs Date Time Temp Pulse Resp B/P Pulse Ox O2 Delivery O2 Flow Rate FiO2 10/14/16 09:13 97.3 10/14/16 09:12 97.3 10/14/16 08:14 83 144/85 10/14/16 08:00 97.3 83 19 144/85 98 Room Air 10/14/16 07:55 95 Nasal Cannula 2.0 28 10/14/16 07:55 Nasal Cannula 2.0 28 10/14/16 04:00 97.5 75 18 131/75 98 Nasal Cannula 5.0 10/14/16 00:00 97.7 73 18 147/73 100 Nasal Cannula 5.0 10/13/16 20:00 98.2 77 20 143/77 99 Nasal Cannula 5.0 10/13/16 19:40 Nasal Cannula 2.0 28 10/13/16 19:39 94 Nasal Cannula 2.0 28 10/13/16 16:00 98.2 76 22 130/71 97 Nasal Cannula 5.0 10/13/16 12:00 97.9 72 20 123/74 100 Nasal Cannula 5.0 Intake and Output 10/13/16 10/14/16 19:00 07:00 Intake Total 720 ml 710.0 ml Balance 720 ml 710.0 ml Intake Oral 720 ml 600 ml IV Total 110.0 ml # Voids 3 3 # Bowel Movements 3 2 Objective General Appearance: WD/WN, no apparent distress, awake, alert, responsive EENT: PERRL/EOMI, Neck: non-tender, supple Cardiovascular: normal peripheral pulses, normal rate, regular rhythm, no gallop/murmur, no JVD Respiratory/Chest: few scattered rhonchi - bilaterally Abdomen: normal bowel sounds, non tender, soft, Extremities: normal range of motion 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, no motor/sensory deficits Skin: warm/dry Microbiology Date/Time Source Procedure Growth Status 10/12/16 16:30 Stool Clostridium difficile Toxin Assay - Final Complete 10/12/16 16:30 Stool Received Laboratory Tests 10/14/16 05:30: White Blood Count 11.2H, Red Blood Count 3.79L, Hemoglobin 11.1L, Hematocrit 32.4L, Mean Corpuscular Volume 86, Mean Corpuscular Hemoglobin 29.2, Mean Corpuscular Hemoglobin Concent 34.2, Red Cell Distribution Width 12.1, Platelet Count 319, Mean Platelet Volume 5.4L, Neutrophils (%) (Auto) 72.6, Lymphocytes ( %) (Auto) 17.7L, Monocytes (%) (Auto) 6.4, Eosinophils (%) (Auto) 2.8, Basophils (%) (Auto) 0.5, Sodium Level 141, Potassium Level 3.6, Chloride Level 100, Carbon Dioxide Level 25, Anion Gap 16H, Blood Urea Nitrogen 13, Creatinine 0.8, Estimat Glomerular Filtration Rate > 60, Glucose Level 112H, Calcium Level 9.3 Current Medications Medications (Trade) Dose Ordered Sig/Van Route PRN Reason Start Time Stop Time Status Last Admin Dose Admin Acetaminophen (Tylenol) 650 mg Q4H PRN ORAL T>100.5 10/12/16 23:00 11/11/16 22:59 10/14/16 08:14 Amlodipine Besylate (Norvasc) 5 mg DAILY ORAL 10/13/16 09:00 11/12/16 08:59 10/14/16 08:14 Aripiprazole (Abilify) 30 mg BEDTIME ORAL 10/13/16 21:00 11/12/16 20:59 10/13/16 21:43 Dextrose (Dextrose 50%) STAT PRN IV Hypoglycemia 10/13/16 07:00 11/12/16 06:59 Diphenoxylate HCl/ Atropine (Lomotil) 2.5 mg Q4H PRN ORAL Diarrhea 10/13/16 23:30 11/12/16 23:29 10/14/16 00:15 Gabapentin (Neurontin) 300 mg BID ORAL 10/13/16 09:00 11/12/16 08:59 10/14/16 08:13 Heparin Sodium (Porcine) (Heparin 5000 units/ml) 5,000 units EVERY 12 HOURS SUBQ 10/13/16 09:00 11/12/16 08:59 10/13/16 21:49 Insulin Aspart (NovoLOG) BEFORE MEALS AND HS SUBQ 10/13/16 06:30 11/12/16 06:29 10/13/16 21:51 Ondansetron HCl (Zofran) 4 mg Q6H PRN IVP Nausea & Vomiting 10/13/16 01:00 11/12/16 00:59 Piperacillin Sod/ Tazobactam Sod 3.375 gm/Sodium Chloride 110 ml @ 27.5 mls/hr Q8H IVPB 10/13/16 02:00 10/14/16 23:59 10/14/16 10:31 Polyethylene Glycol (Miralax) 17 gm DAILYPRN PRN ORAL Constipation 10/13/16 07:00 11/12/16 06:59 Sucralfate (Carafate) 1 gm FOUR TIMES A DAY ORAL 10/13/16 09:00 11/12/16 08:59 10/14/16 08:14 Tamsulosin HCl (Flomax) 0.4 mg DAILY ORAL 10/13/16 09:00 11/12/16 08:59 10/14/16 08:15 Temazepam (Restoril) 15 mg HSPRN PRN ORAL Insomnia 10/13/16 21:00 10/20/16 20:59 10/14/16 00:12 Trazodone HCl (Desyrel) 150 mg BEDTIME ORAL 10/13/16 21:00 11/12/16 20:59 10/13/16 21:43 Vancomycin HCl (Vanco rx to dose) 1 ea DAILY PRN MISC Per rx protocol 10/13/16 09:00 11/12/16 08:59 Vancomycin HCl/ Dextrose (Vancomycin/D5W) 275 ml @ 183.708 mls/hr Q12HR@0200,1400 IVPB 10/13/16 02:00 10/18/16 01:59 10/14/16 00:15 [place] [facility]Melody Gerber NP Oct 14, 2016 12:06
[2016-10-14 13:15] LABS: MTB PROCESSING Concentration (.)
[2016-10-14 16:00] VITALS: BP 132/75
--- NOTE | 2016-10-14 16:20 | Internal Med Progress Note ---
Subjective Date of Service: Oct 14, 2016 Physician Name BritoJustin dickens Attending Physician Monty Irwin MD Current Medications Medications (Trade) Dose Ordered Sig/Van Route PRN Reason Start Time Stop Time Status Last Admin Dose Admin Acetaminophen (Tylenol) 650 mg Q4H PRN ORAL T>100.5 10/12/16 23:00 11/11/16 22:59 10/14/16 12:41 Amlodipine Besylate (Norvasc) 5 mg DAILY ORAL 10/13/16 09:00 11/12/16 08:59 10/14/16 08:14 Aripiprazole (Abilify) 30 mg BEDTIME ORAL 10/13/16 21:00 11/12/16 20:59 10/13/16 21:43 Dextrose (Dextrose 50%) STAT PRN IV Hypoglycemia 10/13/16 07:00 11/12/16 06:59 Diphenoxylate HCl/ Atropine (Lomotil) 2.5 mg Q4H PRN ORAL Diarrhea 10/13/16 23:30 11/12/16 23:29 10/14/16 00:15 Gabapentin (Neurontin) 300 mg BID ORAL 10/13/16 09:00 11/12/16 08:59 10/14/16 08:13 Heparin Sodium (Porcine) (Heparin 5000 units/ml) 5,000 units EVERY 12 HOURS SUBQ 10/13/16 09:00 11/12/16 08:59 10/13/16 21:49 Insulin Aspart (NovoLOG) BEFORE MEALS AND HS SUBQ 10/13/16 06:30 11/12/16 06:29 10/14/16 12:37 Ondansetron HCl (Zofran) 4 mg Q6H PRN IVP Nausea & Vomiting 10/13/16 01:00 11/12/16 00:59 Piperacillin Sod/ Tazobactam Sod 3.375 gm/Sodium Chloride 110 ml @ 27.5 mls/hr Q8H IVPB 10/13/16 02:00 10/14/16 23:59 10/14/16 10:31 Polyethylene Glycol (Miralax) 17 gm DAILYPRN PRN ORAL Constipation 10/13/16 07:00 11/12/16 06:59 Sucralfate (Carafate) 1 gm FOUR TIMES A DAY ORAL 10/13/16 09:00 11/12/16 08:59 10/14/16 12:40 Tamsulosin HCl (Flomax) 0.4 mg DAILY ORAL 10/13/16 09:00 11/12/16 08:59 10/14/16 08:15 Temazepam (Restoril) 15 mg HSPRN PRN ORAL Insomnia 10/13/16 21:00 10/20/16 20:59 10/14/16 00:12 Trazodone HCl (Desyrel) 150 mg BEDTIME ORAL 10/13/16 21:00 11/12/16 20:59 10/13/16 21:43 Vancomycin HCl (Vanco rx to dose) 1 ea DAILY PRN MISC Per rx protocol 10/13/16 09:00 11/12/16 08:59 Vancomycin HCl/ Dextrose (Vancomycin/D5W) 275 ml @ 183.708 mls/hr Q12HR@0200,1400 IVPB 10/13/16 02:00 10/18/16 01:59 10/14/16 14:18 Allergies: Coded Allergies: No Known Allergies (Unverified , 10/07/16) ROS Limited/Unobtainable: No Constitutional: Reports: no symptoms HEENT: Reports: no symptoms Cardiovascular: Reports: no symptoms Respiratory: Reports: shortness of breath Gastrointestinal/Abdominal: Reports: no symptoms Neurologic/Psychiatric: Reports: no symptoms Subjective 51 YO M admitted with respiratory distress, now pneumonia Currently tolerating nasal canula. Cover for Int Alexander-Dr Irwin. Objective Last Vital Signs Date Time Temp Pulse Resp B/P Pulse Ox O2 Delivery O2 Flow Rate FiO2 10/14/16 13:44 97.3 10/14/16 12:00 86 19 124/84 94 Nasal Cannula 5.0 10/14/16 07:55 28 Laboratory Tests Test 10/14/16 05:30 White Blood Count 11.2 K/UL (4.8-10.8) H Red Blood Count 3.79 M/UL (4.70-6.10) L Hemoglobin 11.1 G/DL (14.2-18.0) L Hematocrit 32.4 % (42.0-52.0) L Mean Corpuscular Volume 86 FL (80-99) Mean Corpuscular Hemoglobin 29.2 PG (27.0-31.0) Mean Corpuscular Hemoglobin Concent 34.2 G/DL (32.0-36.0) Red Cell Distribution Width 12.1 % (11.6-14.8) Platelet Count 319 K/UL (150-450) Mean Platelet Volume 5.4 FL (6.5-10.1) L Neutrophils (%) (Auto) 72.6 % (45.0-75.0) Lymphocytes (%) (Auto) 17.7 % (20.0-45.0) L Monocytes (%) (Auto) 6.4 % (1.0-10.0) Eosinophils (%) (Auto) 2.8 % (0.0-3.0) Basophils (%) (Auto) 0.5 % (0.0-2.0) Sodium Level 141 mEQ/L (135-145) Potassium Level 3.6 mEQ/L (3.4-4.9) Chloride Level 100 mEQ/L (98-107) Carbon Dioxide Level 25 mEQ/L (20-30) Anion Gap 16 (5-15) H Blood Urea Nitrogen 13 mg/dL (7-23) Creatinine 0.8 mg/dL (0.7-1.2) Estimat Glomerular Filtration Rate > 60 mL/min (>60) Glucose Level 112 mg/dL (74-106) H Calcium Level 9.3 mg/dL (8.6-10.2) Microbiology Date/Time Source Procedure Growth Status 10/13/16 09:22 Sputum AFB Specimen Processing Tissue - Final Resulted 10/13/16 09:22 Sputum Acid Fast Bacilli Smear - Final Resulted 10/13/16 09:22 Sputum Acid Fast Bacilli Culture Pending Resulted 10/12/16 16:30 Stool Clostridium difficile Toxin Assay - Final Complete 10/12/16 16:30 Stool Stool Culture - Preliminary NORMAL FECAL FARZANA. Resulted Intake and Output 10/13/16 10/14/16 19:00 07:00 Intake Total 720 ml 710.0 ml Balance 720 ml 710.0 ml Intake Oral 720 ml 600 ml IV Total 110.0 ml # Voids 3 3 # Bowel Movements 3 2 Objective General Appearance: WD/WN, no apparent distress, alert EENT: PERRL/EOMI, normal ENT inspection, TMs normal Neck: non-tender, normal alignment, supple Cardiovascular: normal peripheral pulses, normal rate, regular rhythm, no gallop/murmur, no JVD Respiratory/Chest: Nasal canula; respiratory distress, crackles/rales, rhonchi - bilaterally, expiratory wheezing Abdomen: normal bowel sounds, non tender, soft, no organomegaly, no mass Extremities: normal range of motion 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 Tolerating nasal canula. (3) COPD with acute exacerbation (4) Pneumonia Assessment & Plan: Bilateral. See ID and pulmonary note. Cont vanco and zosyn. PPD neg. Await sputum culture and acid fast culture results. (5) Hypertension Assessment & Plan: Cont amlodipine. (6) Diabetes mellitus Assessment & Plan: Cont novolog sliding scale. (7) Hypercholesteremia (8) Anemia (9) PTSD (post-traumatic stress disorder) Status: stable JUSTIN BRITO Oct 14, 2016 16:20
[2016-10-14 20:00] VITALS: BP 140/77
[2016-10-14] MEDS: TraZODone 100mg tab ORAL SCH (21:09)
[2016-10-15] VITALS (8 sets, daily range): BP systolic 102–149; BP diastolic 58–86
[2016-10-15] MEDS: Vancomycin 1.25 GM in D5W 275 ML IVPB SCH ×2 (02:06→13:19)
[2016-10-15] MEDS: NovoLOG Insulin Flexpen SUBQ SCH ×4 (06:25→21:00)
[2016-10-15 08:15] LABS: BASOPHILS % (AUTO) 0.6 % (0.0-2.0); EOSINOPHILS % (AUTO) 2.6 % (0.0-3.0); LYMPHOCYTES % (AUTO) 17.7 % (20.0-45.0); MEAN CORPUSCULAR HEMOGLOBIN 29.2 PG (27.0-31.0); MEAN CORPUSCULAR HGB CONC 34.7 G/DL (32.0-36.0); MEAN CORPUSCULAR VOLUME 84 FL (80-99); MEAN PLATELET VOLUME 5.6 FL (6.5-10.1); MONOCYTES % (AUTO) 7.8 % (1.0-10.0); NEUTROPHILS % (AUTO) 71.4 % (45.0-75.0); PLATELET COUNT 404 K/UL (150-450); RED CELL DISTRIBUTION WIDTH 12.6 % (11.6-14.8); WHITE BLOOD COUNT 10.3 K/UL (4.8-10.8)
[2016-10-15] MEDS: Tamsulosin 0.4mg cap ORAL SCH (08:36)
[2016-10-15] MEDS: Sucralfate 1gm tab ORAL SCH ×4 (08:36→21:11)
[2016-10-15] MEDS: Heparin 5000 units/ml inj SUBQ SCH ×2 (08:38→21:15)
[2016-10-15 08:52] LABS: ANION GAP 18 (5-15); CALCIUM 9.4 mg/dL (8.6-10.2); CARBON DIOXIDE 24 mEQ/L (20-30); CHLORIDE 96 mEQ/L (98-107); CREATININE 0.9 mg/dL (0.7-1.2); GLOMERULAR FILTRATION RATE > 60 mL/min (>60); HEMOLYSIS 2; POTASSIUM 3.7 mEQ/L (3.4-4.9); SODIUM 138 mEQ/L (135-145)
--- NOTE | 2016-10-15 10:39 | Infectious Diseases Prog Note ---
Assessment/Plan Assessment/Plan ASSESSMENT: 51-year-old male with: Pneumonia RO TB - SCx Serratia,and MRSA, AFB smear(-) x2 / 3, PCR pending - Histoplasma(+) 1:8 ?significance - CXR 10/13: interim marked improvement of previously demonstrated interstitial disease. Some residual disease is present at the right lung base - CT Chest 10/07: Extensive diffuse bilateral pulmonary groundglass opacities - negative: T-spot, CrAg, blastomyces Negative HIV Negative C.difficile Leukocytosis, mild - resolved Low grade fever - resolved COPD exacerbation Elevated ESR, CRP Diabetes. History of psychiatric disorder. BPH. NKDA Full Code PLAN: continue IV vancomycin d# . ( 10/14 SP Zosyn d# ) f/u final cultures Monitor CBC, temperatures Monitor BMP. Monitor chest x-ray. sputum AFB x 1:P [place] iso Subjective Allergies: Coded Allergies: No Known Allergies (Unverified , 10/07/16) Subjective remains afebrile. no new complaint Objective Vital Signs Last 24 Hour Vital Signs Date Time Temp Pulse Resp B/P Pulse Ox O2 Delivery O2 Flow Rate FiO2 10/15/16 08:36 82 145/74 10/15/16 08:35 97.2 82 20 145/74 98 Nasal Cannula 10/15/16 04:00 97.9 64 18 102/58 97 10/15/16 00:00 97.7 64 18 110/65 97 Nasal Cannula 5.0 10/14/16 20:00 99.1 74 18 140/77 100 Nasal Cannula 5.0 10/14/16 19:30 Nasal Cannula 4.0 36 10/14/16 19:30 97 Nasal Cannula 4.0 36 10/14/16 16:00 97.2 78 19 132/75 100 Nasal Cannula 5.0 10/14/16 13:44 97.3 10/14/16 12:00 98.1 86 19 124/84 94 Nasal Cannula 5.0 Height (Feet): 5 Height (Inches): 6.00 Weight (Pounds): 180 General Appearance: no acute distress Respiratory/Chest: no respiratory distress Cardiovascular: normal rate, regular rhythm Abdomen: normal bowel sounds, soft, non tender, non distended Microbiology Date/Time Source Procedure Growth Status 10/13/16 09:22 Sputum AFB Specimen Processing Tissue - Final Resulted 10/13/16 09:22 Sputum Acid Fast Bacilli Smear - Final Resulted 10/13/16 09:22 Sputum Acid Fast Bacilli Culture Pending Resulted 10/12/16 16:30 Stool Clostridium difficile Toxin Assay - Final Complete 10/12/16 16:30 Stool Stool Culture - Final Radha Albicans Complete Laboratory Tests Test 10/15/16 06:05 White Blood Count 10.3 K/UL (4.8-10.8) Red Blood Count 4.20 M/UL (4.70-6.10) L Hemoglobin 12.3 G/DL (14.2-18.0) L Hematocrit 35.3 % (42.0-52.0) L Mean Corpuscular Volume 84 FL (80-99) Mean Corpuscular Hemoglobin 29.2 PG (27.0-31.0) Mean Corpuscular Hemoglobin Concent 34.7 G/DL (32.0-36.0) Red Cell Distribution Width 12.6 % (11.6-14.8) Platelet Count 404 K/UL (150-450) Mean Platelet Volume 5.6 FL (6.5-10.1) L Neutrophils (%) (Auto) 71.4 % (45.0-75.0) Lymphocytes (%) (Auto) 17.7 % (20.0-45.0) L Monocytes (%) (Auto) 7.8 % (1.0-10.0) Eosinophils (%) (Auto) 2.6 % (0.0-3.0) Basophils (%) (Auto) 0.6 % (0.0-2.0) Sodium Level 138 mEQ/L (135-145) Potassium Level 3.7 mEQ/L (3.4-4.9) Chloride Level 96 mEQ/L (98-107) L Carbon Dioxide Level 24 mEQ/L (20-30) Anion Gap 18 (5-15) H Blood Urea Nitrogen 13 mg/dL (7-23) Creatinine 0.9 mg/dL (0.7-1.2) Estimat Glomerular Filtration Rate > 60 mL/min (>60) Glucose Level 77 mg/dL (74-106) Calcium Level 9.4 mg/dL (8.6-10.2) Current Medications Medications (Trade) Dose Ordered Sig/Van Route PRN Reason Start Time Stop Time Status Last Admin Dose Admin Acetaminophen (Tylenol) 650 mg Q4H PRN ORAL T>100.5 10/12/16 23:00 11/11/16 22:59 10/15/16 08:37 Amlodipine Besylate (Norvasc) 5 mg DAILY ORAL 10/13/16 09:00 11/12/16 08:59 10/15/16 08:36 Aripiprazole (Abilify) 30 mg BEDTIME ORAL 10/13/16 21:00 11/12/16 20:59 10/14/16 21:11 Dextrose (Dextrose 50%) STAT PRN IV Hypoglycemia 10/13/16 07:00 11/12/16 06:59 Diphenoxylate HCl/ Atropine (Lomotil) 2.5 mg Q4H PRN ORAL Diarrhea 10/13/16 23:30 11/12/16 23:29 10/14/16 00:15 Gabapentin (Neurontin) 300 mg BID ORAL 10/13/16 09:00 11/12/16 08:59 10/15/16 08:37 Heparin Sodium (Porcine) (Heparin 5000 units/ml) 5,000 units EVERY 12 HOURS SUBQ 10/13/16 09:00 11/12/16 08:59 10/15/16 08:38 Insulin Aspart (NovoLOG) BEFORE MEALS AND HS SUBQ 10/13/16 06:30 11/12/16 06:29 10/14/16 16:56 Ondansetron HCl (Zofran) 4 mg Q6H PRN IVP Nausea & Vomiting 10/13/16 01:00 11/12/16 00:59 Polyethylene Glycol (Miralax) 17 gm DAILYPRN PRN ORAL Constipation 10/13/16 07:00 11/12/16 06:59 Sucralfate (Carafate) 1 gm FOUR TIMES A DAY ORAL 10/13/16 09:00 11/12/16 08:59 10/15/16 08:36 Tamsulosin HCl (Flomax) 0.4 mg DAILY ORAL 10/13/16 09:00 11/12/16 08:59 10/15/16 08:36 Temazepam (Restoril) 15 mg HSPRN PRN ORAL Insomnia 10/13/16 21:00 10/20/16 20:59 10/15/16 02:24 Trazodone HCl (Desyrel) 150 mg BEDTIME ORAL 10/13/16 21:00 11/12/16 20:59 10/14/16 21:09 Vancomycin HCl (Vanco rx to dose) 1 ea DAILY PRN MISC Per rx protocol 10/13/16 09:00 11/12/16 08:59 Vancomycin HCl/ Dextrose (Vancomycin/D5W) 275 ml @ 183.708 mls/hr Q12HR@0200,1400 IVPB 10/13/16 02:00 10/18/16 01:59 10/15/16 02:06 JAREK CLARKE 18, 2017 10:39
--- NOTE | 2016-10-15 14:16 | Pulmonology Progress Note ---
Assessment/Plan Assessment/Plan ASSESSMENT acute hypoxemic respiratory failure acute COPD exacerbation nicotine addiction anemia of chronic kidney disease hyponatremia PNA acute renal failure -resolved HTN DM psych disorder PLAN OF CARE MS floor O2 HHN prn abx ID follows sputum cx + MRSA, Serratia TB test negative fungal serology + Histoplasma Ab with yeast stool C dif negative sputum AFB x 1 negative , need 2 more AFB sputum inflammatory markers severely elevated CT chest with extensive bilateral ground glasses opacities Venous Duplex BLE negative ECHO with EF 55% and RVSP of 21 last CXR with improvement BP management with CCB BS management with SS of insulin DVT prophylaxis continue psych meds renal parameters down to normal likely prerenal , resolved after IV fluids renal US negative hypo Na resolved after IVF , likely depletional case discussed and evaluated by supervising physician Subjective Allergies: Coded Allergies: No Known Allergies (Unverified , 10/07/16) Subjective leukocytosis resolved , afebrile on isolation no signs of respiratory distress severely elevated inflammatory markers Objective Last 24 Hour Vital Signs Date Time Temp Pulse Resp B/P Pulse Ox O2 Delivery O2 Flow Rate FiO2 10/15/16 12:04 97.4 86 20 138/70 99 Room Air 10/15/16 11:51 Nasal Cannula 4.0 36 10/15/16 11:51 99 Nasal Cannula 4.0 36 10/15/16 08:36 82 145/74 10/15/16 08:35 97.2 82 20 145/74 98 Nasal Cannula 10/15/16 04:00 97.9 64 18 102/58 97 10/15/16 00:00 97.7 64 18 110/65 97 Nasal Cannula 5.0 10/14/16 20:00 99.1 74 18 140/77 100 Nasal Cannula 5.0 10/14/16 19:30 Nasal Cannula 4.0 36 10/14/16 19:30 97 Nasal Cannula 4.0 36 10/14/16 16:00 97.2 78 19 132/75 100 Nasal Cannula 5.0 Intake and Output 10/14/16 10/15/16 19:00 07:00 Intake Total 1437.500 ml 657.500 ml Balance 1437.500 ml 657.500 ml Intake Oral 1080 ml 300 ml IV Total 357.500 ml 357.500 ml # Voids 6 3 # Bowel Movements 3 3 Objective General Appearance: WD/WN, no apparent distress, awake, alert, responsive EENT: PERRL/EOMI, Neck: non-tender, supple Cardiovascular: normal peripheral pulses, normal rate, regular rhythm, no gallop/murmur, no JVD Respiratory/Chest: few scattered rhonchi - bilaterally Abdomen: normal bowel sounds, non tender, soft, Extremities: normal range of motion 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, no motor/sensory deficits Skin: warm/dry Microbiology Date/Time Source Procedure Growth Status 10/13/16 09:22 Sputum AFB Specimen Processing Tissue - Final Resulted 10/13/16 09:22 Sputum Acid Fast Bacilli Smear - Final Resulted 10/13/16 09:22 Sputum Acid Fast Bacilli Culture Pending Resulted 10/12/16 16:30 Stool Clostridium difficile Toxin Assay - Final Complete 10/12/16 16:30 Stool Stool Culture - Final Radha Albicans Complete Laboratory Tests 10/15/16 06:05: White Blood Count 10.3, Red Blood Count 4.20L, Hemoglobin 12.3L, Hematocrit 35.3L, Mean Corpuscular Volume 84, Mean Corpuscular Hemoglobin 29.2, Mean Corpuscular Hemoglobin Concent 34.7, Red Cell Distribution Width 12.6, Platelet Count 404, Mean Platelet Volume 5.6L, Neutrophils (%) (Auto) 71.4, Lymphocytes ( %) (Auto) 17.7L, Monocytes (%) (Auto) 7.8, Eosinophils (%) (Auto) 2.6, Basophils (%) (Auto) 0.6, Sodium Level 138, Potassium Level 3.7, Chloride Level 96L, Carbon Dioxide Level 24, Anion Gap 18H, Blood Urea Nitrogen 13, Creatinine 0.9, Estimat Glomerular Filtration Rate > 60, Glucose Level 77, Calcium Level 9.4 Current Medications Medications (Trade) Dose Ordered Sig/Van Route PRN Reason Start Time Stop Time Status Last Admin Dose Admin Acetaminophen (Tylenol) 650 mg Q4H PRN ORAL T>100.5 10/12/16 23:00 11/11/16 22:59 10/15/16 08:37 Amlodipine Besylate (Norvasc) 5 mg DAILY ORAL 10/13/16 09:00 11/12/16 08:59 10/15/16 08:36 Aripiprazole (Abilify) 30 mg BEDTIME ORAL 10/13/16 21:00 11/12/16 20:59 10/14/16 21:11 Dextrose (Dextrose 50%) STAT PRN IV Hypoglycemia 10/13/16 07:00 11/12/16 06:59 Diphenoxylate HCl/ Atropine (Lomotil) 2.5 mg Q4H PRN ORAL Diarrhea 10/13/16 23:30 11/12/16 23:29 10/14/16 00:15 Gabapentin (Neurontin) 300 mg BID ORAL 10/13/16 09:00 11/12/16 08:59 10/15/16 08:37 Heparin Sodium (Porcine) (Heparin 5000 units/ml) 5,000 units EVERY 12 HOURS SUBQ 10/13/16 09:00 11/12/16 08:59 10/15/16 08:38 Insulin Aspart (NovoLOG) BEFORE MEALS AND HS SUBQ 10/13/16 06:30 11/12/16 06:29 10/15/16 12:09 Ondansetron HCl (Zofran) 4 mg Q6H PRN IVP Nausea & Vomiting 10/13/16 01:00 11/12/16 00:59 Polyethylene Glycol (Miralax) 17 gm DAILYPRN PRN ORAL Constipation 10/13/16 07:00 11/12/16 06:59 Sucralfate (Carafate) 1 gm FOUR TIMES A DAY ORAL 10/13/16 09:00 11/12/16 08:59 10/15/16 12:06 Tamsulosin HCl (Flomax) 0.4 mg DAILY ORAL 10/13/16 09:00 11/12/16 08:59 10/15/16 08:36 Temazepam (Restoril) 15 mg HSPRN PRN ORAL Insomnia 10/13/16 21:00 10/20/16 20:59 10/15/16 02:24 Trazodone HCl (Desyrel) 150 mg BEDTIME ORAL 10/13/16 21:00 11/12/16 20:59 10/14/16 21:09 Vancomycin HCl (Vanco rx to dose) 1 ea DAILY PRN MISC Per rx protocol 10/13/16 09:00 11/12/16 08:59 Vancomycin HCl/ Dextrose (Vancomycin/D5W) 275 ml @ 183.708 mls/hr Q12HR@0200,1400 IVPB 10/13/16 02:00 10/18/16 01:59 10/15/16 13:19 [place] [facility])Melody NP Oct 15, 2016 14:16
--- NOTE | 2016-10-15 17:35 | Internal Med Progress Note ---
Subjective Date of Service: Oct 15, 2016 Physician Name Gopal Musa Attending Physician Monty Irwin MD Current Medications Medications (Trade) Dose Ordered Sig/Van Route PRN Reason Start Time Stop Time Status Last Admin Dose Admin Acetaminophen (Tylenol) 650 mg Q4H PRN ORAL T>100.5 10/12/16 23:00 11/11/16 22:59 10/15/16 15:24 Amlodipine Besylate (Norvasc) 5 mg DAILY ORAL 10/13/16 09:00 11/12/16 08:59 10/15/16 08:36 Aripiprazole (Abilify) 30 mg BEDTIME ORAL 10/13/16 21:00 11/12/16 20:59 10/14/16 21:11 Dextrose (Dextrose 50%) STAT PRN IV Hypoglycemia 10/13/16 07:00 11/12/16 06:59 Diphenoxylate HCl/ Atropine (Lomotil) 2.5 mg Q4H PRN ORAL Diarrhea 10/13/16 23:30 11/12/16 23:29 10/14/16 00:15 Gabapentin (Neurontin) 300 mg BID ORAL 10/13/16 09:00 11/12/16 08:59 10/15/16 17:02 Heparin Sodium (Porcine) (Heparin 5000 units/ml) 5,000 units EVERY 12 HOURS SUBQ 10/13/16 09:00 11/12/16 08:59 10/15/16 08:38 Insulin Aspart (NovoLOG) BEFORE MEALS AND HS SUBQ 10/13/16 06:30 11/12/16 06:29 10/15/16 17:05 Ondansetron HCl (Zofran) 4 mg Q6H PRN IVP Nausea & Vomiting 10/13/16 01:00 11/12/16 00:59 Polyethylene Glycol (Miralax) 17 gm DAILYPRN PRN ORAL Constipation 10/13/16 07:00 11/12/16 06:59 Sucralfate (Carafate) 1 gm FOUR TIMES A DAY ORAL 10/13/16 09:00 11/12/16 08:59 10/15/16 17:02 Tamsulosin HCl (Flomax) 0.4 mg DAILY ORAL 10/13/16 09:00 11/12/16 08:59 10/15/16 08:36 Temazepam (Restoril) 15 mg HSPRN PRN ORAL Insomnia 10/13/16 21:00 10/20/16 20:59 10/15/16 02:24 Trazodone HCl (Desyrel) 150 mg BEDTIME ORAL 10/13/16 21:00 11/12/16 20:59 10/14/16 21:09 Vancomycin HCl (Vanco rx to dose) 1 ea DAILY PRN MISC Per rx protocol 10/13/16 09:00 11/12/16 08:59 Vancomycin HCl/ Dextrose (Vancomycin/D5W) 275 ml @ 183.708 mls/hr Q12HR@0200,1400 IVPB 10/13/16 02:00 10/18/16 01:59 10/15/16 13:19 Allergies: Coded Allergies: No Known Allergies (Unverified , 10/07/16) ROS Limited/Unobtainable: No Constitutional: Reports: no symptoms HEENT: Reports: no symptoms Cardiovascular: Reports: no symptoms Respiratory: Reports: cough, shortness of breath Gastrointestinal/Abdominal: Reports: no symptoms Neurologic/Psychiatric: Reports: no symptoms Subjective 51 YO M admitted with respiratory distress, now pneumonia Currently tolerating room air. Cover for Int Med-Dr Irwin. Objective Last Vital Signs Date Time Temp Pulse Resp B/P Pulse Ox O2 Delivery O2 Flow Rate FiO2 10/15/16 15:56 96.1 81 20 143/80 95 Room Air 10/15/16 11:51 4.0 36 Laboratory Tests Test 10/15/16 06:05 White Blood Count 10.3 K/UL (4.8-10.8) Red Blood Count 4.20 M/UL (4.70-6.10) L Hemoglobin 12.3 G/DL (14.2-18.0) L Hematocrit 35.3 % (42.0-52.0) L Mean Corpuscular Volume 84 FL (80-99) Mean Corpuscular Hemoglobin 29.2 PG (27.0-31.0) Mean Corpuscular Hemoglobin Concent 34.7 G/DL (32.0-36.0) Red Cell Distribution Width 12.6 % (11.6-14.8) Platelet Count 404 K/UL (150-450) Mean Platelet Volume 5.6 FL (6.5-10.1) L Neutrophils (%) (Auto) 71.4 % (45.0-75.0) Lymphocytes (%) (Auto) 17.7 % (20.0-45.0) L Monocytes (%) (Auto) 7.8 % (1.0-10.0) Eosinophils (%) (Auto) 2.6 % (0.0-3.0) Basophils (%) (Auto) 0.6 % (0.0-2.0) Sodium Level 138 mEQ/L (135-145) Potassium Level 3.7 mEQ/L (3.4-4.9) Chloride Level 96 mEQ/L (98-107) L Carbon Dioxide Level 24 mEQ/L (20-30) Anion Gap 18 (5-15) H Blood Urea Nitrogen 13 mg/dL (7-23) Creatinine 0.9 mg/dL (0.7-1.2) Estimat Glomerular Filtration Rate > 60 mL/min (>60) Glucose Level 77 mg/dL (74-106) Calcium Level 9.4 mg/dL (8.6-10.2) Microbiology Date/Time Source Procedure Growth Status 10/13/16 09:22 Sputum AFB Specimen Processing Tissue - Final Resulted 10/13/16 09:22 Sputum Acid Fast Bacilli Smear - Final Resulted 10/13/16 09:22 Sputum Acid Fast Bacilli Culture Pending Resulted Intake and Output 10/14/16 10/15/16 19:00 07:00 Intake Total 1437.500 ml 657.500 ml Balance 1437.500 ml 657.500 ml Intake Oral 1080 ml 300 ml IV Total 357.500 ml 357.500 ml # Voids 6 3 # Bowel Movements 3 3 Objective General Appearance: WD/WN, no apparent distress, alert EENT: PERRL/EOMI, normal ENT inspection, TMs normal Neck: non-tender, normal alignment, supple Cardiovascular: normal peripheral pulses, normal rate, regular rhythm, no gallop/murmur, no JVD Respiratory/Chest: Nasal canula; respiratory distress, crackles/rales, rhonchi - bilaterally, expiratory wheezing Abdomen: normal bowel sounds, non tender, soft, no organomegaly, no mass Extremities: normal range of motion 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 Tolerating nasal canula. (3) COPD with acute exacerbation (4) Pneumonia Assessment & Plan: Bilateral. See ID and pulmonary note. Cont vanco and zosyn. PPD neg. Await sputum acid fast culture results. (5) Hypertension Assessment & Plan: Cont amlodipine. (6) Diabetes mellitus Assessment & Plan: Cont novolog sliding scale. (7) Hypercholesteremia (8) Anemia (9) PTSD (post-traumatic stress disorder) Status: progressing GOPAL MUSA Oct 15, 2016 17:35
[2016-10-15] MEDS: TraZODone 100mg tab ORAL SCH (21:11)
[2016-10-16] VITALS (8 sets, daily range): BP systolic 130–157; BP diastolic 76–94
[2016-10-16] MEDS: Vancomycin 1.25 GM in D5W 275 ML IVPB SCH ×2 (02:24→15:06)
[2016-10-16] MEDS: NovoLOG Insulin Flexpen SUBQ SCH ×4 (06:23→21:00)
[2016-10-16] MEDS: Tamsulosin 0.4mg cap ORAL SCH (09:02)
[2016-10-16] MEDS: Sucralfate 1gm tab ORAL SCH ×4 (09:03→21:15)
[2016-10-16] MEDS: Heparin 5000 units/ml inj SUBQ SCH ×2 (09:09→21:22)
--- NOTE | 2016-10-16 10:30 | Infectious Diseases Prog Note ---
Assessment/Plan Assessment/Plan ASSESSMENT: 51-year-old male with: Pneumonia RO TB - SCx Serratia,and MRSA, AFB smear(-) x2 / 3, PCR pending - Histoplasma(+) 1:8 ?significance - CXR 10/13: interim marked improvement of previously demonstrated interstitial disease. Some residual disease is present at the right lung base - CT Chest 10/07: Extensive diffuse bilateral pulmonary groundglass opacities - negative: T-spot, CrAg, blastomyces Negative HIV Negative C.difficile Leukocytosis, mild - resolved Low grade fever - resolved COPD exacerbation Elevated ESR, CRP Diabetes. History of psychiatric disorder. BPH. NKDA Full Code PLAN: continue IV vancomycin d# . ( 10/14 SP Zosyn d# ) f/u final cultures Monitor CBC, temperatures Monitor BMP. Monitor chest x-ray. sputum AFB x 1:P [place] iso Subjective Allergies: Coded Allergies: No Known Allergies (Unverified , 10/07/16) Subjective remains afebrile. no new complaint Objective Vital Signs Last 24 Hour Vital Signs Date Time Temp Pulse Resp B/P Pulse Ox O2 Delivery O2 Flow Rate FiO2 10/16/16 09:03 65 140/79 10/16/16 08:00 98.2 77 19 135/80 100 Nasal Cannula 10/16/16 04:00 97.0 65 18 140/79 97 10/16/16 02:04 97.9 10/16/16 00:00 97.9 92 20 157/94 95 Room Air 10/15/16 22:12 98.1 84 18 149/86 100 Nasal Cannula 10/15/16 21:34 98.1 84 18 149/86 100 Nasal Cannula 10/15/16 20:10 98 10/15/16 20:10 Room Air 10/15/16 20:00 98.1 84 18 149/86 100 Room Air 10/15/16 15:56 96.1 81 20 143/80 95 Room Air 10/15/16 12:04 97.4 86 20 138/70 99 Room Air 10/15/16 11:51 Nasal Cannula 4.0 36 10/15/16 11:51 99 Nasal Cannula 4.0 36 Height (Feet): 5 Height (Inches): 6.00 Weight (Pounds): 180 General Appearance: no acute distress Respiratory/Chest: no respiratory distress Cardiovascular: normal rate, regular rhythm Abdomen: normal bowel sounds, soft, non tender, non distended Current Medications Medications (Trade) Dose Ordered Sig/Van Route PRN Reason Start Time Stop Time Status Last Admin Dose Admin Acetaminophen (Tylenol) 650 mg Q4H PRN ORAL T>100.5 10/12/16 23:00 11/11/16 22:59 10/16/16 09:03 Amlodipine Besylate (Norvasc) 5 mg DAILY ORAL 10/13/16 09:00 11/12/16 08:59 10/16/16 09:03 Aripiprazole (Abilify) 30 mg BEDTIME ORAL 10/13/16 21:00 11/12/16 20:59 10/15/16 21:11 Dextrose (Dextrose 50%) STAT PRN IV Hypoglycemia 10/13/16 07:00 11/12/16 06:59 Diphenoxylate HCl/ Atropine (Lomotil) 2.5 mg Q4H PRN ORAL Diarrhea 10/13/16 23:30 11/12/16 23:29 10/14/16 00:15 Gabapentin (Neurontin) 300 mg BID ORAL 10/13/16 09:00 11/12/16 08:59 10/16/16 09:02 Heparin Sodium (Porcine) (Heparin 5000 units/ml) 5,000 units EVERY 12 HOURS SUBQ 10/13/16 09:00 11/12/16 08:59 10/16/16 09:09 Insulin Aspart (NovoLOG) BEFORE MEALS AND HS SUBQ 10/13/16 06:30 11/12/16 06:29 10/15/16 17:05 Ondansetron HCl (Zofran) 4 mg Q6H PRN IVP Nausea & Vomiting 10/13/16 01:00 11/12/16 00:59 Polyethylene Glycol (Miralax) 17 gm DAILYPRN PRN ORAL Constipation 10/13/16 07:00 11/12/16 06:59 Sucralfate (Carafate) 1 gm FOUR TIMES A DAY ORAL 10/13/16 09:00 11/12/16 08:59 10/16/16 09:03 Tamsulosin HCl (Flomax) 0.4 mg DAILY ORAL 10/13/16 09:00 11/12/16 08:59 10/16/16 09:02 Temazepam (Restoril) 15 mg HSPRN PRN ORAL Insomnia 10/13/16 21:00 10/20/16 20:59 10/15/16 23:23 Trazodone HCl (Desyrel) 150 mg BEDTIME ORAL 10/13/16 21:00 11/12/16 20:59 10/15/16 21:11 Vancomycin HCl (Vanco rx to dose) 1 ea DAILY PRN MISC Per rx protocol 10/13/16 09:00 11/12/16 08:59 Vancomycin HCl/ Dextrose (Vancomycin/D5W) 275 ml @ 183.708 mls/hr Q12HR@0200,1400 IVPB 10/13/16 02:00 10/18/16 01:59 10/16/16 02:24 JAREK CLARKE 19, 2017 10:30
[2016-10-16] MEDS: Norco 5mg/325mg tab ORAL PRN ×4 (10:52→23:40)
--- NOTE | 2016-10-16 16:28 | Pulmonology Progress Note ---
Assessment/Plan Assessment/Plan ASSESSMENT acute hypoxemic respiratory failure acute COPD exacerbation nicotine addiction anemia of chronic kidney disease hyponatremia PNA acute renal failure -resolved HTN DM psych disorder PLAN OF CARE MS floor O2 HHN prn abx ID follows sputum cx + MRSA, Serratia TB test negative PCR pending fungal serology + Histoplasma Ab with yeast stool C dif negative sputum AFB x 1 negative , need 2 more AFB sputum inflammatory markers severely elevated CT chest with extensive bilateral ground glasses opacities Venous Duplex BLE negative ECHO with EF 55% and RVSP of 21 last CXR with improvement BP management with CCB BS management with SS of insulin DVT prophylaxis continue psych meds renal parameters down to normal likely prerenal , resolved after IV fluids renal US negative hypo Na resolved after IVF , likely depletional case discussed and evaluated by supervising physician Subjective Allergies: Coded Allergies: No Known Allergies (Unverified , 10/07/16) Subjective leukocytosis resolved , afebrile on isolation no signs of respiratory distress denies night sweats, recent weight loss on RA sat stable severely elevated inflammatory markers Objective Last 24 Hour Vital Signs Date Time Temp Pulse Resp B/P Pulse Ox O2 Delivery O2 Flow Rate FiO2 10/16/16 16:10 97.4 10/16/16 12:00 97.4 79 21 130/76 99 Room Air 10/16/16 10:02 97.0 10/16/16 10:01 97.0 10/16/16 09:03 65 140/79 10/16/16 08:00 98.2 77 19 135/80 100 Nasal Cannula 10/16/16 04:00 97.0 65 18 140/79 97 10/16/16 00:00 97.9 92 20 157/94 95 Room Air 10/15/16 22:12 98.1 84 18 149/86 100 Nasal Cannula 10/15/16 21:34 98.1 84 18 149/86 100 Nasal Cannula 10/15/16 20:10 98 10/15/16 20:10 Room Air 10/15/16 20:00 98.1 84 18 149/86 100 Room Air Intake and Output 10/15/16 10/16/16 19:00 07:00 Intake Total 575.000 ml 1080 ml Balance 575.000 ml 1080 ml Intake Oral 300 ml 1080 ml IV Total 275.000 ml # Voids 2 5 Objective General Appearance: WD/WN, no apparent distress, awake, alert, responsive EENT: PERRL/EOMI, Neck: non-tender, supple Cardiovascular: normal peripheral pulses, normal rate, regular rhythm, no gallop/murmur, no JVD Respiratory/Chest: few scattered rhonchi - bilaterally Abdomen: normal bowel sounds, non tender, soft, Extremities: normal range of motion 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, no motor/sensory deficits Skin: warm/dry Laboratory Tests 10/16/16 13:30: Vancomycin Level Trough 12.2H Current Medications Medications (Trade) Dose Ordered Sig/Van Route PRN Reason Start Time Stop Time Status Last Admin Dose Admin Acetaminophen (Tylenol) 650 mg Q4H PRN ORAL T>100.5 10/12/16 23:00 11/11/16 22:59 10/16/16 09:03 Acetaminophen/ Hydrocodone Bitart ([place] 5/325) 1 tab Q4H PRN ORAL Moderate Pain (Pain Scale 4-6) 10/16/16 10:45 10/23/16 10:44 10/16/16 15:11 Amlodipine Besylate (Norvasc) 5 mg DAILY ORAL 10/13/16 09:00 11/12/16 08:59 10/16/16 09:03 Aripiprazole (Abilify) 30 mg BEDTIME ORAL 10/13/16 21:00 11/12/16 20:59 10/15/16 21:11 Dextrose (Dextrose 50%) STAT PRN IV Hypoglycemia 10/13/16 07:00 11/12/16 06:59 Diphenoxylate HCl/ Atropine (Lomotil) 2.5 mg Q4H PRN ORAL Diarrhea 10/13/16 23:30 11/12/16 23:29 10/14/16 00:15 Gabapentin (Neurontin) 300 mg BID ORAL 10/13/16 09:00 11/12/16 08:59 10/16/16 09:02 Heparin Sodium (Porcine) (Heparin 5000 units/ml) 5,000 units EVERY 12 HOURS SUBQ 10/13/16 09:00 11/12/16 08:59 10/16/16 09:09 Insulin Aspart (NovoLOG) BEFORE MEALS AND HS SUBQ 10/13/16 06:30 11/12/16 06:29 10/16/16 11:30 Ondansetron HCl (Zofran) 4 mg Q6H PRN IVP Nausea & Vomiting 10/13/16 01:00 11/12/16 00:59 Polyethylene Glycol (Miralax) 17 gm DAILYPRN PRN ORAL Constipation 10/13/16 07:00 11/12/16 06:59 Sucralfate (Carafate) 1 gm FOUR TIMES A DAY ORAL 10/13/16 09:00 11/12/16 08:59 10/16/16 13:27 Tamsulosin HCl (Flomax) 0.4 mg DAILY ORAL 10/13/16 09:00 11/12/16 08:59 10/16/16 09:02 Temazepam (Restoril) 15 mg HSPRN PRN ORAL Insomnia 10/13/16 21:00 10/20/16 20:59 10/15/16 23:23 Trazodone HCl (Desyrel) 150 mg BEDTIME ORAL 10/13/16 21:00 11/12/16 20:59 10/15/16 21:11 Vancomycin HCl (Vanco rx to dose) 1 ea DAILY PRN MISC Per rx protocol 10/13/16 09:00 11/12/16 08:59 Vancomycin HCl/ Dextrose (Vancomycin/D5W) 275 ml @ 183.708 mls/hr Q12HR@0200,1400 IVPB 10/13/16 02:00 10/18/16 01:59 10/16/16 15:06 Melody Schafer NP ([place]) Oct 16, 2016 16:28
--- NOTE | 2016-10-16 17:23 | Internal Med Progress Note ---
Subjective Date of Service: Oct 16, 2016 Physician Name Justin Musa Attending Physician Monty Irwin MD Current Medications Medications (Trade) Dose Ordered Sig/Van Route PRN Reason Start Time Stop Time Status Last Admin Dose Admin Acetaminophen (Tylenol) 650 mg Q4H PRN ORAL T>100.5 10/12/16 23:00 11/11/16 22:59 10/16/16 09:03 Acetaminophen/ Hydrocodone Bitart ([place] 5/325) 1 tab Q4H PRN ORAL Moderate Pain (Pain Scale 4-6) 10/16/16 10:45 10/23/16 10:44 10/16/16 15:11 Amlodipine Besylate (Norvasc) 5 mg DAILY ORAL 10/13/16 09:00 11/12/16 08:59 10/16/16 09:03 Aripiprazole (Abilify) 30 mg BEDTIME ORAL 10/13/16 21:00 11/12/16 20:59 10/15/16 21:11 Dextrose (Dextrose 50%) STAT PRN IV Hypoglycemia 10/13/16 07:00 11/12/16 06:59 Diphenoxylate HCl/ Atropine (Lomotil) 2.5 mg Q4H PRN ORAL Diarrhea 10/13/16 23:30 11/12/16 23:29 10/14/16 00:15 Gabapentin (Neurontin) 300 mg BID ORAL 10/13/16 09:00 11/12/16 08:59 10/16/16 16:38 Heparin Sodium (Porcine) (Heparin 5000 units/ml) 5,000 units EVERY 12 HOURS SUBQ 10/13/16 09:00 11/12/16 08:59 10/16/16 09:09 Insulin Aspart (NovoLOG) BEFORE MEALS AND HS SUBQ 10/13/16 06:30 11/12/16 06:29 10/16/16 16:42 Ondansetron HCl (Zofran) 4 mg Q6H PRN IVP Nausea & Vomiting 10/13/16 01:00 11/12/16 00:59 Polyethylene Glycol (Miralax) 17 gm DAILYPRN PRN ORAL Constipation 10/13/16 07:00 11/12/16 06:59 Sucralfate (Carafate) 1 gm FOUR TIMES A DAY ORAL 10/13/16 09:00 11/12/16 08:59 10/16/16 16:38 Tamsulosin HCl (Flomax) 0.4 mg DAILY ORAL 10/13/16 09:00 11/12/16 08:59 10/16/16 09:02 Temazepam (Restoril) 15 mg HSPRN PRN ORAL Insomnia 10/13/16 21:00 10/20/16 20:59 10/15/16 23:23 Trazodone HCl (Desyrel) 150 mg BEDTIME ORAL 10/13/16 21:00 11/12/16 20:59 10/15/16 21:11 Vancomycin HCl (Vanco rx to dose) 1 ea DAILY PRN MISC Per rx protocol 10/13/16 09:00 11/12/16 08:59 Vancomycin HCl/ Dextrose (Vancomycin/D5W) 275 ml @ 183.708 mls/hr Q12HR@0200,1400 IVPB 10/13/16 02:00 10/18/16 01:59 10/16/16 15:06 Allergies: Coded Allergies: No Known Allergies (Unverified , 10/07/16) ROS Limited/Unobtainable: No Constitutional: Reports: no symptoms HEENT: Reports: no symptoms Cardiovascular: Reports: no symptoms Respiratory: Reports: cough, shortness of breath Gastrointestinal/Abdominal: Reports: no symptoms Genitourinary: Reports: no symptoms Neurologic/Psychiatric: Reports: no symptoms Subjective 51 YO M admitted with respiratory distress, now pneumonia Currently tolerating room air. Cover for Int Alexander-Dr Iwrin. Objective Last Vital Signs Date Time Temp Pulse Resp B/P Pulse Ox O2 Delivery O2 Flow Rate FiO2 10/16/16 16:10 97.4 10/16/16 12:00 79 21 130/76 99 Room Air 10/15/16 11:51 4.0 36 Laboratory Tests Test 10/16/16 13:30 Vancomycin Level Trough 12.2 ug/mL (5.0-12.0) H Intake and Output 10/15/16 10/16/16 19:00 07:00 Intake Total 575.000 ml 1080 ml Balance 575.000 ml 1080 ml Intake Oral 300 ml 1080 ml IV Total 275.000 ml # Voids 2 5 Objective General Appearance: WD/WN, no apparent distress, alert EENT: PERRL/EOMI, normal ENT inspection, TMs normal Neck: non-tender, normal alignment, supple Cardiovascular: normal peripheral pulses, normal rate, regular rhythm, no gallop/murmur, no JVD Respiratory/Chest: Nasal canula; respiratory distress, crackles/rales, rhonchi - bilaterally, expiratory wheezing Abdomen: normal bowel sounds, non tender, soft, no organomegaly, no mass Extremities: normal range of motion 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 Tolerating nasal canula. (3) COPD with acute exacerbation (4) Pneumonia Assessment & Plan: Bilateral. See ID and pulmonary note. Cont vanco and zosyn. PPD neg. Await sputum acid fast culture results. (5) Hypertension Assessment & Plan: Cont amlodipine. (6) Diabetes mellitus Assessment & Plan: Cont novolog sliding scale. (7) Hypercholesteremia (8) Anemia (9) PTSD (post-traumatic stress disorder) Status: progressing JUSTIN MUSA Oct 16, 2016 17:23
[2016-10-16] MEDS: TraZODone 100mg tab ORAL SCH (21:15)
[2016-10-17] MEDS: Vancomycin 1.25 GM in D5W 275 ML IVPB SCH ×2 (02:04→13:14)
[2016-10-17] MEDS: Norco 5mg/325mg tab ORAL PRN ×4 (03:36→16:22)
[2016-10-17 04:01] VITALS: BP 132/78
[2016-10-17] MEDS: NovoLOG Insulin Flexpen SUBQ SCH ×4 (05:33→20:49)
[2016-10-17 07:54] VITALS: BP 136/72
[2016-10-17] MEDS: Tamsulosin 0.4mg cap ORAL SCH (09:33)
[2016-10-17] MEDS: Sucralfate 1gm tab ORAL SCH ×4 (09:34→20:32)
[2016-10-17] MEDS: Heparin 5000 units/ml inj SUBQ SCH ×2 (09:35→20:49)
[2016-10-17 10:13] LABS: MTB DETECTION NAA Negative (Negative)
--- NOTE | 2016-10-17 10:30 | Infectious Diseases Prog Note ---
Assessment/Plan Assessment/Plan ASSESSMENT: 51-year-old male with: Pneumonia RO TB - SCx Serratia,and MRSA, AFB smear(-) x2 / 3, TB PCR(-) - Histoplasma(+) 1:8 ?significance - CXR 10/13: interim marked improvement of previously demonstrated interstitial disease. Some residual disease is present at the right lung base - CT Chest 10/07: Extensive diffuse bilateral pulmonary groundglass opacities - negative: T-spot, CrAg, blastomyces Negative HIV Negative C.difficile Leukocytosis, mild - resolved Low grade fever - resolved COPD exacerbation Elevated ESR, CRP Diabetes. History of psychiatric disorder. BPH. NKDA Full Code PLAN: continue IV vancomycin d# . ( 10/14 SP Zosyn d# ) f/u final cultures Monitor CBC, temperatures Monitor BMP. Monitor chest x-ray. sputum AFB x 1:P [place] iso Subjective Allergies: Coded Allergies: No Known Allergies (Unverified , 10/07/16) Subjective remains afebrile. no new complaint Objective Vital Signs Last 24 Hour Vital Signs Date Time Temp Pulse Resp B/P Pulse Ox O2 Delivery O2 Flow Rate FiO2 10/17/16 09:33 86 136/72 10/17/16 07:54 97.0 86 20 136/72 97 Room Air 10/17/16 04:35 96.8 10/17/16 04:01 96.8 82 18 132/78 98 Nasal Cannula 2.0 10/16/16 23:59 97.5 82 18 143/84 100 Nasal Cannula 2.0 10/16/16 20:00 97.9 78 18 135/87 96 Nasal Cannula 8.0 10/16/16 17:52 96.8 76 20 141/82 99 Room Air 10/16/16 17:37 96.8 10/16/16 16:00 96.8 76 20 141/82 99 Room Air 10/16/16 12:00 97.4 79 21 130/76 99 Room Air Height (Feet): 5 Height (Inches): 6.00 Weight (Pounds): 180 General Appearance: no acute distress Respiratory/Chest: no respiratory distress Cardiovascular: normal rate, regular rhythm Abdomen: normal bowel sounds, soft, non tender, non distended Laboratory Tests Test 10/16/16 13:30 Vancomycin Level Trough 12.2 ug/mL (5.0-12.0) H Current Medications Medications (Trade) Dose Ordered Sig/Van Route PRN Reason Start Time Stop Time Status Last Admin Dose Admin Acetaminophen (Tylenol) 650 mg Q4H PRN ORAL T>100.5 10/12/16 23:00 11/11/16 22:59 10/16/16 09:03 Acetaminophen/ Hydrocodone Bitart ([place] 5/325) 1 tab Q4H PRN ORAL Moderate Pain (Pain Scale 4-6) 10/16/16 10:45 10/23/16 10:44 10/17/16 07:49 Amlodipine Besylate (Norvasc) 5 mg DAILY ORAL 10/13/16 09:00 11/12/16 08:59 10/17/16 09:33 Aripiprazole (Abilify) 30 mg BEDTIME ORAL 10/13/16 21:00 11/12/16 20:59 10/16/16 21:15 Dextrose (Dextrose 50%) STAT PRN IV Hypoglycemia 10/13/16 07:00 11/12/16 06:59 Diphenoxylate HCl/ Atropine (Lomotil) 2.5 mg Q4H PRN ORAL Diarrhea 10/13/16 23:30 11/12/16 23:29 10/14/16 00:15 Gabapentin (Neurontin) 300 mg BID ORAL 10/13/16 09:00 11/12/16 08:59 10/17/16 09:34 Heparin Sodium (Porcine) (Heparin 5000 units/ml) 5,000 units EVERY 12 HOURS SUBQ 10/13/16 09:00 11/12/16 08:59 10/17/16 09:35 Insulin Aspart (NovoLOG) BEFORE MEALS AND HS SUBQ 10/13/16 06:30 11/12/16 06:29 10/17/16 05:33 Ondansetron HCl (Zofran) 4 mg Q6H PRN IVP Nausea & Vomiting 10/13/16 01:00 11/12/16 00:59 Polyethylene Glycol (Miralax) 17 gm DAILYPRN PRN ORAL Constipation 10/13/16 07:00 11/12/16 06:59 Sucralfate (Carafate) 1 gm FOUR TIMES A DAY ORAL 10/13/16 09:00 11/12/16 08:59 10/17/16 09:34 Tamsulosin HCl (Flomax) 0.4 mg DAILY ORAL 10/13/16 09:00 11/12/16 08:59 10/17/16 09:33 Temazepam (Restoril) 15 mg HSPRN PRN ORAL Insomnia 10/13/16 21:00 10/20/16 20:59 10/16/16 21:16 Trazodone HCl (Desyrel) 150 mg BEDTIME ORAL 10/13/16 21:00 11/12/16 20:59 10/16/16 21:15 Vancomycin HCl (Vanco rx to dose) 1 ea DAILY PRN MISC Per rx protocol 10/13/16 09:00 11/12/16 08:59 Vancomycin HCl/ Dextrose (Vancomycin/D5W) 275 ml @ 183.708 mls/hr Q12HR@0200,1400 IVPB 10/13/16 02:00 10/18/16 01:59 10/17/16 02:04 JAREK CLARKE 20, 2017 10:30
[2016-10-17 11:03] LABS: BASOPHILS % (AUTO) 0.6 % (0.0-2.0); LYMPHOCYTES % (AUTO) 13.4 % (20.0-45.0); MEAN CORPUSCULAR HEMOGLOBIN 28.6 PG (27.0-31.0); MEAN CORPUSCULAR HGB CONC 33.9 G/DL (32.0-36.0); MEAN CORPUSCULAR VOLUME 84 FL (80-99); MEAN PLATELET VOLUME 6.2 FL (6.5-10.1); MONOCYTES % (AUTO) 5.9 % (1.0-10.0); NEUTROPHILS % (AUTO) 79.2 % (45.0-75.0); PLATELET COUNT 501 K/UL (150-450); RED BLOOD COUNT 4.29 M/UL (4.70-6.10); RED CELL DISTRIBUTION WIDTH 12.6 % (11.6-14.8)
[2016-10-17 11:26] VITALS: BP 135/79
[2016-10-17 11:29] LABS: ANION GAP 18 (5-15); CALCIUM 9.8 mg/dL (8.6-10.2); CARBON DIOXIDE 25 mEQ/L (20-30); CHLORIDE 96 mEQ/L (98-107); CREATININE 0.8 mg/dL (0.7-1.2); GLOMERULAR FILTRATION RATE > 60 mL/min (>60); HEMOLYSIS 1; POTASSIUM 3.9 mEQ/L (3.4-4.9); SODIUM 139 mEQ/L (135-145)
[2016-10-17 16:00] VITALS: BP 141/79
--- NOTE | 2016-10-17 18:11 | Pulmonology Progress Note ---
Assessment/Plan Problems: (1) Interstitial pneumonitis Assessment & Plan: lymphocyte predominance persists (2) Respiratory failure with hypoxia Assessment & Plan: resolved (3) Multiple nodules of lung (4) Hyponatremia (5) Anemia in chronic kidney disease (CKD) (6) COPD with acute exacerbation (7) Nicotine addiction Assessment/Plan mrsa in sputum clinically continues to improve continue antibiotics respiratory treatment f/u electrolytes check sputum add carafate po for epigastric pain PPD was negative cxr improving doubt TB, since pt responded to antibacterial regimen Subjective ROS Limited/Unobtainable: No Interval Events: n new complains Allergies: Coded Allergies: No Known Allergies (Unverified , 10/07/16) Objective Last 24 Hour Vital Signs Date Time Temp Pulse Resp B/P Pulse Ox O2 Delivery O2 Flow Rate FiO2 10/17/16 16:00 97.3 90 20 141/79 93 Nasal Cannula 3.0 10/17/16 11:26 97.9 85 19 135/79 98 Room Air 10/17/16 09:33 86 136/72 10/17/16 07:54 97.0 86 20 136/72 97 Room Air 10/17/16 04:35 96.8 10/17/16 04:01 96.8 82 18 132/78 98 Nasal Cannula 2.0 10/16/16 23:59 97.5 82 18 143/84 100 Nasal Cannula 2.0 10/16/16 20:00 97.9 78 18 135/87 96 Nasal Cannula 8.0 Intake and Output 10/16/16 10/17/16 19:00 07:00 Intake Total 995 ml 615.000 ml Output Total 600 ml Balance 995 ml 15.000 ml Intake Oral 720 ml 340 ml IV Total 275 ml 275.000 ml Output Urine Total 600 ml # Voids 2 Objective General Appearance: WD/WN, no acute distress HEENT: normocephalic, anicteric Respiratory/Chest: chest wall non-tender, decreased breath sounds, positive rhonchi Cardiovascular: normal peripheral pulses, normal rate Abdomen: normal bowel sounds, soft, non tender Genitourinary: normal external genitalia Extremities: no cyanosis Skin: no rash 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 Lymphatic: no neck adenopathy Laboratory Tests 10/17/16 10:25: White Blood Count 13.0H, Red Blood Count 4.29L, Hemoglobin 12.3L, Hematocrit 36.2L, Mean Corpuscular Volume 84, Mean Corpuscular Hemoglobin 28.6, Mean Corpuscular Hemoglobin Concent 33.9, Red Cell Distribution Width 12.6, Platelet Count 501H, Mean Platelet Volume 6.2L, Neutrophils (%) (Auto) 79.2H, Lymphocytes (%) (Auto) 13.4L, Monocytes (%) (Auto) 5.9, Eosinophils (%) (Auto) 1.0, Basophils (%) (Auto) 0.6, Sodium Level 139, Potassium Level 3.9, Chloride Level 96L, Carbon Dioxide Level 25, Anion Gap 18H, Blood Urea Nitrogen 14, Creatinine 0.8, Estimat Glomerular Filtration Rate > 60, Glucose Level 125H, Calcium Level 9.8 Current Medications Medications (Trade) Dose Ordered Sig/Van Route PRN Reason Start Time Stop Time Status Last Admin Dose Admin Acetaminophen (Tylenol) 650 mg Q4H PRN ORAL T>100.5 10/12/16 23:00 11/11/16 22:59 10/16/16 09:03 Acetaminophen/ Hydrocodone Bitart ([place] 5/325) 1 tab Q4H PRN ORAL Moderate Pain (Pain Scale 4-6) 10/16/16 10:45 10/23/16 10:44 10/17/16 16:22 Amlodipine Besylate (Norvasc) 5 mg DAILY ORAL 10/13/16 09:00 11/12/16 08:59 10/17/16 09:33 Aripiprazole (Abilify) 30 mg BEDTIME ORAL 10/13/16 21:00 11/12/16 20:59 10/16/16 21:15 Dextrose (Dextrose 50%) STAT PRN IV Hypoglycemia 10/13/16 07:00 11/12/16 06:59 Diphenoxylate HCl/ Atropine (Lomotil) 2.5 mg Q4H PRN ORAL Diarrhea 10/13/16 23:30 11/12/16 23:29 10/14/16 00:15 Gabapentin (Neurontin) 300 mg BID ORAL 10/13/16 09:00 11/12/16 08:59 10/17/16 17:27 Heparin Sodium (Porcine) (Heparin 5000 units/ml) 5,000 units EVERY 12 HOURS SUBQ 10/13/16 09:00 11/12/16 08:59 10/17/16 09:35 Insulin Aspart (NovoLOG) BEFORE MEALS AND HS SUBQ 10/13/16 06:30 11/12/16 06:29 10/17/16 17:36 Ondansetron HCl (Zofran) 4 mg Q6H PRN IVP Nausea & Vomiting 10/13/16 01:00 11/12/16 00:59 Polyethylene Glycol (Miralax) 17 gm DAILYPRN PRN ORAL Constipation 10/13/16 07:00 11/12/16 06:59 Sucralfate (Carafate) 1 gm FOUR TIMES A DAY ORAL 10/13/16 09:00 11/12/16 08:59 10/17/16 17:26 Tamsulosin HCl (Flomax) 0.4 mg DAILY ORAL 10/13/16 09:00 11/12/16 08:59 10/17/16 09:33 Temazepam (Restoril) 15 mg HSPRN PRN ORAL Insomnia 10/13/16 21:00 10/20/16 20:59 10/16/16 21:16 Trazodone HCl (Desyrel) 150 mg BEDTIME ORAL 10/13/16 21:00 11/12/16 20:59 10/16/16 21:15 Vancomycin HCl (Vanco rx to dose) 1 ea DAILY PRN MISC Per rx protocol 10/13/16 09:00 11/12/16 08:59 Vancomycin HCl/ Dextrose (Vancomycin/D5W) 275 ml @ 183.708 mls/hr Q12HR@0200,1400 IVPB 10/13/16 02:00 10/22/16 01:59 10/17/16 13:14 ANDRESSA CRAIG Oct 17, 2016 18:11
--- NOTE | 2016-10-17 19:12 | Internal Med Progress Note ---
Subjective Date of Service: Oct 17, 2016 Physician Name Justin Musa Attending Physician Monty Irwin MD Current Medications Medications (Trade) Dose Ordered Sig/Van Route PRN Reason Start Time Stop Time Status Last Admin Dose Admin Acetaminophen (Tylenol) 650 mg Q4H PRN ORAL T>100.5 10/12/16 23:00 11/11/16 22:59 10/16/16 09:03 Acetaminophen/ Hydrocodone Bitart ([place] 10/325) 1 ea Q6HR PRN ORAL For Pain 10/17/16 19:00 10/24/16 18:59 UNV Amlodipine Besylate (Norvasc) 5 mg DAILY ORAL 10/13/16 09:00 11/12/16 08:59 10/17/16 09:33 Aripiprazole (Abilify) 30 mg BEDTIME ORAL 10/13/16 21:00 11/12/16 20:59 10/16/16 21:15 Cyclobenzaprine HCl (Flexeril) 10 mg THREE TIMES A DAY ORAL 10/17/16 19:00 11/16/16 18:59 UNV Dextrose (Dextrose 50%) STAT PRN IV Hypoglycemia 10/13/16 07:00 11/12/16 06:59 Diphenoxylate HCl/ Atropine (Lomotil) 2.5 mg Q4H PRN ORAL Diarrhea 10/13/16 23:30 11/12/16 23:29 10/14/16 00:15 Gabapentin (Neurontin) 300 mg BID ORAL 10/13/16 09:00 11/12/16 08:59 10/17/16 17:27 Heparin Sodium (Porcine) (Heparin 5000 units/ml) 5,000 units EVERY 12 HOURS SUBQ 10/13/16 09:00 11/12/16 08:59 10/17/16 09:35 Insulin Aspart (NovoLOG) BEFORE MEALS AND HS SUBQ 10/13/16 06:30 11/12/16 06:29 10/17/16 17:36 Ondansetron HCl (Zofran) 4 mg Q6H PRN IVP Nausea & Vomiting 10/13/16 01:00 11/12/16 00:59 Polyethylene Glycol (Miralax) 17 gm DAILYPRN PRN ORAL Constipation 10/13/16 07:00 11/12/16 06:59 Sucralfate (Carafate) 1 gm FOUR TIMES A DAY ORAL 10/13/16 09:00 11/12/16 08:59 10/17/16 17:26 Tamsulosin HCl (Flomax) 0.4 mg DAILY ORAL 10/13/16 09:00 11/12/16 08:59 10/17/16 09:33 Temazepam (Restoril) 15 mg HSPRN PRN ORAL Insomnia 10/13/16 21:00 10/20/16 20:59 10/16/16 21:16 Trazodone HCl (Desyrel) 150 mg BEDTIME ORAL 10/13/16 21:00 11/12/16 20:59 10/16/16 21:15 Vancomycin HCl (Vanco rx to dose) 1 ea DAILY PRN MISC Per rx protocol 10/13/16 09:00 11/12/16 08:59 Vancomycin HCl/ Dextrose (Vancomycin/D5W) 275 ml @ 183.708 mls/hr Q12HR@0200,1400 IVPB 10/13/16 02:00 10/22/16 01:59 10/17/16 13:14 Allergies: Coded Allergies: No Known Allergies (Unverified , 10/07/16) ROS Limited/Unobtainable: No Constitutional: Reports: no symptoms HEENT: Reports: no symptoms Cardiovascular: Reports: no symptoms Respiratory: Reports: cough, shortness of breath Gastrointestinal/Abdominal: Reports: no symptoms Genitourinary: Reports: no symptoms Neurologic/Psychiatric: Reports: no symptoms Subjective 51 YO M admitted with respiratory distress, now pneumonia Currently tolerating nasal canula. Cover for [facility] Irwin. Objective Last Vital Signs Date Time Temp Pulse Resp B/P Pulse Ox O2 Delivery O2 Flow Rate FiO2 10/17/16 16:00 97.3 90 20 141/79 93 Nasal Cannula 3.0 10/15/16 11:51 36 Laboratory Tests Test 10/17/16 10:25 White Blood Count 13.0 K/UL (4.8-10.8) H Red Blood Count 4.29 M/UL (4.70-6.10) L Hemoglobin 12.3 G/DL (14.2-18.0) L Hematocrit 36.2 % (42.0-52.0) L Mean Corpuscular Volume 84 FL (80-99) Mean Corpuscular Hemoglobin 28.6 PG (27.0-31.0) Mean Corpuscular Hemoglobin Concent 33.9 G/DL (32.0-36.0) Red Cell Distribution Width 12.6 % (11.6-14.8) Platelet Count 501 K/UL (150-450) H Mean Platelet Volume 6.2 FL (6.5-10.1) L Neutrophils (%) (Auto) 79.2 % (45.0-75.0) H Lymphocytes (%) (Auto) 13.4 % (20.0-45.0) L Monocytes (%) (Auto) 5.9 % (1.0-10.0) Eosinophils (%) (Auto) 1.0 % (0.0-3.0) Basophils (%) (Auto) 0.6 % (0.0-2.0) Sodium Level 139 mEQ/L (135-145) Potassium Level 3.9 mEQ/L (3.4-4.9) Chloride Level 96 mEQ/L (98-107) L Carbon Dioxide Level 25 mEQ/L (20-30) Anion Gap 18 (5-15) H Blood Urea Nitrogen 14 mg/dL (7-23) Creatinine 0.8 mg/dL (0.7-1.2) Estimat Glomerular Filtration Rate > 60 mL/min (>60) Glucose Level 125 mg/dL (74-106) H Calcium Level 9.8 mg/dL (8.6-10.2) Intake and Output 10/16/16 10/17/16 19:00 07:00 Intake Total 995 ml 615.000 ml Output Total 600 ml Balance 995 ml 15.000 ml Intake Oral 720 ml 340 ml IV Total 275 ml 275.000 ml Output Urine Total 600 ml # Voids 2 Objective General Appearance: WD/WN, no apparent distress, alert EENT: PERRL/EOMI, normal ENT inspection, TMs normal Neck: non-tender, normal alignment, supple Cardiovascular: normal peripheral pulses, normal rate, regular rhythm, no gallop/murmur, no JVD Respiratory/Chest: Nasal canula; respiratory distress, crackles/rales, rhonchi - bilaterally, expiratory wheezing Abdomen: normal bowel sounds, non tender, soft, no organomegaly, no mass Extremities: normal range of motion 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 Tolerating nasal canula. (3) COPD with acute exacerbation (4) Pneumonia Assessment & Plan: Bilateral. See ID and pulmonary note. Cont vanco and zosyn. PPD neg. Await sputum acid fast culture results. (5) Hypertension Assessment & Plan: Cont amlodipine. (6) Diabetes mellitus Assessment & Plan: Cont novolog sliding scale. (7) Hypercholesteremia (8) Anemia (9) PTSD (post-traumatic stress disorder) Status: stable JUSTIN MUSA Oct 17, 2016 19:12
[2016-10-17] MEDS: Cyclobenzaprine 10mg Tab ORAL SCH (19:18)
[2016-10-17 20:00] VITALS: BP 144/85
[2016-10-17] MEDS: Norco 10mg/325mg tab ORAL PRN (20:32)
[2016-10-17] MEDS: TraZODone 100mg tab ORAL SCH (20:32)
--- NOTE | 2016-10-17 23:24 | Pulmonology Progress Note ---
Assessment/Plan Problems: (1) Interstitial pneumonitis Assessment & Plan: lymphocyte predominance persists (2) Respiratory failure with hypoxia Assessment & Plan: resolved (3) Multiple nodules of lung (4) Hyponatremia (5) Anemia in chronic kidney disease (CKD) (6) COPD with acute exacerbation (7) Nicotine addiction Assessment/Plan mrsa in sputum clinically continues to improve continue antibiotics respiratory treatment f/u electrolytes check sputum add carafate po for epigastric pain PPD was negative cxr improving doubt TB, since pt responded to antibacterial regimen Subjective Allergies: Coded Allergies: No Known Allergies (Unverified , 10/07/16) Objective Last 24 Hour Vital Signs Date Time Temp Pulse Resp B/P Pulse Ox O2 Delivery O2 Flow Rate FiO2 10/17/16 20:00 98.6 90 19 144/85 98 Nasal Cannula 3.0 10/17/16 16:00 97.3 90 20 141/79 93 Nasal Cannula 3.0 10/17/16 11:26 97.9 85 19 135/79 98 Room Air 10/17/16 09:33 86 136/72 10/17/16 07:54 97.0 86 20 136/72 97 Room Air 10/17/16 04:35 96.8 10/17/16 04:01 96.8 82 18 132/78 98 Nasal Cannula 2.0 10/16/16 23:59 97.5 82 18 143/84 100 Nasal Cannula 2.0 Intake and Output 10/16/16 10/17/16 19:00 07:00 Intake Total 995 ml 615.000 ml Output Total 600 ml Balance 995 ml 15.000 ml Intake Oral 720 ml 340 ml IV Total 275 ml 275.000 ml Output Urine Total 600 ml # Voids 2 Objective General Appearance: WD/WN, no acute distress HEENT: normocephalic, anicteric Respiratory/Chest: chest wall non-tender, decreased breath sounds, positive rhonchi Cardiovascular: normal peripheral pulses, normal rate Abdomen: normal bowel sounds, soft, non tender Genitourinary: normal external genitalia Extremities: no cyanosis Skin: no rash 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 Lymphatic: no neck adenopathy Laboratory Tests 10/17/16 10:25: White Blood Count 13.0H, Red Blood Count 4.29L, Hemoglobin 12.3L, Hematocrit 36.2L, Mean Corpuscular Volume 84, Mean Corpuscular Hemoglobin 28.6, Mean Corpuscular Hemoglobin Concent 33.9, Red Cell Distribution Width 12.6, Platelet Count 501H, Mean Platelet Volume 6.2L, Neutrophils (%) (Auto) 79.2H, Lymphocytes (%) (Auto) 13.4L, Monocytes (%) (Auto) 5.9, Eosinophils (%) (Auto) 1.0, Basophils (%) (Auto) 0.6, Sodium Level 139, Potassium Level 3.9, Chloride Level 96L, Carbon Dioxide Level 25, Anion Gap 18H, Blood Urea Nitrogen 14, Creatinine 0.8, Estimat Glomerular Filtration Rate > 60, Glucose Level 125H, Calcium Level 9.8 Current Medications Medications (Trade) Dose Ordered Sig/Van Route PRN Reason Start Time Stop Time Status Last Admin Dose Admin Acetaminophen (Tylenol) 650 mg Q4H PRN ORAL T>100.5 10/12/16 23:00 11/11/16 22:59 10/16/16 09:03 Acetaminophen/ Hydrocodone Bitart ([place] 10/325) 1 ea Q6HR PRN ORAL For Pain 10/17/16 19:00 10/24/16 18:59 10/17/16 20:32 Amlodipine Besylate (Norvasc) 5 mg DAILY ORAL 10/13/16 09:00 11/12/16 08:59 10/17/16 09:33 Aripiprazole (Abilify) 30 mg BEDTIME ORAL 10/13/16 21:00 11/12/16 20:59 10/17/16 20:48 Cyclobenzaprine HCl (Flexeril) 10 mg THREE TIMES A DAY ORAL 10/17/16 19:30 11/16/16 19:29 10/17/16 19:18 Dextrose (Dextrose 50%) STAT PRN IV Hypoglycemia 10/13/16 07:00 11/12/16 06:59 Diphenoxylate HCl/ Atropine (Lomotil) 2.5 mg Q4H PRN ORAL Diarrhea 10/13/16 23:30 11/12/16 23:29 10/14/16 00:15 Gabapentin (Neurontin) 300 mg BID ORAL 10/13/16 09:00 11/12/16 08:59 10/17/16 17:27 Heparin Sodium (Porcine) (Heparin 5000 units/ml) 5,000 units EVERY 12 HOURS SUBQ 10/13/16 09:00 11/12/16 08:59 10/17/16 20:49 Insulin Aspart (NovoLOG) BEFORE MEALS AND HS SUBQ 10/13/16 06:30 11/12/16 06:29 10/17/16 20:49 Ondansetron HCl (Zofran) 4 mg Q6H PRN IVP Nausea & Vomiting 10/13/16 01:00 11/12/16 00:59 Polyethylene Glycol (Miralax) 17 gm DAILYPRN PRN ORAL Constipation 10/13/16 07:00 11/12/16 06:59 Sucralfate (Carafate) 1 gm FOUR TIMES A DAY ORAL 10/13/16 09:00 11/12/16 08:59 10/17/16 20:32 Tamsulosin HCl (Flomax) 0.4 mg DAILY ORAL 10/13/16 09:00 11/12/16 08:59 10/17/16 09:33 Temazepam (Restoril) 15 mg HSPRN PRN ORAL Insomnia 10/13/16 21:00 10/20/16 20:59 10/17/16 21:24 Trazodone HCl (Desyrel) 150 mg BEDTIME ORAL 10/13/16 21:00 11/12/16 20:59 10/17/16 20:32 Vancomycin HCl (Vanco rx to dose) 1 ea DAILY PRN MISC Per rx protocol 10/13/16 09:00 11/12/16 08:59 Vancomycin HCl/ Dextrose (Vancomycin/D5W) 275 ml @ 183.708 mls/hr Q12HR@0200,1400 IVPB 10/13/16 02:00 10/22/16 01:59 10/17/16 13:14 ANDRESSA CRAIG Oct 17, 2016 23:24
[2016-10-18] VITALS: BP 139/77
[2016-10-18] MEDS: Vancomycin 1.25 GM in D5W 275 ML IVPB SCH ×2 (01:03→14:47)
[2016-10-18 04:00] VITALS: BP 121/65
[2016-10-18] MEDS: Norco 10mg/325mg tab ORAL PRN ×4 (04:55→22:48)
[2016-10-18] MEDS: NovoLOG Insulin Flexpen SUBQ SCH ×4 (06:06→21:10)
[2016-10-18 07:12] LABS: BASOPHILS % (AUTO) 0.8 % (0.0-2.0); EOSINOPHILS % (AUTO) 2.1 % (0.0-3.0); MEAN CORPUSCULAR HEMOGLOBIN 28.3 PG (27.0-31.0); MEAN CORPUSCULAR HGB CONC 33.7 G/DL (32.0-36.0); MEAN CORPUSCULAR VOLUME 84 FL (80-99); MEAN PLATELET VOLUME 5.3 FL (6.5-10.1); MONOCYTES % (AUTO) 8.7 % (1.0-10.0); NEUTROPHILS % (AUTO) 60.4 % (45.0-75.0); PLATELET COUNT 473 K/UL (150-450); RED CELL DISTRIBUTION WIDTH 12.4 % (11.6-14.8); WHITE BLOOD COUNT 8.3 K/UL (4.8-10.8)
[2016-10-18 07:30] LABS: ALANINE AMINOTRANSFERASE 154 U/L (3-41); ALBUMIN/GLOBULIN RATIO 0.8 (1.0-2.7); ANION GAP 15 (5-15); ASPARTATE AMINO TRANSFERASE 196 U/L (5-40); CALCIUM 9.6 mg/dL (8.6-10.2); CARBON DIOXIDE 27 mEQ/L (20-30); CHLORIDE 97 mEQ/L (98-107); CREATININE 0.8 mg/dL (0.7-1.2); GLOMERULAR FILTRATION RATE > 60 mL/min (>60); HEMOLYSIS 0; POTASSIUM 3.5 mEQ/L (3.4-4.9); SODIUM 139 mEQ/L (135-145); TOTAL PROTEIN 7.4 g/dL (6.6-8.7)
[2016-10-18 08:00] VITALS: BP 133/79
[2016-10-18] MEDS: Sucralfate 1gm tab ORAL SCH ×4 (08:09→21:11)
[2016-10-18] MEDS: Tamsulosin 0.4mg cap ORAL SCH (08:11)
[2016-10-18] MEDS: Heparin 5000 units/ml inj SUBQ SCH ×2 (08:13→21:10)
[2016-10-18] MEDS: Cyclobenzaprine 10mg Tab ORAL SCH ×3 (08:15→18:12)
--- NOTE | 2016-10-18 10:44 | Infectious Diseases Prog Note ---
Assessment/Plan Assessment/Plan ASSESSMENT: 51-year-old male with: Pneumonia RO TB - SCx Serratia,and MRSA, AFB smear(-) x2 / 3, TB PCR(-) - Histoplasma(+) 1:8 ?significance - CXR 10/13: interim marked improvement of previously demonstrated interstitial disease. Some residual disease is present at the right lung base - CT Chest 10/07: Extensive diffuse bilateral pulmonary groundglass opacities - negative: T-spot, CrAg, blastomyces Negative HIV Negative C.difficile Leukocytosis, mild - resolved Low grade fever - resolved Elevated LFTs, acute COPD exacerbation Elevated ESR, CRP Diabetes. History of psychiatric disorder. BPH. NKDA Full Code PLAN: continue IV vancomycin d# . ( 10/14 SP Zosyn d# ) f/u final cultures Monitor CBC, temperatures Monitor BMP. Monitor chest x-ray. sputum AFB x 1:P [place] iso Subjective Allergies: Coded Allergies: No Known Allergies (Unverified , 10/07/16) Subjective remains afebrile. no new complaint Objective Vital Signs Last 24 Hour Vital Signs Date Time Temp Pulse Resp B/P Pulse Ox O2 Delivery O2 Flow Rate FiO2 10/18/16 09:10 98.6 10/18/16 09:10 98.6 10/18/16 08:10 98 133/79 10/18/16 08:00 98.2 98 19 133/79 96 Room Air 10/18/16 05:54 98.6 10/18/16 04:00 98.2 70 19 121/65 97 Room Air 10/18/16 00:00 98.6 96 20 139/77 97 Room Air 10/17/16 20:00 98.6 90 19 144/85 98 Nasal Cannula 3.0 10/17/16 16:00 97.3 90 20 141/79 93 Nasal Cannula 3.0 10/17/16 11:26 97.9 85 19 135/79 98 Room Air Height (Feet): 5 Height (Inches): 6.00 Weight (Pounds): 180 General Appearance: no acute distress Respiratory/Chest: no respiratory distress Cardiovascular: normal rate, regular rhythm Abdomen: normal bowel sounds, soft, non tender, non distended Laboratory Tests Test 10/18/16 04:50 White Blood Count 8.3 K/UL (4.8-10.8) Red Blood Count 4.00 M/UL (4.70-6.10) L Hemoglobin 11.3 G/DL (14.2-18.0) L Hematocrit 33.7 % (42.0-52.0) L Mean Corpuscular Volume 84 FL (80-99) Mean Corpuscular Hemoglobin 28.3 PG (27.0-31.0) Mean Corpuscular Hemoglobin Concent 33.7 G/DL (32.0-36.0) Red Cell Distribution Width 12.4 % (11.6-14.8) Platelet Count 473 K/UL (150-450) H Mean Platelet Volume 5.3 FL (6.5-10.1) L Neutrophils (%) (Auto) 60.4 % (45.0-75.0) Lymphocytes (%) (Auto) 28.0 % (20.0-45.0) Monocytes (%) (Auto) 8.7 % (1.0-10.0) Eosinophils (%) (Auto) 2.1 % (0.0-3.0) Basophils (%) (Auto) 0.8 % (0.0-2.0) Sodium Level 139 mEQ/L (135-145) Potassium Level 3.5 mEQ/L (3.4-4.9) Chloride Level 97 mEQ/L (98-107) L Carbon Dioxide Level 27 mEQ/L (20-30) Anion Gap 15 (5-15) Blood Urea Nitrogen 11 mg/dL (7-23) Creatinine 0.8 mg/dL (0.7-1.2) Estimat Glomerular Filtration Rate > 60 mL/min (>60) Glucose Level 114 mg/dL (74-106) H Calcium Level 9.6 mg/dL (8.6-10.2) Total Bilirubin 0.4 mg/dL (0.0-1.2) Aspartate Amino Transf (AST/SGOT) 196 U/L (5-40) H Alanine Aminotransferase (ALT/SGPT) 154 U/L (3-41) H Alkaline Phosphatase 454 U/L (40-129) H Total Protein 7.4 g/dL (6.6-8.7) Albumin 3.5 g/dL (3.5-5.2) Globulin 3.9 g/dL Albumin/Globulin Ratio 0.8 (1.0-2.7) L Current Medications Medications (Trade) Dose Ordered Sig/Van Route PRN Reason Start Time Stop Time Status Last Admin Dose Admin Acetaminophen (Tylenol) 650 mg Q4H PRN ORAL T>100.5 10/12/16 23:00 11/11/16 22:59 10/16/16 09:03 Acetaminophen/ Hydrocodone Bitart ([place] 10/325) 1 ea Q6HR PRN ORAL For Pain 10/17/16 19:00 10/24/16 18:59 10/18/16 04:55 Amlodipine Besylate (Norvasc) 5 mg DAILY ORAL 10/13/16 09:00 11/12/16 08:59 10/18/16 08:10 Aripiprazole (Abilify) 30 mg BEDTIME ORAL 10/13/16 21:00 11/12/16 20:59 10/17/16 20:48 Cyclobenzaprine HCl (Flexeril) 10 mg THREE TIMES A DAY ORAL 10/17/16 19:30 11/16/16 19:29 10/18/16 08:15 Dextrose (Dextrose 50%) STAT PRN IV Hypoglycemia 10/13/16 07:00 11/12/16 06:59 Diphenoxylate HCl/ Atropine (Lomotil) 2.5 mg Q4H PRN ORAL Diarrhea 10/13/16 23:30 11/12/16 23:29 10/14/16 00:15 Gabapentin (Neurontin) 300 mg BID ORAL 10/13/16 09:00 11/12/16 08:59 10/18/16 08:11 Heparin Sodium (Porcine) (Heparin 5000 units/ml) 5,000 units EVERY 12 HOURS SUBQ 10/13/16 09:00 11/12/16 08:59 10/18/16 08:13 Insulin Aspart (NovoLOG) BEFORE MEALS AND HS SUBQ 10/13/16 06:30 11/12/16 06:29 10/18/16 06:06 Ondansetron HCl (Zofran) 4 mg Q6H PRN IVP Nausea & Vomiting 10/13/16 01:00 11/12/16 00:59 Polyethylene Glycol (Miralax) 17 gm DAILYPRN PRN ORAL Constipation 10/13/16 07:00 11/12/16 06:59 Sucralfate (Carafate) 1 gm FOUR TIMES A DAY ORAL 10/13/16 09:00 11/12/16 08:59 10/18/16 08:09 Tamsulosin HCl (Flomax) 0.4 mg DAILY ORAL 10/13/16 09:00 11/12/16 08:59 10/18/16 08:11 Temazepam (Restoril) 15 mg HSPRN PRN ORAL Insomnia 10/13/16 21:00 10/20/16 20:59 10/18/16 00:00 Trazodone HCl (Desyrel) 150 mg BEDTIME ORAL 10/13/16 21:00 11/12/16 20:59 10/17/16 20:32 Vancomycin HCl (Vanco rx to dose) 1 ea DAILY PRN MISC Per rx protocol 10/13/16 09:00 11/12/16 08:59 Vancomycin HCl/ Dextrose (Vancomycin/D5W) 275 ml @ 183.708 mls/hr Q12HR@0200,1400 IVPB 10/13/16 02:00 10/22/16 01:59 10/18/16 01:03 JAREK CLARKE 21, 2017 10:44
[2016-10-18 12:00] VITALS: BP 133/67
--- NOTE | 2016-10-18 12:11 | Diagnostic Imaging Report ---
Indication: DYSPNEA Technique: One view of the chest Comparison: 10/13/2016 Findings: Infiltrate at the right lung base appears improved. Generalized mild interstitial prominence and central bronchial wall thickening persists, suspect chronic. Heart size is normal. Impression: Interim clearing of previously demonstrated right basilar infiltrate. Mild persistent chronic appearing interstitial parenchymal disease and central bronchial wall thickening, suspect on the basis of COPD changes
[2016-10-18 16:05] VITALS: BP 140/82
[2016-10-18] MEDS ORDERED: Tubing IV Secondary IV ONE (17:06)
[2016-10-18] MEDS ORDERED: NS 275ml ONE (17:06)
--- NOTE | 2016-10-18 19:36 | Internal Med Progress Note ---
Subjective Date of Service: Oct 18, 2016 Physician Name Musa,Justin Attending Physician Monty Irwin MD Current Medications Medications (Trade) Dose Ordered Sig/Van Route PRN Reason Start Time Stop Time Status Last Admin Dose Admin Acetaminophen (Tylenol) 650 mg Q4H PRN ORAL T>100.5 10/12/16 23:00 11/11/16 22:59 10/16/16 09:03 Acetaminophen/ Hydrocodone Bitart ([place] 10/325) 1 ea Q6HR PRN ORAL For Pain 10/17/16 19:00 10/24/16 18:59 10/18/16 17:02 Amlodipine Besylate (Norvasc) 5 mg DAILY ORAL 10/13/16 09:00 11/12/16 08:59 10/18/16 08:10 Aripiprazole (Abilify) 30 mg BEDTIME ORAL 10/13/16 21:00 11/12/16 20:59 10/17/16 20:48 Cyclobenzaprine HCl (Flexeril) 10 mg THREE TIMES A DAY ORAL 10/17/16 19:30 11/16/16 19:29 10/18/16 18:12 Dextrose (Dextrose 50%) STAT PRN IV Hypoglycemia 10/13/16 07:00 11/12/16 06:59 Diphenoxylate HCl/ Atropine (Lomotil) 2.5 mg Q4H PRN ORAL Diarrhea 10/13/16 23:30 11/12/16 23:29 10/14/16 00:15 Gabapentin (Neurontin) 300 mg BID ORAL 10/13/16 09:00 11/12/16 08:59 10/18/16 18:14 Heparin Sodium (Porcine) (Heparin 5000 units/ml) 5,000 units EVERY 12 HOURS SUBQ 10/13/16 09:00 11/12/16 08:59 10/18/16 08:13 Insulin Aspart (NovoLOG) BEFORE MEALS AND HS SUBQ 10/13/16 06:30 11/12/16 06:29 10/18/16 17:06 Ondansetron HCl (Zofran) 4 mg Q6H PRN IVP Nausea & Vomiting 10/13/16 01:00 11/12/16 00:59 Polyethylene Glycol (Miralax) 17 gm DAILYPRN PRN ORAL Constipation 10/13/16 07:00 11/12/16 06:59 Sucralfate (Carafate) 1 gm FOUR TIMES A DAY ORAL 10/13/16 09:00 11/12/16 08:59 10/18/16 18:12 Tamsulosin HCl (Flomax) 0.4 mg DAILY ORAL 10/13/16 09:00 11/12/16 08:59 10/18/16 08:11 Temazepam (Restoril) 15 mg HSPRN PRN ORAL Insomnia 10/13/16 21:00 10/20/16 20:59 10/18/16 00:00 Trazodone HCl (Desyrel) 150 mg BEDTIME ORAL 10/13/16 21:00 11/12/16 20:59 10/17/16 20:32 Vancomycin HCl (Vanco rx to dose) 1 ea DAILY PRN MISC Per rx protocol 10/13/16 09:00 11/12/16 08:59 Vancomycin HCl/ Dextrose (Vancomycin/D5W) 275 ml @ 183.708 mls/hr Q12HR@0200,1400 IVPB 10/13/16 02:00 10/22/16 01:59 10/18/16 14:47 Allergies: Coded Allergies: No Known Allergies (Unverified , 10/07/16) ROS Limited/Unobtainable: No Constitutional: Reports: no symptoms HEENT: Reports: no symptoms Cardiovascular: Reports: no symptoms Respiratory: Reports: cough, shortness of breath Gastrointestinal/Abdominal: Reports: no symptoms Genitourinary: Reports: no symptoms Neurologic/Psychiatric: Reports: no symptoms Subjective 51 YO M admitted with respiratory distress, now pneumonia Currently tolerating room air. Cover [facility] Ir[facility]. Objective Last Vital Signs Date Time Temp Pulse Resp B/P Pulse Ox O2 Delivery O2 Flow Rate FiO2 10/18/16 16:05 98.2 83 19 140/82 99 Room Air 10/17/16 20:00 3.0 10/15/16 11:51 36 Laboratory Tests Test 10/18/16 04:50 White Blood Count 8.3 K/UL (4.8-10.8) Red Blood Count 4.00 M/UL (4.70-6.10) L Hemoglobin 11.3 G/DL (14.2-18.0) L Hematocrit 33.7 % (42.0-52.0) L Mean Corpuscular Volume 84 FL (80-99) Mean Corpuscular Hemoglobin 28.3 PG (27.0-31.0) Mean Corpuscular Hemoglobin Concent 33.7 G/DL (32.0-36.0) Red Cell Distribution Width 12.4 % (11.6-14.8) Platelet Count 473 K/UL (150-450) H Mean Platelet Volume 5.3 FL (6.5-10.1) L Neutrophils (%) (Auto) 60.4 % (45.0-75.0) Lymphocytes (%) (Auto) 28.0 % (20.0-45.0) Monocytes (%) (Auto) 8.7 % (1.0-10.0) Eosinophils (%) (Auto) 2.1 % (0.0-3.0) Basophils (%) (Auto) 0.8 % (0.0-2.0) Sodium Level 139 mEQ/L (135-145) Potassium Level 3.5 mEQ/L (3.4-4.9) Chloride Level 97 mEQ/L (98-107) L Carbon Dioxide Level 27 mEQ/L (20-30) Anion Gap 15 (5-15) Blood Urea Nitrogen 11 mg/dL (7-23) Creatinine 0.8 mg/dL (0.7-1.2) Estimat Glomerular Filtration Rate > 60 mL/min (>60) Glucose Level 114 mg/dL (74-106) H Calcium Level 9.6 mg/dL (8.6-10.2) Total Bilirubin 0.4 mg/dL (0.0-1.2) Aspartate Amino Transf (AST/SGOT) 196 U/L (5-40) H Alanine Aminotransferase (ALT/SGPT) 154 U/L (3-41) H Alkaline Phosphatase 454 U/L (40-129) H Total Protein 7.4 g/dL (6.6-8.7) Albumin 3.5 g/dL (3.5-5.2) Globulin 3.9 g/dL Albumin/Globulin Ratio 0.8 (1.0-2.7) L Intake and Output 10/17/16 10/18/16 19:00 07:00 Intake Total 755.000 ml 615 ml Balance 755.000 ml 615 ml Intake Oral 480 ml 615 ml IV Total 275.000 ml # Voids 2 3 # Bowel Movements 1 Objective General Appearance: WD/WN, no apparent distress, alert EENT: PERRL/EOMI, normal ENT inspection, TMs normal Neck: non-tender, normal alignment, supple Cardiovascular: normal peripheral pulses, normal rate, regular rhythm, no gallop/murmur, no JVD Respiratory/Chest: Room air; respiratory distress, crackles/rales, rhonchi - bilaterally, expiratory wheezing Abdomen: normal bowel sounds, non tender, soft, no organomegaly, no mass Extremities: normal range of motion 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 Tolerating nasal canula. (3) COPD with acute exacerbation (4) Pneumonia Assessment & Plan: Bilateral. See ID and pulmonary note. Cont vanco. PPD neg. Await sputum acid fast culture results. (5) Hypertension Assessment & Plan: Cont amlodipine. (6) Diabetes mellitus Assessment & Plan: Cont novolog sliding scale. (7) Hypercholesteremia (8) Anemia (9) PTSD (post-traumatic stress disorder) Status: stable JUSTIN MUSA Oct 18, 2016 19:36
[2016-10-18 20:00] VITALS: BP 129/74
[2016-10-18] MEDS: TraZODone 100mg tab ORAL SCH (21:11)
[2016-10-19] VITALS: BP 125/86
[2016-10-19] MEDS: Vancomycin 1.25 GM in D5W 275 ML IVPB SCH ×2 (01:50→14:29)
[2016-10-19 04:00] VITALS: BP 136/81
[2016-10-19] MEDS: Norco 10mg/325mg tab ORAL PRN ×4 (05:17→23:47)
[2016-10-19] MEDS: NovoLOG Insulin Flexpen SUBQ SCH ×4 (05:21→20:20)
[2016-10-19 08:00] VITALS: BP 122/73
[2016-10-19] MEDS: Tamsulosin 0.4mg cap ORAL SCH (08:41)
[2016-10-19] MEDS: Cyclobenzaprine 10mg Tab ORAL SCH ×3 (08:42→17:38)
[2016-10-19] MEDS: Sucralfate 1gm tab ORAL SCH ×4 (08:42→20:28)
[2016-10-19] MEDS: Heparin 5000 units/ml inj SUBQ SCH ×2 (08:43→20:32)
--- NOTE | 2016-10-19 10:08 | Infectious Diseases Prog Note ---
Assessment/Plan Assessment/Plan ASSESSMENT: 51-year-old male with: Pneumonia RO TB - SCx Serratia,and MRSA, AFB smear(-) x2, TB PCR(-) - Histoplasma(+) 1:8 ?significance - CXR 10/18: interim clearing of previously demonstrated right basilar infiltrate. Mild persistent chronic appearing interstitial parenchymal disease and central bronchial wall thickening, suspect on the basis of COPD changes - CT Chest 10/07: Extensive diffuse bilateral pulmonary groundglass opacities - negative: T-spot, CrAg, blastomyces Negative HIV Negative C.difficile Leukocytosis, mild - resolved Low grade fever - recurrent x1 Elevated LFTs, acute COPD exacerbation Elevated ESR, CRP Diabetes. History of psychiatric disorder. BPH. NKDA Full Code PLAN: continue IV vancomycin d# . Ok to complete course with PO doxycycline at discharge ( 10/14 SP Zosyn d# / ) f/u final cultures Monitor CBC, temperatures Monitor BMP. Monitor chest x-ray. sputum AFB x 1:P [place] iso Subjective Allergies: Coded Allergies: No Known Allergies (Unverified , 10/07/16) Subjective fever x1. no new complaint Objective Vital Signs Last 24 Hour Vital Signs Date Time Temp Pulse Resp B/P Pulse Ox O2 Delivery O2 Flow Rate FiO2 10/19/16 08:42 73 122/73 10/19/16 08:00 98.3 73 20 122/73 100 Nasal Cannula 3.0 10/19/16 06:18 98.8 10/19/16 04:00 98.4 72 20 136/81 92 Nasal Cannula 2.0 10/19/16 01:27 98.8 10/19/16 01:13 98.8 10/19/16 00:00 101.7 91 20 125/86 96 Nasal Cannula 10/18/16 20:00 98.6 93 20 129/74 99 Room Air 10/18/16 16:05 98.2 83 19 140/82 99 Room Air 10/18/16 14:14 97.7 10/18/16 12:00 97.7 98 20 133/67 98 Room Air Height (Feet): 5 Height (Inches): 6.00 Weight (Pounds): 180 General Appearance: no acute distress Respiratory/Chest: no respiratory distress Cardiovascular: normal rate, regular rhythm Abdomen: normal bowel sounds, soft, non tender, non distended Current Medications Medications (Trade) Dose Ordered Sig/Van Route PRN Reason Start Time Stop Time Status Last Admin Dose Admin Acetaminophen (Tylenol) 650 mg Q4H PRN ORAL T>100.5 10/12/16 23:00 11/11/16 22:59 10/19/16 00:14 Acetaminophen/ Hydrocodone Bitart ([place] 10/325) 1 ea Q6HR PRN ORAL For Pain 10/17/16 19:00 10/24/16 18:59 10/19/16 05:17 Amlodipine Besylate (Norvasc) 5 mg DAILY ORAL 10/13/16 09:00 11/12/16 08:59 10/19/16 08:42 Aripiprazole (Abilify) 30 mg BEDTIME ORAL 10/13/16 21:00 11/12/16 20:59 10/18/16 21:11 Cyclobenzaprine HCl (Flexeril) 10 mg THREE TIMES A DAY ORAL 10/17/16 19:30 11/16/16 19:29 10/19/16 08:42 Dextrose (Dextrose 50%) STAT PRN IV Hypoglycemia 10/13/16 07:00 11/12/16 06:59 Diphenoxylate HCl/ Atropine (Lomotil) 2.5 mg Q4H PRN ORAL Diarrhea 10/13/16 23:30 11/12/16 23:29 10/14/16 00:15 Gabapentin (Neurontin) 300 mg BID ORAL 10/13/16 09:00 11/12/16 08:59 10/19/16 08:41 Heparin Sodium (Porcine) (Heparin 5000 units/ml) 5,000 units EVERY 12 HOURS SUBQ 10/13/16 09:00 11/12/16 08:59 10/19/16 08:43 Insulin Aspart (NovoLOG) BEFORE MEALS AND HS SUBQ 10/13/16 06:30 11/12/16 06:29 10/19/16 05:21 Ondansetron HCl (Zofran) 4 mg Q6H PRN IVP Nausea & Vomiting 10/13/16 01:00 11/12/16 00:59 Polyethylene Glycol (Miralax) 17 gm DAILYPRN PRN ORAL Constipation 10/13/16 07:00 11/12/16 06:59 Sucralfate (Carafate) 1 gm FOUR TIMES A DAY ORAL 10/13/16 09:00 11/12/16 08:59 10/19/16 08:42 Tamsulosin HCl (Flomax) 0.4 mg DAILY ORAL 10/13/16 09:00 11/12/16 08:59 10/19/16 08:41 Temazepam (Restoril) 15 mg HSPRN PRN ORAL Insomnia 10/13/16 21:00 10/20/16 20:59 10/19/16 00:15 Trazodone HCl (Desyrel) 150 mg BEDTIME ORAL 10/13/16 21:00 11/12/16 20:59 10/18/16 21:11 Vancomycin HCl (Vanco rx to dose) 1 ea DAILY PRN MISC Per rx protocol 10/13/16 09:00 11/12/16 08:59 Vancomycin HCl/ Dextrose (Vancomycin/D5W) 275 ml @ 183.708 mls/hr Q12HR@0200,1400 IVPB 10/13/16 02:00 10/22/16 01:59 10/19/16 01:50 JAREK CLARKE 22, 2017 10:07
[2016-10-19 12:00] VITALS: BP 136/98
[2016-10-19 16:01] VITALS: BP 129/85
[2016-10-19 20:01] VITALS: BP 125/63
--- NOTE | 2016-10-19 20:02 | Internal Med Progress Note ---
Subjective Date of Service: Oct 19, 2016 Physician Name Musa,Justin Attending Physician Monty Irwin MD Current Medications Medications (Trade) Dose Ordered Sig/Van Route PRN Reason Start Time Stop Time Status Last Admin Dose Admin Acetaminophen (Tylenol) 650 mg Q4H PRN ORAL T>100.5 10/12/16 23:00 11/11/16 22:59 10/19/16 00:14 Acetaminophen/ Hydrocodone Bitart ([place] 10/325) 1 ea Q6HR PRN ORAL For Pain 10/17/16 19:00 10/24/16 18:59 10/19/16 17:38 Amlodipine Besylate (Norvasc) 5 mg DAILY ORAL 10/13/16 09:00 11/12/16 08:59 10/19/16 08:42 Aripiprazole (Abilify) 30 mg BEDTIME ORAL 10/13/16 21:00 11/12/16 20:59 10/18/16 21:11 Cyclobenzaprine HCl (Flexeril) 10 mg THREE TIMES A DAY ORAL 10/17/16 19:30 11/16/16 19:29 10/19/16 17:38 Dextrose (Dextrose 50%) STAT PRN IV Hypoglycemia 10/13/16 07:00 11/12/16 06:59 Diphenoxylate HCl/ Atropine (Lomotil) 2.5 mg Q4H PRN ORAL Diarrhea 10/13/16 23:30 11/12/16 23:29 10/14/16 00:15 Gabapentin (Neurontin) 300 mg BID ORAL 10/13/16 09:00 11/12/16 08:59 10/19/16 17:38 Heparin Sodium (Porcine) (Heparin 5000 units/ml) 5,000 units EVERY 12 HOURS SUBQ 10/13/16 09:00 11/12/16 08:59 10/19/16 08:43 Insulin Aspart (NovoLOG) BEFORE MEALS AND HS SUBQ 10/13/16 06:30 11/12/16 06:29 10/19/16 17:41 Ondansetron HCl (Zofran) 4 mg Q6H PRN IVP Nausea & Vomiting 10/13/16 01:00 11/12/16 00:59 Polyethylene Glycol (Miralax) 17 gm DAILYPRN PRN ORAL Constipation 10/13/16 07:00 11/12/16 06:59 Sucralfate (Carafate) 1 gm FOUR TIMES A DAY ORAL 10/13/16 09:00 11/12/16 08:59 10/19/16 17:38 Tamsulosin HCl (Flomax) 0.4 mg DAILY ORAL 10/13/16 09:00 11/12/16 08:59 10/19/16 08:41 Temazepam (Restoril) 15 mg HSPRN PRN ORAL Insomnia 10/13/16 21:00 10/20/16 20:59 10/19/16 00:15 Trazodone HCl (Desyrel) 150 mg BEDTIME ORAL 10/13/16 21:00 11/12/16 20:59 10/18/16 21:11 Vancomycin HCl (Vanco rx to dose) 1 ea DAILY PRN MISC Per rx protocol 10/13/16 09:00 11/12/16 08:59 Vancomycin HCl/ Dextrose (Vancomycin/D5W) 275 ml @ 183.708 mls/hr Q12HR@0200,1400 IVPB 10/13/16 02:00 10/22/16 01:59 10/19/16 14:29 Allergies: Coded Allergies: No Known Allergies (Unverified , 10/07/16) ROS Limited/Unobtainable: No Constitutional: Reports: no symptoms HEENT: Reports: no symptoms Cardiovascular: Reports: no symptoms Respiratory: Reports: cough, shortness of breath Gastrointestinal/Abdominal: Reports: no symptoms Genitourinary: Reports: no symptoms Neurologic/Psychiatric: Reports: no symptoms Subjective 51 YO M admitted with respiratory distress, now pneumonia Currently tolerating nasal canula. Cover for Int Med-Dr Irwin. Objective Last Vital Signs Date Time Temp Pulse Resp B/P Pulse Ox O2 Delivery O2 Flow Rate FiO2 10/19/16 18:37 98.2 10/19/16 16:01 90 20 129/85 97 Nasal Cannula 3.0 10/15/16 11:51 36 Intake and Output 10/18/16 10/19/16 19:00 07:00 Intake Total 875.000 ml 995.000 ml Balance 875.000 ml 995.000 ml Intake Oral 600 ml 720 ml IV Total 275.000 ml 275.000 ml # Voids 4 5 # Bowel Movements 1 Objective General Appearance: WD/WN, no apparent distress, alert EENT: PERRL/EOMI, normal ENT inspection, TMs normal Neck: non-tender, normal alignment, supple Cardiovascular: normal peripheral pulses, normal rate, regular rhythm, no gallop/murmur, no JVD Respiratory/Chest: Nasal canula; respiratory distress, crackles/rales, rhonchi - bilaterally, expiratory wheezing Abdomen: normal bowel sounds, non tender, soft, no organomegaly, no mass Extremities: normal range of motion 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 Tolerating nasal canula. (3) COPD with acute exacerbation (4) Pneumonia Assessment & Plan: Bilateral. See ID and pulmonary note. Cont vanco. PPD neg. Await sputum acid fast culture results. (5) Hypertension Assessment & Plan: Cont amlodipine. (6) Diabetes mellitus Assessment & Plan: Cont novolog sliding scale. (7) Hypercholesteremia (8) Anemia (9) PTSD (post-traumatic stress disorder) JUSTIN MUSA Oct 19, 2016 20:02
[2016-10-19] MEDS: TraZODone 100mg tab ORAL SCH (20:29)
--- NOTE | 2016-10-19 22:35 | Pulmonology Progress Note ---
Assessment/Plan Problems: (1) Interstitial pneumonitis Assessment & Plan: lymphocyte predominance persists (2) Respiratory failure with hypoxia Assessment & Plan: resolved (3) Multiple nodules of lung (4) Hyponatremia (5) Anemia in chronic kidney disease (CKD) (6) COPD with acute exacerbation (7) Nicotine addiction Assessment/Plan mrsa in sputum clinically continues to improve continue antibiotics respiratory treatment f/u electrolytes check sputum add carafate po for epigastric pain PPD was negative cxr improving doubt TB, since pt responded to antibacterial regimen Subjective Allergies: Coded Allergies: No Known Allergies (Unverified , 10/07/16) Objective Last 24 Hour Vital Signs Date Time Temp Pulse Resp B/P Pulse Ox O2 Delivery O2 Flow Rate FiO2 10/19/16 20:01 97.9 85 18 125/63 100 Room Air 10/19/16 18:37 98.2 10/19/16 18:37 98.2 10/19/16 18:37 98.2 10/19/16 16:01 98.2 90 20 129/85 97 Nasal Cannula 3.0 10/19/16 12:00 97.7 96 20 136/98 100 Room Air 10/19/16 08:42 73 122/73 10/19/16 08:00 98.3 73 20 122/73 100 Nasal Cannula 3.0 10/19/16 04:00 98.4 72 20 136/81 92 Nasal Cannula 2.0 10/19/16 01:27 98.8 10/19/16 01:13 98.8 10/19/16 00:00 101.7 91 20 125/86 96 Nasal Cannula Intake and Output 10/18/16 10/19/16 19:00 07:00 Intake Total 875.000 ml 995.000 ml Balance 875.000 ml 995.000 ml Intake Oral 600 ml 720 ml IV Total 275.000 ml 275.000 ml # Voids 4 5 # Bowel Movements 1 Objective General Appearance: WD/WN, no acute distress HEENT: normocephalic, anicteric Respiratory/Chest: chest wall non-tender, decreased breath sounds, positive rhonchi Cardiovascular: normal peripheral pulses, normal rate Abdomen: normal bowel sounds, soft, non tender Genitourinary: normal external genitalia Extremities: no cyanosis Skin: no rash 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 Lymphatic: no neck adenopathy Current Medications Medications (Trade) Dose Ordered Sig/Van Route PRN Reason Start Time Stop Time Status Last Admin Dose Admin Acetaminophen (Tylenol) 650 mg Q4H PRN ORAL T>100.5 10/12/16 23:00 11/11/16 22:59 10/19/16 00:14 Acetaminophen/ Hydrocodone Bitart ([place] 10/325) 1 ea Q6HR PRN ORAL For Pain 10/17/16 19:00 10/24/16 18:59 10/19/16 17:38 Amlodipine Besylate (Norvasc) 5 mg DAILY ORAL 10/13/16 09:00 11/12/16 08:59 10/19/16 08:42 Aripiprazole (Abilify) 30 mg BEDTIME ORAL 10/13/16 21:00 11/12/16 20:59 10/19/16 20:28 Cyclobenzaprine HCl (Flexeril) 10 mg THREE TIMES A DAY ORAL 10/17/16 19:30 11/16/16 19:29 10/19/16 17:38 Dextrose (Dextrose 50%) STAT PRN IV Hypoglycemia 10/13/16 07:00 11/12/16 06:59 Diphenoxylate HCl/ Atropine (Lomotil) 2.5 mg Q4H PRN ORAL Diarrhea 10/13/16 23:30 11/12/16 23:29 10/14/16 00:15 Gabapentin (Neurontin) 300 mg BID ORAL 10/13/16 09:00 11/12/16 08:59 10/19/16 17:38 Heparin Sodium (Porcine) (Heparin 5000 units/ml) 5,000 units EVERY 12 HOURS SUBQ 10/13/16 09:00 11/12/16 08:59 10/19/16 20:32 Insulin Aspart (NovoLOG) BEFORE MEALS AND HS SUBQ 10/13/16 06:30 11/12/16 06:29 10/19/16 17:41 Ondansetron HCl (Zofran) 4 mg Q6H PRN IVP Nausea & Vomiting 10/13/16 01:00 11/12/16 00:59 Polyethylene Glycol (Miralax) 17 gm DAILYPRN PRN ORAL Constipation 10/13/16 07:00 11/12/16 06:59 Sucralfate (Carafate) 1 gm FOUR TIMES A DAY ORAL 10/13/16 09:00 11/12/16 08:59 10/19/16 20:28 Tamsulosin HCl (Flomax) 0.4 mg DAILY ORAL 10/13/16 09:00 11/12/16 08:59 10/19/16 08:41 Temazepam (Restoril) 15 mg HSPRN PRN ORAL Insomnia 10/13/16 21:00 10/20/16 20:59 10/19/16 20:28 Trazodone HCl (Desyrel) 150 mg BEDTIME ORAL 10/13/16 21:00 11/12/16 20:59 10/19/16 20:29 Vancomycin HCl (Vanco rx to dose) 1 ea DAILY PRN MISC Per rx protocol 10/13/16 09:00 11/12/16 08:59 Vancomycin HCl/ Dextrose (Vancomycin/D5W) 275 ml @ 183.708 mls/hr Q12HR@0200,1400 IVPB 10/13/16 02:00 10/22/16 01:59 10/19/16 14:29 ANDRESSA RCAIG Oct 19, 2016 22:35
[2016-10-20] VITALS: BP 127/65
[2016-10-20] MEDS: Vancomycin 1.25 GM in D5W 275 ML IVPB SCH ×2 (01:27→13:22)
[2016-10-20 03:49] VITALS: BP 116/73
[2016-10-20] MEDS: Norco 10mg/325mg tab ORAL PRN ×3 (05:47→18:17)
[2016-10-20] MEDS: NovoLOG Insulin Flexpen SUBQ SCH ×4 (05:48→20:36)
[2016-10-20 06:40] LABS: BASOPHILS % (AUTO) 1.6 % (0.0-2.0); EOSINOPHILS % (AUTO) 2.2 % (0.0-3.0); LYMPHOCYTES % (AUTO) 31.2 % (20.0-45.0); MEAN CORPUSCULAR HEMOGLOBIN 28.5 PG (27.0-31.0); MEAN CORPUSCULAR HGB CONC 33.9 G/DL (32.0-36.0); MEAN CORPUSCULAR VOLUME 84 FL (80-99); MONOCYTES % (AUTO) 8.8 % (1.0-10.0); NEUTROPHILS % (AUTO) 56.2 % (45.0-75.0); PLATELET COUNT 479 K/UL (150-450); RED BLOOD COUNT 3.63 M/UL (4.70-6.10); RED CELL DISTRIBUTION WIDTH 12.8 % (11.6-14.8); WHITE BLOOD COUNT 7.7 K/UL (4.8-10.8)
[2016-10-20 07:13] LABS: ALANINE AMINOTRANSFERASE 144 U/L (3-41); ALBUMIN/GLOBULIN RATIO 0.9 (1.0-2.7); ANION GAP 15 (5-15); ASPARTATE AMINO TRANSFERASE 60 U/L (5-40); CALCIUM 9.3 mg/dL (8.6-10.2); CARBON DIOXIDE 28 mEQ/L (20-30); CHLORIDE 94 mEQ/L (98-107); CREATININE 0.8 mg/dL (0.7-1.2); GLOMERULAR FILTRATION RATE > 60 mL/min (>60); HEMOLYSIS 2; POTASSIUM 3.5 mEQ/L (3.4-4.9); SODIUM 137 mEQ/L (135-145); TOTAL PROTEIN 7.1 g/dL (6.6-8.7)
[2016-10-20 08:00] VITALS: BP 125/77
[2016-10-20] MEDS: Sucralfate 1gm tab ORAL SCH ×4 (08:25→20:36)
[2016-10-20] MEDS: Tamsulosin 0.4mg cap ORAL SCH (08:25)
[2016-10-20] MEDS: Cyclobenzaprine 10mg Tab ORAL SCH ×3 (08:25→17:20)
[2016-10-20] MEDS: Heparin 5000 units/ml inj SUBQ SCH ×2 (08:28→20:40)
--- NOTE | 2016-10-20 10:53 | Infectious Diseases Prog Note ---
Assessment/Plan Assessment/Plan ASSESSMENT: 51-year-old male with: Pneumonia RO TB - SCx Serratia,and MRSA, AFB smear(-) x2, TB PCR(-) - Histoplasma(+) 1:8 ?significance - CXR 10/18: interim clearing of previously demonstrated right basilar infiltrate. Mild persistent chronic appearing interstitial parenchymal disease and central bronchial wall thickening, suspect on the basis of COPD changes - CT Chest 10/07: Extensive diffuse bilateral pulmonary groundglass opacities - negative: T-spot, CrAg, blastomyces Negative HIV Negative C.difficile Leukocytosis, mild - resolved Low grade fever - recurrent x1 resolved Elevated LFTs, acute - improved COPD exacerbation Elevated ESR, CRP Diabetes. History of psychiatric disorder. BPH. NKDA Full Code PLAN: continue IV vancomycin d# 13 / . Ok to complete course with PO doxycycline at discharge ( 10/14 SP Zosyn d# 7 / ) f/u final cultures Monitor CBC, temperatures Monitor BMP. Monitor chest x-ray. Subjective Allergies: Coded Allergies: No Known Allergies (Unverified , 10/07/16) Subjective fever x1 resolved. no new complaint Objective Vital Signs Last 24 Hour Vital Signs Date Time Temp Pulse Resp B/P Pulse Ox O2 Delivery O2 Flow Rate FiO2 10/20/16 09:24 99.5 10/20/16 09:24 99.5 10/20/16 08:25 78 116/73 10/20/16 08:00 98.1 86 20 125/77 99 Room Air 10/20/16 06:46 99.5 10/20/16 03:49 99.5 78 18 116/73 90 Room Air 10/20/16 00:00 99.1 94 18 127/65 91 Room Air 10/19/16 20:01 97.9 85 18 125/63 100 Room Air 10/19/16 19:30 Nasal Cannula 3.0 36 10/19/16 19:30 96 Nasal Cannula 3.0 36 10/19/16 16:01 98.2 90 20 129/85 97 Nasal Cannula 3.0 10/19/16 12:00 97.7 96 20 136/98 100 Room Air Height (Feet): 5 Height (Inches): 6.00 Weight (Pounds): 180 General Appearance: no acute distress Respiratory/Chest: no respiratory distress Cardiovascular: normal rate, regular rhythm Abdomen: normal bowel sounds, soft, non tender, non distended Laboratory Tests Test 10/20/16 05:20 White Blood Count 7.7 K/UL (4.8-10.8) Red Blood Count 3.63 M/UL (4.70-6.10) L Hemoglobin 10.3 G/DL (14.2-18.0) L Hematocrit 30.5 % (42.0-52.0) L Mean Corpuscular Volume 84 FL (80-99) Mean Corpuscular Hemoglobin 28.5 PG (27.0-31.0) Mean Corpuscular Hemoglobin Concent 33.9 G/DL (32.0-36.0) Red Cell Distribution Width 12.8 % (11.6-14.8) Platelet Count 479 K/UL (150-450) H Mean Platelet Volume 5.0 FL (6.5-10.1) L Neutrophils (%) (Auto) 56.2 % (45.0-75.0) Lymphocytes (%) (Auto) 31.2 % (20.0-45.0) Monocytes (%) (Auto) 8.8 % (1.0-10.0) Eosinophils (%) (Auto) 2.2 % (0.0-3.0) Basophils (%) (Auto) 1.6 % (0.0-2.0) Sodium Level 137 mEQ/L (135-145) Potassium Level 3.5 mEQ/L (3.4-4.9) Chloride Level 94 mEQ/L (98-107) L Carbon Dioxide Level 28 mEQ/L (20-30) Anion Gap 15 (5-15) Blood Urea Nitrogen 14 mg/dL (7-23) Creatinine 0.8 mg/dL (0.7-1.2) Estimat Glomerular Filtration Rate > 60 mL/min (>60) Glucose Level 120 mg/dL (74-106) H Calcium Level 9.3 mg/dL (8.6-10.2) Total Bilirubin 0.3 mg/dL (0.0-1.2) Aspartate Amino Transf (AST/SGOT) 60 U/L (5-40) H Alanine Aminotransferase (ALT/SGPT) 144 U/L (3-41) H Alkaline Phosphatase 336 U/L (40-129) H Total Protein 7.1 g/dL (6.6-8.7) Albumin 3.4 g/dL (3.5-5.2) L Globulin 3.7 g/dL Albumin/Globulin Ratio 0.9 (1.0-2.7) L Current Medications Medications (Trade) Dose Ordered Sig/Van Route PRN Reason Start Time Stop Time Status Last Admin Dose Admin Acetaminophen (Tylenol) 650 mg Q4H PRN ORAL T>100.5 10/12/16 23:00 11/11/16 22:59 10/19/16 00:14 Acetaminophen/ Hydrocodone Bitart ([place] 10/325) 1 ea Q6HR PRN ORAL For Pain 10/17/16 19:00 10/24/16 18:59 10/20/16 05:47 Amlodipine Besylate (Norvasc) 5 mg DAILY ORAL 10/13/16 09:00 11/12/16 08:59 10/20/16 08:25 Aripiprazole (Abilify) 30 mg BEDTIME ORAL 10/13/16 21:00 11/12/16 20:59 10/19/16 20:28 Cyclobenzaprine HCl (Flexeril) 10 mg THREE TIMES A DAY ORAL 10/17/16 19:30 11/16/16 19:29 10/20/16 08:25 Dextrose (Dextrose 50%) STAT PRN IV Hypoglycemia 10/13/16 07:00 11/12/16 06:59 Diphenoxylate HCl/ Atropine (Lomotil) 2.5 mg Q4H PRN ORAL Diarrhea 10/13/16 23:30 11/12/16 23:29 10/14/16 00:15 Gabapentin (Neurontin) 300 mg BID ORAL 10/13/16 09:00 11/12/16 08:59 10/20/16 08:25 Heparin Sodium (Porcine) (Heparin 5000 units/ml) 5,000 units EVERY 12 HOURS SUBQ 10/13/16 09:00 11/12/16 08:59 10/20/16 08:28 Insulin Aspart (NovoLOG) BEFORE MEALS AND HS SUBQ 10/13/16 06:30 11/12/16 06:29 10/20/16 05:48 Ondansetron HCl (Zofran) 4 mg Q6H PRN IVP Nausea & Vomiting 10/13/16 01:00 11/12/16 00:59 Polyethylene Glycol (Miralax) 17 gm DAILYPRN PRN ORAL Constipation 10/13/16 07:00 11/12/16 06:59 Sucralfate (Carafate) 1 gm FOUR TIMES A DAY ORAL 10/13/16 09:00 11/12/16 08:59 10/20/16 08:25 Tamsulosin HCl (Flomax) 0.4 mg DAILY ORAL 10/13/16 09:00 11/12/16 08:59 10/20/16 08:25 Temazepam (Restoril) 15 mg HSPRN PRN ORAL Insomnia 10/13/16 21:00 10/20/16 20:59 10/19/16 20:28 Trazodone HCl (Desyrel) 150 mg BEDTIME ORAL 10/13/16 21:00 11/12/16 20:59 10/19/16 20:29 Vancomycin HCl (Vanco rx to dose) 1 ea DAILY PRN MISC Per rx protocol 10/13/16 09:00 11/12/16 08:59 Vancomycin HCl/ Dextrose (Vancomycin/D5W) 275 ml @ 183.708 mls/hr Q12HR@0200,1400 IVPB 10/13/16 02:00 10/22/16 01:59 10/20/16 01:27 JAREK CLARKE 23, 2017 10:53
[2016-10-20 12:00] VITALS: BP 118/75
--- NOTE | 2016-10-20 14:48 | Discharge Summary ---
Discharge Summary Hospital Course Date of Admission Oct 07, 2016 at 03:58 Date of Discharge Admitting Diagnosis CHF, COPD HPI Leoncio Yang is a 51 year old male who was admitted on Oct 07, 2016 at 03:58 for Congestive Heart Failure,Chronic Obstructive Hospital Course The patient was seen and examined at bedside and all new and available data was reviewed in the patients chart. Last 24 Hour Vital Signs Date Time Temp Pulse Resp B/P Pulse Ox O2 Delivery O2 Flow Rate FiO2 10/20/16 14:21 99.5 10/20/16 12:37 99.5 10/20/16 09:24 99.5 10/20/16 08:25 78 116/73 10/20/16 08:00 98.1 86 20 125/77 99 Room Air 10/20/16 03:49 99.5 78 18 116/73 90 Room Air 10/20/16 00:00 99.1 94 18 127/65 91 Room Air 10/19/16 20:01 97.9 85 18 125/63 100 Room Air 10/19/16 19:30 Nasal Cannula 3.0 36 10/19/16 19:30 96 Nasal Cannula 3.0 36 10/19/16 16:01 98.2 90 20 129/85 97 Nasal Cannula 3.0 HEENT: His head and neck examination progressively director of sleep and someone intact. Neck was supple. No JVD. LUNGS: Entry with crackles on the bases. Decreased air in the bases. No wheezes. HEART: S1, S2. Distant heart sounds. Normal gallop. ABDOMEN: Soft and nontender. Mildly obese. EXTREMITIES: No cyanosis, clubbing, or edema. NEUROLOGIC: Cranial nerves II through XII are grossly intact. Motor intact. Plan: DC to [facility]. (Patient was seen earlier today. Signature timestamp does not reflect patient encounter time) Monty Irwin MD Discharge Discharge Disposition Patient was discharged to Discharge Diagnoses: Monty Irwin MD Oct 20, 2016 14:48
[2016-10-20 16:00] VITALS: BP 139/84
--- NOTE | 2016-10-20 18:39 | Internal Med Progress Note ---
Subjective Date of Service: Oct 20, 2016 Physician Name Musa,Justin Attending Physician Monty Irwin MD Current Medications Medications (Trade) Dose Ordered Sig/Van Route PRN Reason Start Time Stop Time Status Last Admin Dose Admin Acetaminophen (Tylenol) 650 mg Q4H PRN ORAL T>100.5 10/12/16 23:00 11/11/16 22:59 10/19/16 00:14 Acetaminophen/ Hydrocodone Bitart ([place] 10/325) 1 ea Q6HR PRN ORAL For Pain 10/17/16 19:00 10/24/16 18:59 10/20/16 18:17 Amlodipine Besylate (Norvasc) 5 mg DAILY ORAL 10/13/16 09:00 11/12/16 08:59 10/20/16 08:25 Aripiprazole (Abilify) 30 mg BEDTIME ORAL 10/13/16 21:00 11/12/16 20:59 10/19/16 20:28 Cyclobenzaprine HCl (Flexeril) 10 mg THREE TIMES A DAY ORAL 10/17/16 19:30 11/16/16 19:29 10/20/16 17:20 Dextrose (Dextrose 50%) STAT PRN IV Hypoglycemia 10/13/16 07:00 11/12/16 06:59 Diphenoxylate HCl/ Atropine (Lomotil) 2.5 mg Q4H PRN ORAL Diarrhea 10/13/16 23:30 11/12/16 23:29 10/14/16 00:15 Gabapentin (Neurontin) 300 mg BID ORAL 10/13/16 09:00 11/12/16 08:59 10/20/16 17:20 Heparin Sodium (Porcine) (Heparin 5000 units/ml) 5,000 units EVERY 12 HOURS SUBQ 10/13/16 09:00 11/12/16 08:59 10/20/16 08:28 Insulin Aspart (NovoLOG) BEFORE MEALS AND HS SUBQ 10/13/16 06:30 11/12/16 06:29 10/20/16 17:19 Ondansetron HCl (Zofran) 4 mg Q6H PRN IVP Nausea & Vomiting 10/13/16 01:00 11/12/16 00:59 Polyethylene Glycol (Miralax) 17 gm DAILYPRN PRN ORAL Constipation 10/13/16 07:00 11/12/16 06:59 Sucralfate (Carafate) 1 gm FOUR TIMES A DAY ORAL 10/13/16 09:00 11/12/16 08:59 10/20/16 17:20 Tamsulosin HCl (Flomax) 0.4 mg DAILY ORAL 10/13/16 09:00 11/12/16 08:59 10/20/16 08:25 Temazepam (Restoril) 15 mg HSPRN PRN ORAL Insomnia 10/13/16 21:00 10/20/16 20:59 10/19/16 20:28 Trazodone HCl (Desyrel) 150 mg BEDTIME ORAL 10/13/16 21:00 11/12/16 20:59 10/19/16 20:29 Vancomycin HCl (Vanco rx to dose) 1 ea DAILY PRN MISC Per rx protocol 10/13/16 09:00 11/12/16 08:59 Vancomycin HCl/ Dextrose (Vancomycin/D5W) 275 ml @ 183.708 mls/hr Q12HR@0200,1400 IVPB 10/13/16 02:00 10/22/16 01:59 10/20/16 13:22 Allergies: Coded Allergies: No Known Allergies (Unverified , 10/07/16) ROS Limited/Unobtainable: No Constitutional: Reports: no symptoms HEENT: Reports: no symptoms Respiratory: Reports: cough, shortness of breath Gastrointestinal/Abdominal: Reports: no symptoms Genitourinary: Reports: no symptoms Neurologic/Psychiatric: Reports: no symptoms Subjective 51 YO M admitted with respiratory distress, now pneumonia Currently tolerating nasal canula. Cover for Int [facility]-Dr Irwin. Objective Last Vital Signs Date Time Temp Pulse Resp B/P Pulse Ox O2 Delivery O2 Flow Rate FiO2 10/20/16 16:00 97.9 88 22 139/84 91 Room Air 10/19/16 19:30 3.0 36 Laboratory Tests Test 10/20/16 05:20 White Blood Count 7.7 K/UL (4.8-10.8) Red Blood Count 3.63 M/UL (4.70-6.10) L Hemoglobin 10.3 G/DL (14.2-18.0) L Hematocrit 30.5 % (42.0-52.0) L Mean Corpuscular Volume 84 FL (80-99) Mean Corpuscular Hemoglobin 28.5 PG (27.0-31.0) Mean Corpuscular Hemoglobin Concent 33.9 G/DL (32.0-36.0) Red Cell Distribution Width 12.8 % (11.6-14.8) Platelet Count 479 K/UL (150-450) H Mean Platelet Volume 5.0 FL (6.5-10.1) L Neutrophils (%) (Auto) 56.2 % (45.0-75.0) Lymphocytes (%) (Auto) 31.2 % (20.0-45.0) Monocytes (%) (Auto) 8.8 % (1.0-10.0) Eosinophils (%) (Auto) 2.2 % (0.0-3.0) Basophils (%) (Auto) 1.6 % (0.0-2.0) Sodium Level 137 mEQ/L (135-145) Potassium Level 3.5 mEQ/L (3.4-4.9) Chloride Level 94 mEQ/L (98-107) L Carbon Dioxide Level 28 mEQ/L (20-30) Anion Gap 15 (5-15) Blood Urea Nitrogen 14 mg/dL (7-23) Creatinine 0.8 mg/dL (0.7-1.2) Estimat Glomerular Filtration Rate > 60 mL/min (>60) Glucose Level 120 mg/dL (74-106) H Calcium Level 9.3 mg/dL (8.6-10.2) Total Bilirubin 0.3 mg/dL (0.0-1.2) Aspartate Amino Transf (AST/SGOT) 60 U/L (5-40) H Alanine Aminotransferase (ALT/SGPT) 144 U/L (3-41) H Alkaline Phosphatase 336 U/L (40-129) H Total Protein 7.1 g/dL (6.6-8.7) Albumin 3.4 g/dL (3.5-5.2) L Globulin 3.7 g/dL Albumin/Globulin Ratio 0.9 (1.0-2.7) L Intake and Output 10/19/16 10/20/16 19:00 07:00 Intake Total 1115 ml 995.000 ml Balance 1115 ml 995.000 ml Intake Oral 840 ml 720 ml IV Total 275 ml 275.000 ml # Voids 3 7 # Bowel Movements 1 Objective General Appearance: WD/WN, no apparent distress, alert EENT: PERRL/EOMI, normal ENT inspection, TMs normal Neck: non-tender, normal alignment, supple Cardiovascular: normal peripheral pulses, normal rate, regular rhythm, no gallop/murmur, no JVD Respiratory/Chest: Nasal canula; respiratory distress, crackles/rales, rhonchi - bilaterally, expiratory wheezing Abdomen: normal bowel sounds, non tender, soft, no organomegaly, no mass Extremities: normal range of motion 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 Tolerating nasal canula. (3) COPD with acute exacerbation (4) Pneumonia Assessment & Plan: Bilateral. See ID and pulmonary note. Cont vanco. PPD neg. Await sputum acid fast culture results. (5) Hypertension Assessment & Plan: Cont amlodipine. (6) Diabetes mellitus Assessment & Plan: Cont novolog sliding scale. (7) Hypercholesteremia (8) Anemia (9) PTSD (post-traumatic stress disorder) Status: stable JUSTIN MUSA Oct 20, 2016 18:39
[2016-10-20 20:08] VITALS: BP 126/76
[2016-10-20] MEDS: TraZODone 100mg tab ORAL SCH (20:36)
--- NOTE | 2016-10-20 23:46 | Pulmonology Progress Note ---
Assessment/Plan Problems: (1) Interstitial pneumonitis Assessment & Plan: lymphocyte predominance persists (2) Respiratory failure with hypoxia Assessment & Plan: resolved (3) Multiple nodules of lung (4) Hyponatremia (5) Anemia in chronic kidney disease (CKD) (6) COPD with acute exacerbation (7) Nicotine addiction Assessment/Plan mrsa in sputum clinically continues to improve continue antibiotics respiratory treatment f/u electrolytes check sputum add carafate po for epigastric pain PPD was negative cxr improving doubt TB, since pt responded to antibacterial regimen Subjective Allergies: Coded Allergies: No Known Allergies (Unverified , 10/07/16) Objective Last 24 Hour Vital Signs Date Time Temp Pulse Resp B/P Pulse Ox O2 Delivery O2 Flow Rate FiO2 10/20/16 21:36 Room Air 10/20/16 21:36 95 Room Air 10/20/16 20:08 98.6 87 20 126/76 90 Room Air 10/20/16 18:19 97.9 10/20/16 18:19 97.9 10/20/16 18:19 97.9 10/20/16 16:00 97.9 88 22 139/84 91 Room Air 10/20/16 12:00 97.0 77 20 118/75 99 Room Air 10/20/16 08:25 78 116/73 10/20/16 08:00 98.1 86 20 125/77 99 Room Air 10/20/16 03:49 99.5 78 18 116/73 90 Room Air 10/20/16 00:00 99.1 94 18 127/65 91 Room Air Intake and Output 10/19/16 10/20/16 19:00 07:00 Intake Total 1115 ml 995.000 ml Balance 1115 ml 995.000 ml Intake Oral 840 ml 720 ml IV Total 275 ml 275.000 ml # Voids 3 7 # Bowel Movements 1 Objective General Appearance: WD/WN, no acute distress HEENT: normocephalic, anicteric Respiratory/Chest: chest wall non-tender, decreased breath sounds, positive rhonchi Cardiovascular: normal peripheral pulses, normal rate Abdomen: normal bowel sounds, soft, non tender Genitourinary: normal external genitalia Extremities: no cyanosis Skin: no rash 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/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 grossly normal Lymphatic: no neck adenopathy Laboratory Tests 10/20/16 05:20: White Blood Count 7.7, Red Blood Count 3.63L, Hemoglobin 10.3L, Hematocrit 30.5L , Mean Corpuscular Volume 84, Mean Corpuscular Hemoglobin 28.5, Mean Corpuscular Hemoglobin Concent 33.9, Red Cell Distribution Width 12.8, Platelet Count 479H, Mean Platelet Volume 5.0L, Neutrophils (%) (Auto) 56.2, Lymphocytes (%) (Auto) 31.2, Monocytes (%) (Auto) 8.8, Eosinophils (%) (Auto) 2.2, Basophils (%) (Auto) 1.6, Sodium Level 137, Potassium Level 3.5, Chloride Level 94L, Carbon Dioxide Level 28, Anion Gap 15, Blood Urea Nitrogen 14, Creatinine 0.8, Estimat Glomerular Filtration Rate > 60, Glucose Level 120H, Calcium Level 9.3, Total Bilirubin 0.3, Aspartate Amino Transf (AST/SGOT) 60H, Alanine Aminotransferase (ALT/SGPT) 144H, Alkaline Phosphatase 336H, Total Protein 7.1, Albumin 3.4L, Globulin 3.7, Albumin/Globulin Ratio 0.9L Current Medications Medications (Trade) Dose Ordered Sig/Van Route PRN Reason Start Time Stop Time Status Last Admin Dose Admin Acetaminophen (Tylenol) 650 mg Q4H PRN ORAL T>100.5 10/12/16 23:00 11/11/16 22:59 10/19/16 00:14 Acetaminophen/ Hydrocodone Bitart ([place] 10/325) 1 ea Q6HR PRN ORAL For Pain 10/17/16 19:00 10/24/16 18:59 10/20/16 18:17 Amlodipine Besylate (Norvasc) 5 mg DAILY ORAL 10/13/16 09:00 11/12/16 08:59 10/20/16 08:25 Aripiprazole (Abilify) 30 mg BEDTIME ORAL 10/13/16 21:00 11/12/16 20:59 10/20/16 20:43 Cyclobenzaprine HCl (Flexeril) 10 mg THREE TIMES A DAY ORAL 10/17/16 19:30 11/16/16 19:29 10/20/16 17:20 Dextrose (Dextrose 50%) STAT PRN IV Hypoglycemia 10/13/16 07:00 11/12/16 06:59 Diphenoxylate HCl/ Atropine (Lomotil) 2.5 mg Q4H PRN ORAL Diarrhea 10/13/16 23:30 11/12/16 23:29 10/14/16 00:15 Gabapentin (Neurontin) 300 mg BID ORAL 10/13/16 09:00 11/12/16 08:59 10/20/16 17:20 Heparin Sodium (Porcine) (Heparin 5000 units/ml) 5,000 units EVERY 12 HOURS SUBQ 10/13/16 09:00 11/12/16 08:59 10/20/16 20:40 Insulin Aspart (NovoLOG) BEFORE MEALS AND HS SUBQ 10/13/16 06:30 11/12/16 06:29 10/20/16 17:19 Ondansetron HCl (Zofran) 4 mg Q6H PRN IVP Nausea & Vomiting 10/13/16 01:00 11/12/16 00:59 Polyethylene Glycol (Miralax) 17 gm DAILYPRN PRN ORAL Constipation 10/13/16 07:00 11/12/16 06:59 Sucralfate (Carafate) 1 gm FOUR TIMES A DAY ORAL 10/13/16 09:00 11/12/16 08:59 10/20/16 20:36 Tamsulosin HCl (Flomax) 0.4 mg DAILY ORAL 10/13/16 09:00 11/12/16 08:59 10/20/16 08:25 Trazodone HCl (Desyrel) 150 mg BEDTIME ORAL 10/13/16 21:00 11/12/16 20:59 10/20/16 20:36 Vancomycin HCl (Vanco rx to dose) 1 ea DAILY PRN MISC Per rx protocol 10/13/16 09:00 11/12/16 08:59 Vancomycin HCl/ Dextrose (Vancomycin/D5W) 275 ml @ 183.708 mls/hr Q12HR@0200,1400 IVPB 10/13/16 02:00 10/22/16 01:59 10/20/16 13:22 ANDRESSA CRAIG Oct 20, 2016 23:46
[2016-10-21] VITALS: BP 120/71
[2016-10-21] MEDS: Norco 10mg/325mg tab ORAL PRN ×2 (00:21→06:16)
[2016-10-21] MEDS: Vancomycin 1.25 GM in D5W 275 ML IVPB SCH (01:28)
[2016-10-21 04:00] VITALS: BP 104/63
[2016-10-21] MEDS: NovoLOG Insulin Flexpen SUBQ SCH ×2 (06:16→11:48)
[2016-10-21] MEDS: Cyclobenzaprine 10mg Tab ORAL SCH (08:19)
[2016-10-21] MEDS: Tamsulosin 0.4mg cap ORAL SCH (08:19)
[2016-10-21] MEDS: Sucralfate 1gm tab ORAL SCH (08:20)
[2016-10-21] MEDS: Heparin 5000 units/ml inj SUBQ SCH (08:23)
[2016-10-21 08:53] VITALS: BP 117/65
--- NOTE | 2016-10-21 10:28 | Infectious Diseases Prog Note ---
Assessment/Plan Assessment/Plan ASSESSMENT: 51-year-old male with: Pneumonia, doubt TB - SCx Serratia,and MRSA, AFB smear(-) x2, TB PCR(-) - Histoplasma(+) 1:8 ?significance - CXR 10/18: interim clearing of previously demonstrated right basilar infiltrate. Mild persistent chronic appearing interstitial parenchymal disease and central bronchial wall thickening, suspect on the basis of COPD changes - CT Chest 10/07: Extensive diffuse bilateral pulmonary groundglass opacities - negative: T-spot, CrAg, blastomyces Negative HIV Negative C.difficile Leukocytosis, mild - resolved Low grade fever - recurrent x1 resolved Elevated LFTs, acute - improved COPD exacerbation Elevated ESR, CRP Diabetes. History of psychiatric disorder. BPH. NKDA Full Code PLAN: finishes IV vancomycin d# / today. Ok to DC off of ABX from ID standpoint ( 10/14 SP Zosyn d# 7 / ) Monitor CBC, temperatures Monitor BMP. Monitor chest x-ray. Subjective Allergies: Coded Allergies: No Known Allergies (Unverified , 10/07/16) Subjective remains afebrile. no new complaint for possible DC Objective Vital Signs Last 24 Hour Vital Signs Date Time Temp Pulse Resp B/P Pulse Ox O2 Delivery O2 Flow Rate FiO2 10/21/16 09:18 97.9 10/21/16 09:18 97.9 10/21/16 08:53 97.9 79 20 117/65 95 Room Air 10/21/16 08:19 73 117/64 10/21/16 07:16 98.1 10/21/16 04:00 98.1 73 20 104/63 90 Room Air 10/21/16 00:00 98.4 85 18 120/71 92 Room Air 10/20/16 21:36 Room Air 10/20/16 21:36 95 Room Air 10/20/16 20:08 98.6 87 20 126/76 90 Room Air 10/20/16 16:00 97.9 88 22 139/84 91 Room Air 10/20/16 12:00 97.0 77 20 118/75 99 Room Air Height (Feet): 5 Height (Inches): 6.00 Weight (Pounds): 180 General Appearance: no acute distress Respiratory/Chest: no respiratory distress Cardiovascular: normal rate, regular rhythm Abdomen: normal bowel sounds, soft, non tender, non distended Current Medications Medications (Trade) Dose Ordered Sig/Van Route PRN Reason Start Time Stop Time Status Last Admin Dose Admin Acetaminophen (Tylenol) 650 mg Q4H PRN ORAL T>100.5 10/12/16 23:00 11/11/16 22:59 10/19/16 00:14 Acetaminophen/ Hydrocodone Bitart ([place] 10/325) 1 ea Q6HR PRN ORAL For Pain 10/17/16 19:00 10/24/16 18:59 10/21/16 06:16 Amlodipine Besylate (Norvasc) 5 mg DAILY ORAL 10/13/16 09:00 11/12/16 08:59 10/21/16 08:19 Aripiprazole (Abilify) 30 mg BEDTIME ORAL 10/13/16 21:00 11/12/16 20:59 10/20/16 20:43 Cyclobenzaprine HCl (Flexeril) 10 mg THREE TIMES A DAY ORAL 10/17/16 19:30 11/16/16 19:29 10/21/16 08:19 Dextrose (Dextrose 50%) STAT PRN IV Hypoglycemia 10/13/16 07:00 11/12/16 06:59 Diphenoxylate HCl/ Atropine (Lomotil) 2.5 mg Q4H PRN ORAL Diarrhea 10/13/16 23:30 11/12/16 23:29 10/14/16 00:15 Gabapentin (Neurontin) 300 mg BID ORAL 10/13/16 09:00 11/12/16 08:59 10/21/16 08:27 Heparin Sodium (Porcine) (Heparin 5000 units/ml) 5,000 units EVERY 12 HOURS SUBQ 10/13/16 09:00 11/12/16 08:59 10/21/16 08:23 Insulin Aspart (NovoLOG) BEFORE MEALS AND HS SUBQ 10/13/16 06:30 11/12/16 06:29 10/20/16 17:19 Ondansetron HCl (Zofran) 4 mg Q6H PRN IVP Nausea & Vomiting 10/13/16 01:00 11/12/16 00:59 Polyethylene Glycol (Miralax) 17 gm DAILYPRN PRN ORAL Constipation 10/13/16 07:00 11/12/16 06:59 Sucralfate (Carafate) 1 gm FOUR TIMES A DAY ORAL 10/13/16 09:00 11/12/16 08:59 10/21/16 08:20 Tamsulosin HCl (Flomax) 0.4 mg DAILY ORAL 10/13/16 09:00 11/12/16 08:59 10/21/16 08:19 Trazodone HCl (Desyrel) 150 mg BEDTIME ORAL 10/13/16 21:00 11/12/16 20:59 10/20/16 20:36 Vancomycin HCl (Vanco rx to dose) 1 ea DAILY PRN MISC Per rx protocol 10/13/16 09:00 11/12/16 08:59 Vancomycin HCl/ Dextrose (Vancomycin/D5W) 275 ml @ 183.708 mls/hr Q12HR@0200,1400 IVPB 10/13/16 02:00 10/22/16 01:59 10/21/16 01:28 JAREK CLARKE 24, 2017 10:28
[2016-10-21] MEDS ORDERED: Tubing IV Secondary IV ONE (11:59)
[2016-10-21] MEDS ORDERED: NS 275ml ONE (11:59)
--- NOTE | 2016-10-21 18:06 | Internal Med Progress Note ---
Subjective Date of Service: Oct 21, 2016 Physician Name Gopal Musa Attending Physician Monty Irwin MD Allergies: Coded Allergies: No Known Allergies (Unverified , 10/07/16) Subjective 51 YO M admitted with respiratory distress, now pneumonia Currently tolerating nasal canula. Cover for Int Med-Dr Irwin. Await discharge to [facility] Objective Last Vital Signs Date Time Temp Pulse Resp B/P Pulse Ox O2 Delivery O2 Flow Rate FiO2 10/21/16 09:18 97.9 10/21/16 08:53 79 20 117/65 95 Room Air 10/19/16 19:30 3.0 36 Intake and Output 10/20/16 10/21/16 19:00 07:00 Intake Total 480 ml 1095.000 ml Balance 480 ml 1095.000 ml Intake Oral 480 ml 820 ml IV Total 275.000 ml # Voids 3 2 Objective General Appearance: WD/WN, no apparent distress, alert EENT: PERRL/EOMI, normal ENT inspection, TMs normal Neck: non-tender, normal alignment, supple Cardiovascular: normal peripheral pulses, normal rate, regular rhythm, no gallop/murmur, no JVD Respiratory/Chest: Nasal canula; respiratory distress, crackles/rales, rhonchi - bilaterally, expiratory wheezing Abdomen: normal bowel sounds, non tender, soft, no organomegaly, no mass Extremities: normal range of motion Neurologic: 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 Tolerating nasal canula. (3) COPD with acute exacerbation (4) Pneumonia Assessment & Plan: Bilateral. See ID and pulmonary note. Cont vanco. PPD neg. Await sputum acid fast culture results. (5) Hypertension Assessment & Plan: Cont amlodipine. (6) Diabetes mellitus Assessment & Plan: Cont novolog sliding scale. (7) Hypercholesteremia (8) Anemia (9) PTSD (post-traumatic stress disorder) Assessment/Plan Discharge to [facility] today. GOPAL MUAS Oct 21, 2016 18:06
--- NOTE | 2016-10-21 23:10 | Pulmonology Progress Note ---
Assessment/Plan Problems: (1) Interstitial pneumonitis Assessment & Plan: lymphocyte predominance persists (2) Respiratory failure with hypoxia Assessment & Plan: resolved (3) Multiple nodules of lung (4) Hyponatremia (5) Anemia in chronic kidney disease (CKD) (6) COPD with acute exacerbation (7) Nicotine addiction Assessment/Plan mrsa in sputum clinically continues to improve continue antibiotics respiratory treatment f/u electrolytes check sputum add carafate po for epigastric pain PPD was negative cxr improving doubt TB, since pt responded to antibacterial regimen Subjective Allergies: Coded Allergies: No Known Allergies (Unverified , 10/07/16) Objective Last 24 Hour Vital Signs Date Time Temp Pulse Resp B/P Pulse Ox O2 Delivery O2 Flow Rate FiO2 10/21/16 09:18 97.9 10/21/16 09:18 97.9 10/21/16 08:53 97.9 79 20 117/65 95 Room Air 10/21/16 08:19 73 117/64 10/21/16 07:16 98.1 10/21/16 04:00 98.1 73 20 104/63 90 Room Air 10/21/16 00:00 98.4 85 18 120/71 92 Room Air Intake and Output 10/20/16 10/21/16 19:00 07:00 Intake Total 480 ml 1095.000 ml Balance 480 ml 1095.000 ml Intake Oral 480 ml 820 ml IV Total 275.000 ml # Voids 3 2 Objective General Appearance: WD/WN, no acute distress HEENT: normocephalic, anicteric Respiratory/Chest: chest wall non-tender, decreased breath sounds, positive rhonchi Cardiovascular: normal peripheral pulses, normal rate Abdomen: normal bowel sounds, soft, non tender Genitourinary: normal external genitalia Extremities: no cyanosis Skin: no rash 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
--- NOTE | 2016-10-25 05:09 | Discharge Summary 2 SIG ---
DATE OF ADMISSION: 10/07/2016 DATE OF DISCHARGE: 10/21/2016 NOTE: CANCELED DICTATION Monty Irwin M.D. I have been assigned to dictate discharge summary on this account and I was not involved in the patient's management. Melody [email or web address] bynum DR: STEVIE JOB#: [id number] CC:
== END 2016-10-21 12:00 | DRG 140 ==
LOC: EDBD 02:14 → EMR 02:58 → EDBEDREQ 03:40 → 2W 03:58 → EDBEDREQSVC 04:40 → EDBEDREQ 04:40 → 2W 16:00 → 4W 10-12 22:26
DX: J44.1 Chronic obstructive pulmonary disease with (acute) exacerbation (principal); J96.01 Acute respiratory failure with hypoxia; J18.9 Pneumonia, unspecified organism; E11.9 Type 2 diabetes mellitus without complications; I12.9 Hypertensive chronic kidney disease with stage 1 through stage 4 chronic kidney disease, or unspecified chronic kidney disease; D63.1 Anemia in chronic kidney disease; J84.89 Other specified interstitial pulmonary diseases; E87.1 Hypo-osmolality and hyponatremia; E78.5 Hyperlipidemia, unspecified; N18.9 Chronic kidney disease, unspecified; F17.200 Nicotine dependence, unspecified, uncomplicated; F43.10 Post-traumatic stress disorder, unspecified; N40.0 Benign prostatic hyperplasia without lower urinary tract symptoms; R91.8 Other nonspecific abnormal finding of lung field
CPT/HCPCS: 36415; 36600; 71010; 71250; 76775; 80048; 80053; 80069; 80202; 81003; 82378; 82436; 82533; 82550; 82553; 82803; 82962; 83615; 83735; 83880; 83930; 83935; 84100; 84133; 84300; 84439; 84443; 84481; 84484; 84550; 85007; 85025; 85651; 86140; 86171; 86580; 86612; 86703; 87045; 87070; 87081; 87116; 87181; 87205; 87449; 87493; 87556; 89050; 93005; 93306; 93970; 94640; 94660; 94664; 94760; J1815; J2405; J7620

== ENCOUNTER 2019-12-19 14:03 | Emergency (ER) | payer MEDICAID, OTHER ==
[~2019-12-19] VITALS: Ht 170.2 cm; Wt 90.7 kg
[~2019-12-19 14:03] MED LIST changes: +ABILIFY20 MG ORAL; +ACETAMINOPHEN-1 EAC1 ORAL; +COGENTIN1 MG ORAL; +CYCLOBENZAPRINE10 MG ORAL; +GEMFIBROZIL600 M1 PO; +GLIPIZIDE10 MG PO; +HYDROXYZINE HCL50 M1 PO; +LISINOPRIL5 MG ORAL; +METFORMIN HCL500 M4 ORAL; +MIRTAZAPINE30 M1 ORAL; +NAPROXEN250 M1 PO; +NEURONTIN300 MG ORAL; +OMEPRAZOLE20 M2 ORAL; +SEROQUEL XR200 MG ORAL; +TAMSULOSIN HCL0.4 MG ORAL; +TEMAZEPAM15 MG ORAL; +TRAZODONE HCL100 MG ORAL
[2019-12-19 14:08] VITALS: BP 181/62
--- NOTE | 2019-12-19 14:37 | Emergency Room Report ---
History of Present Illness General Chief Complaint: General Complaint Source: Patient Present Illness HPI Disclaimer: Please note that this report is being documented using [employer] technology. This can lead to erroneous entry secondary to incorrect interpretation by the dictating instrument. HPI: 54-year-old male with history of diabetes presents for evaluation of right- sided ear pain and drainage as well as bilateral pedal edema. Over the past 4 days he has noted bilateral swelling of his feet and ankles. Notes worsening pain with ambulation. Cannot recall a specific injury. No prior history of lower extremity edema. Denies history of kidney dysfunction. Denies recent fever, chills, chest pain, shortness of breath, nausea, vomiting, cough, sinus congestion. PMH: Diabetes PSH: Reviewed Allergies: Denies Social Hx: Reviewed Allergies: Coded Allergies: No Known Allergies (Unverified , 10/07/16) COVID-19 Screening Contact w/high risk pt: No Recent Travel to affected area: No Experienced COVID-19 symptoms?: No COVID-19 Testing performed GRADUATE TEACHING ASSISTANT: No Nursing Documentation-PMH Past Medical History: No History, Except For Hx Cardiac Problems: Yes Hx COPD: Yes Hx Diabetes: Yes Hx Cancer: No Hx Gastrointestinal Problems: No Hx Neurological Problems: No Review of Systems All Other Systems: negative except mentioned in HPI Physical Exam Vital Signs Date Time Temp Pulse Resp B/P (MAP) Pulse Ox O2 Delivery O2 Flow Rate FiO2 12/19/19 14:08 98.1 111 18 181/62 (101) 98 Room Air General: Awake and alert, no acute distress HEENT: NC/AT. EOMI. there is a purulent exudate in the external auditory canal on the right side. Pain with insertion of otoscope. The right tympanic membrane is opacified and bulging. Left external canal is dry, no edema, tympanic membrane is pearly [place] nonbulging Cardiovascular: RRR. S1 and S2 normal. No murmur appreciated Resp: Normal work of breathing. No cough, wheezing or crackles appreciated Abdomen: Abdomen is soft, nondistended. Nontender Skin: Intact. No abrasions, laceration or rash over the exposed skin MSK: Normal tone and bulk. Moving all extremities. No obvious deformity. Bilateral pitting edema to the ankles. No overlying skin changes. Neuro: Awake and alert. Mentating appropriately. Medical Decision Making Diagnostic Impression: Primary Impression: Lower extremity edema Additional Impressions: Otitis media Otitis externa ER Course 54-year-old male with a history of diabetes presents for evaluation of bilateral leg pain and swelling as well as right-sided ear pain. Differential includes but not limited to otitis media, otitis externa, acute renal failure, stasis dermatitis, cellulitis, venous insufficiency to name a few. Labs have returned within normal limits. The patient was given Lasix with good effect. He is achieving good diuresis in the ED. He require antibiotics for the right- sided otitis media and otitis externa. Discussed admitting the patient as he has had elevated blood pressures however they have improved after the patient received Lasix. He declined hospital admission at this time stated he would follow-up with his PMD, Dr. Dumont, on an outpatient basis. Contacted the PMD office to update them. Patient would like to return home at this time and feels well enough to ambulate. Will give him 2 days of Lasix, refill his gabapentin prescription and antibiotics for right otitis media/externa. We will follow-up with his PMD. Discussed reasons to return to the emergency department. He understands and agrees with this treatment plan. Laboratory Tests Test 12/19/19 15:00 White Blood Count 4.5 K/UL (4.8-10.8) L Red Blood Count 4.00 M/UL (4.70-6.10) L Hemoglobin 9.6 G/DL (14.2-18.0) L Hematocrit 30.9 % (42.0-52.0) L Mean Corpuscular Volume 77 FL (80-99) L Mean Corpuscular Hemoglobin 23.9 PG (27.0-31.0) L Mean Corpuscular Hemoglobin Concent 31.0 G/DL (32.0-36.0) L Red Cell Distribution Width 15.3 % (11.6-14.8) H Platelet Count 228 K/UL (150-450) Mean Platelet Volume 6.5 FL (6.5-10.1) Neutrophils (%) (Auto) 48.6 % (45.0-75.0) Lymphocytes (%) (Auto) 42.0 % (20.0-45.0) Monocytes (%) (Auto) 5.0 % (1.0-10.0) Eosinophils (%) (Auto) 3.4 % (0.0-3.0) H Basophils (%) (Auto) 1.0 % (0.0-2.0) Sodium Level 140 MMOL/L (136-145) Potassium Level 4.2 MMOL/L (3.5-5.1) Chloride Level 104 MMOL/L (98-107) Carbon Dioxide Level 26 MMOL/L (21-32) Anion Gap 10 mmol/L (5-15) Blood Urea Nitrogen 18 mg/dL (7-18) Creatinine 1.6 MG/DL (0.55-1.30) H Estimated Glomerular Filtration Rate 44.9 mL/min (>60) Glucose Level 218 MG/DL (74-106) H Calcium Level 8.9 MG/DL (8.5-10.1) Troponin I 0.000 ng/mL (0.000-0.056) Pro-B-Type Natriuretic Peptide 25 pg/mL (0-125) Last Vital Signs Date Time Temp Pulse Resp B/P (MAP) Pulse Ox O2 Delivery O2 Flow Rate FiO2 12/19/19 14:18 111 18 Room Air 12/19/19 14:08 98.1 181/62 98 Disposition: HOME, SELF-CARE Condition: Improved Scripts Gabapentin (Neurontin) 300 Mg Capsule 600 MG ORAL TID, #7 CAP 0 Refills Prov: Christian Colvin MD 12/19/19 Furosemide* (LASIX*) 40 Mg Tablet 40 MG ORAL DAILY for 3 Days, #3 TAB Prov: Christian Colvin MD 12/19/19 Amoxicillin/Potassium Clav 875-125* (AUGMENTIN 875-125 TABLET*) 1 Each Tablet 1 TAB ORAL TWICE A DAY for 73 Days, #14 TAB Prov: Christian Colvin MD 12/19/19 Ofloxacin (OFLOXACIN) 5 Ml Drops 10 DROP OT DAILY for 10 Days, #50 ML Prov: Christian Colvin MD 12/19/19 Christian Colvin MD December 19, 2019 14:37
[2019-12-19 15:40] LABS: ANION GAP 10 mmol/L (5-15); BLOOD UREA NITROGEN 18 mg/dL (7-18); CALCIUM 8.9 MG/DL (8.5-10.1); CARBON DIOXIDE 26 MMOL/L (21-32); CHLORIDE 104 MMOL/L (98-107); CREATININE 1.6 MG/DL (0.55-1.30); POTASSIUM 4.2 MMOL/L (3.5-5.1); SODIUM 140 MMOL/L (136-145)
[2019-12-19] MEDS ORDERED: AUGMENTIN 875-1 EAC1 ORAL (15:40)
[2019-12-19] MEDS ORDERED: OFLOXACIN5 ML OT (15:40)
[2019-12-19 16:10] VITALS: BP 151/97
[2019-12-19] MEDS ORDERED: Morphine Sulfate 2mg/ml Inj(IV/IM USE ONLY) IVP ONE (16:45)
[2019-12-19 17:42] LABS: EOSINOPHILS % (AUTO) 3.4 % (0.0-3.0); HEMATOCRIT 30.9 % (42.0-52.0); HEMOGLOBIN 9.6 G/DL (14.2-18.0); MEAN CORPUSCULAR VOLUME 77 FL (80-99); NEUTROPHILS % (AUTO) 48.6 % (45.0-75.0); PLATELET COUNT 228 K/UL (150-450); RED CELL DISTRIBUTION WIDTH 15.3 % (11.6-14.8); WHITE BLOOD COUNT 4.5 K/UL (4.8-10.8)
[2019-12-19] MEDS ORDERED: FUROSEMIDE40 MG ORAL (18:02)
[2019-12-19] MEDS ORDERED: NEURONTIN300 MG ORAL (18:03)
[2019-12-19 18:10] VITALS: BP 162/95
[2019-12-19 18:30] VITALS: BP 158/98
== END 2019-12-19 18:30 | disposition home or self-care (01) ==
LOC: EMR 14:40 → EDBD 14:40 → CANBEDREQ 18:07 → EMR 18:30
DX: R60.0 Localized edema (principal); H66.91 Otitis media, unspecified, right ear; H60.91 Unspecified otitis externa, right ear; J44.9 Chronic obstructive pulmonary disease, unspecified; E11.9 Type 2 diabetes mellitus without complications
CPT/HCPCS: 36415; 80048; 83880; 84484; 85025; 96374; 96375; J1940; J2270; Z7502; 99284